=== PATIENT | female | born 1950 | race Caucasian/White ===

== ENCOUNTER → 2016-03-07 | Outpatient (CLI) | payer MEDICARE, OTHER ==
--- NOTE | 2016-03-08 07:51 | XR ---
EXAMINATION TYPE: XR abdomen 2V DATE OF EXAM: 03/07/2016 9:18 AM COMPARISON: NONE HISTORY: Right lower quadrant pain TECHNIQUE: Single supine KUB image of the abdomen is obtained. FINDINGS: The osseous structures are intact. The bowel gas pattern is nonspecific. Lung bases are clear. Post surgical change right upper quadrant. Nonspecific calcifications in the pelvis. IMPRESSION: 1. Nonspecific abdomen.
== END | disposition home or self-care (01) ==
LOC: RADXRYALE 09:06
PROVIDERS: ATTEND Physician Assistant Medical
DX: R10.9 Unspecified abdominal pain (principal)
CPT/HCPCS: 74020

== ENCOUNTER → 2016-03-13 | Outpatient (CLI) | payer MEDICARE, OTHER ==
--- NOTE | 2016-03-13 17:00 | CT ---
EXAMINATION TYPE: CT abdomen pelvis w con DATE OF EXAM: 03/13/2016 3:11 PM COMPARISON: 10/05/2014 INDICATION: Right lower quadrant pain and diarrhea. DLP: 535.30 mGycm, Automated exposure control for dose reduction was used. CONTRAST: 100 mL of Omnipaque 300. Study performed with Oral Contrast TECHNIQUE: Axial images were obtained from above the diaphragm to the pubic rami in the axial plane a t 5 mm thick sections. Reconstructed images are reviewed on the computer in the coronal plane. FINDINGS: Limited CT sections are obtained the lung bases. The lung bases are clear. CT ABDOMEN: Liver: Normal Spleen: Normal. Splenule is adjacent to the spleen. Pancreas: Normal Adrenal glands: The adrenal glands are normal. Gallbladder: Normal Kidneys: No masses are evident. No hydronephrosis is present. No cysts are present. Delayed images were obtained through the kidneys, which remain unremarkable. Aorta: Vascular calcification is within the aorta. Inferior vena cava: Normal. CT PELVIS: Multiple diverticuli within the sigmoid colon. There is wall thickening diffusely through the proxima l sigmoid colon into the descending colon from the mid transverse colon. Correlate for colitis. There are loops of bowel which are incompletely distended or lack oral contrast limiting their evaluation. Appendix: Normal as visualized. Urinary bladder: Decompressed with limited evaluation Genitourinary structures: Uterus and ovaries are not identified. There may be a 1.2 cm cyst in the ri ght adnexal region. Osseous structures: No suspicious lytic or sclerotic lesions. IMPRESSIONS: 1. Clinical correlation recommended for descending colon colitis. 2. Diverticulosis to the sigmoid colon without acute diverticulitis.
== END | disposition home or self-care (01) ==
LOC: RADCTMAIN 13:22
PROVIDERS: ATTEND Family Medicine
DX: K57.30 Diverticulosis of large intestine without perforation or abscess without bleeding (principal)
CPT/HCPCS: 74177; Q9967

== ENCOUNTER 2016-04-02 08:58 | Day surgery (SDC) | payer MEDICARE, OTHER ==
[2016-03-29 14:25] VITALS: BMI 30.2
[~2016-04-02 08:58] MED LIST: LACTATED RINGERS 1,000 ML IV SCH
[2016-04-02] MEDS ORDERED: LIDOCAINE 1% 20 ML VIAL (10MG/ML) FOR IV START SQ ONE (09:26)
[2016-04-02 09:37] VITALS: TEMP 98.8
[2016-04-02] MEDS ORDERED: PROPOFOL 10 MG/ML 20 ML VIAL IV ONE (10:17)
[2016-04-02] MEDS ORDERED: LIDOCAINE 1% INJ 10MG/ML (20 ML MDV) ONE (10:17)
[2016-04-02] MEDS ORDERED: GLYCOPYRROLATE 0.2 MG/ML 2 ML VIAL ONE (10:17)
--- NOTE | 2016-04-02 10:23 | P.GSHP ---
History of Present Illness H&P Date: 04/02/16 Chief Complaint: Colitis This a 65-year-old female who's had complaints of abdominal pain in the right left lower quadrant. Patient history of colitis. She presents today for colonoscopy. - Constitutional Constitutional: Reports as per HPI Past Medical History Past Medical History: CVA/TIA, Fibromyalgia, GERD/Reflux, Hyperlipidemia, Hypertension, Musculoskeletal Disorder, Pneumonia, Sleep Apnea/CPAP/BIPAP Additional Past Medical History / Comment(s): currently having lower abd pain with diarrhea with loss of control and no warning since Feb 2016, no longer b/p Rx,2008 TIA W/SLT WEAKNESS LT SIDE,no cpap,narcolepsy,MS History of Any Multi-Drug Resistant Organisms: None Reported Past Surgical History: Appendectomy, Cholecystectomy, Hysterectomy, Orthopedic Surgery Additional Past Surgical History / Comment(s): BREAST BIOPSY/CARPAL TUNNEL BILT. /RT WRIST SURG/BONE SPUR REMOVED FROM PELVIS/SURG FOR ACID REFLUX/ HEMORRHOIDECTOMY/THELMA CATARACTS Past Anesthesia/Blood Transfusion Reactions: No Reported Reaction Past Psychological History: No Psychological Hx Reported Smoking Status: Never smoker Past Alcohol Use History: Rare Past Drug Use History: None Reported - Past Family History Father Additional Family Medical History / Comment(s): at age 30 Sister(s) Family Medical History: Cancer Additional Family Medical History / Comment(s): BREAST Mother Family Medical History: COPD, Diabetes Mellitus, Renal Disease Medications and Allergies Home Medications Medication Instructions Recorded Confirmed Type Atorvastatin [Lipitor] 20 mg PO DAILY 06/13/14 03/29/16 History Celecoxib [CeleBREX] 50 mg PO QID PRN 06/13/14 04/02/16 History Clopidogrel [Plavix] 75 mg PO DAILY 06/13/14 04/02/16 History Famotidine [Pepcid] 20 mg PO BID 06/13/14 03/29/16 History Lansoprazole 30 mg PO DAILY 06/13/14 03/29/16 History oxyCODONE ER [OxyCONTIN] 15 mg PO TID 06/13/14 04/02/16 History Pregabalin [Lyrica] 100 mg PO TID 05/29/15 03/29/16 History Cyanocobalamin [Vitamin B-12] 1,000 mcg PO DAILY 03/29/16 03/29/16 History Allergies Allergy/AdvReac Type Severity Reaction Status Date / Time No Known Allergies Allergy Verified 03/29/16 14:11 Surgical - Exam Vital Signs Temp Pulse Resp BP Pulse Ox 98.8 F 58 L 16 134/72 100 04/02/16 09:33 04/02/16 09:33 04/02/16 09:33 04/02/16 09:33 04/02/16 09:33 - General well developed, no distress - Eyes PERRL - ENT normal pinna - Neck no masses - Respiratory normal expansion - Cardiovascular Rhythm: regular - Abdomen Abdomen: soft, non tender Assessment and Plan Plan: Colitis. We'll perform colonoscopy.
[2016-04-02 10:41] VITALS: RESP 18
--- NOTE | 2016-04-02 10:43 | P.OP ---
Date of Procedure: 04/02/16 Preoperative Diagnosis: Colitis Postoperative Diagnosis: Right colon polyp Diverticulosis of left colon and sigmoid colon Procedure(s) Performed: Colonoscopy Anesthesia: MAC Surgeon: Severo Meneses Pathology: other (Right colon polyp) Condition: stable Disposition: PACU Description of Procedure: Patient's placed on the endoscopy table in the lateral position. She received IV sedation. Digital rectal exam was performed which revealed no abnormalities. The flexible colonoscope was then placed patient anus and passed throughout the entire colon. The ileocecal valve was visualized. The cecum appeared normal. In the ascending colon there is a small polyp seen this removed the forcep. Remainder the ascending colon and transverse colon appeared normal. In the descending and sigmoid colon there was diverticulosis seen. There was increased diverticulosis in the sigmoid colon. The sigmoid colon appeared questionable inflamed. The scope was then brought back the rectum and this appeared normal. Scope was withdrawn for patient.
[2016-04-02 10:56] VITALS: BP 125/81; PULSE 61
== END 2016-04-02 11:30 | disposition home or self-care (01) ==
LOC: ORWHC2ENDO 08:58
PROVIDERS: ATTEND Surgery
DX: D12.2 Benign neoplasm of ascending colon (principal); K57.30 Diverticulosis of large intestine without perforation or abscess without bleeding; K21.9 Gastro-esophageal reflux disease without esophagitis; M79.7 Fibromyalgia; E78.5 Hyperlipidemia, unspecified; I10 Essential (primary) hypertension; G47.33 Obstructive sleep apnea (adult) (pediatric); Z79.02 Long term (current) use of antithrombotics/antiplatelets; Z79.891 Long term (current) use of opiate analgesic; Z79.899 Other long term (current) drug therapy; Z86.73 Personal history of transient ischemic attack (TIA), and cerebral infarction without residual deficits
CPT/HCPCS: 88305; 45380; J2001; J2704; 99153

== ENCOUNTER → 2016-04-29 | Outpatient (CLI) | payer MEDICARE, OTHER ==
[2016-04-29 09:32] LABS: EKG EKG PERFORMED
[2016-04-29 10:08] LABS: Basophils % (A) 0 %; CH 31.5; CHCM 33.1; Eosinophils # (A) 0.1 k/uL (0-0.7); Eosinophils % (A) 1 %; HCT 37.4 % (34.0-46.0); HDW 2.78; HGB 12.4 gm/dL (11.4-16.0); Luc # (Auto) 0.19; Luc % (Auto) 2; Lymphocytes # (A) 1.7 k/uL (1.0-4.8); Lymphocytes % (A) 18 %; MCH 31.8 pg (25.0-35.0); MCHC 33.3 g/dL (31.0-37.0); MCV 95.5 fL (80.0-100.0); Mean Platelet Volume 7.8; Monocytes # (A) 0.5 k/uL (0-1.0); Monocytes % (A) 5 %; Neutrophils # (A) 7.3 k/uL (1.3-7.7); Neutrophils % (A) 75 %; RBC 3.91 m/uL (3.80-5.40); RDW 14.1 % (11.5-15.5); WBC 9.8 k/uL (3.8-10.6); WBC (Perox) 9.92
[2016-04-29 10:42] LABS: Anion Gap 11 mmol/L; Carbon Dioxide 28 mmol/L (22-30); Chloride 106 mmol/L (98-107); Potassium 4.4 mmol/L (3.5-5.1); Sodium 145 mmol/L (137-145)
== END | disposition home or self-care (01) ==
LOC: LABPAT 08:43
PROVIDERS: ATTEND Surgery
DX: Z01.810 Encounter for preprocedural cardiovascular examination (principal); I10 Essential (primary) hypertension
CPT/HCPCS: 80051; 85025; 93005

== ENCOUNTER → 2016-04-29 | Outpatient (CLI) | payer MEDICARE, OTHER ==
[2016-04-29 10:31] LABS: Hemoglobin A1C 5.3 % (4.2-6.1)
[2016-04-29 10:42] LABS: Calcium 9.3 mg/dL (8.4-10.2)
[2016-04-30 13:09] LABS: Vitamin E (Alpha Tocopherol) 956 ug/dL (500-1800)
[2016-05-01 13:15] LABS: Mis test requested (Blood) Vitamin B12
[2016-05-06 16:35] LABS: Vitamin K 93 pg/mL (80-1160)
== END | disposition home or self-care (01) ==
LOC: LABWHC1 08:47
PROVIDERS: ATTEND Psychiatry & Neurology Pain Medicine
DX: G62.9 Polyneuropathy, unspecified (principal); R20.8 Other disturbances of skin sensation
CPT/HCPCS: 36415; 82306; 82310; 82550; 82607; 83036; 83519; 84207; 84425; 84446; 84590; 84591; 84597

== ENCOUNTER 2016-04-30 07:34 | Inpatient (IN) | payer MEDICARE, OTHER ==
[~2016-04-30 07:34] MED LIST changes: +DEXAMETHASONE SOD PHOSPHATE 10 MG/ML 1 ML VIAL IV ONE; +HEPARIN SODIUM,PORCINE 5,000 UNIT/ML 1 ML VIAL SQ ONE; +HYDROmorphone 1 MG/ML 1 ML SYRINGE IVP PRN; -LACTATED RINGERS 1,000 ML IV SCH; +LIDOCAINE 1% 20 ML VIAL (10MG/ML) FOR IV START INTRADERMA PRN; +MIDAZOLAM 2 MG/2 ML VIAL IV PRN; +ONDANSETRON 4 MG/2 ML VIAL IVP ONE; +SCOPOLAMINE 1.5MG/72HR PATCH TRANSDERM ONE; +ceFAZolin 2 GM in SODIUM CHLORIDE 0.9% 100 ML IVPB ONE; +metroNIDAZOLE-NS PMX 500 MG in SALINE 1 100ML.BAG IVPB ONE
[2016-04-30] MEDS: LACTATED RINGERS 1,000 ML IV SCH (08:41)
[2016-04-30] MEDS ORDERED: LIDOCAINE 1% 20 ML VIAL (10MG/ML) FOR IV START INTRADERMA ONE (08:41)
--- NOTE | 2016-04-30 08:42 | P.GSHP ---
History of Present Illness H&P Date: 04/30/16 Chief Complaint: Diverticulitis This is a 66-year-old female who's had long-standing problems with diverticulitis. Patient rents today for low anterior resection. Patient aware the risk of surgery including would infection bleeding anastomotic dehiscence and colostomy. - Constitutional Constitutional: Reports as per HPI Past Medical History Past Medical History: CVA/TIA, Fibromyalgia, GERD/Reflux, Hyperlipidemia, Hypertension, Musculoskeletal Disorder, Pneumonia, Sleep Apnea/CPAP/BIPAP Additional Past Medical History / Comment(s): currently having lower abd pain with diarrhea with loss of control and no warning since Feb 2016, no longer b/p Rx,2008 TIA W/SLT WEAKNESS LT SIDE,no cpap,narcolepsy,MS History of Any Multi-Drug Resistant Organisms: None Reported Past Surgical History: Appendectomy, Cholecystectomy, Hysterectomy, Orthopedic Surgery Additional Past Surgical History / Comment(s): BREAST BIOPSY/CARPAL TUNNEL BILT. /RT WRIST SURG/BONE SPUR REMOVED FROM PELVIS/SURG FOR ACID REFLUX/ HEMORRHOIDECTOMY/THELMA CATARACTS Past Anesthesia/Blood Transfusion Reactions: No Reported Reaction Past Psychological History: No Psychological Hx Reported Smoking Status: Never smoker Past Alcohol Use History: Rare Past Drug Use History: None Reported - Past Family History Father Additional Family Medical History / Comment(s): at age 30 Sister(s) Family Medical History: Cancer Additional Family Medical History / Comment(s): BREAST Mother Family Medical History: COPD, Diabetes Mellitus, Renal Disease Medications and Allergies Home Medications Medication Instructions Recorded Confirmed Type Atorvastatin [Lipitor] 20 mg PO DAILY 06/13/14 04/30/16 History Celecoxib [CeleBREX] 200 mg PO DAILY PRN 06/13/14 04/30/16 History Clopidogrel [Plavix] 75 mg PO DAILY 06/13/14 04/30/16 History Famotidine [Pepcid] 20 mg PO BID 06/13/14 04/30/16 History Lansoprazole 30 mg PO DAILY 06/13/14 04/30/16 History oxyCODONE ER [OxyCONTIN] 15 mg PO TID 06/13/14 04/30/16 History Pregabalin [Lyrica] 100 mg PO TID 05/29/15 04/30/16 History Cyanocobalamin [Vitamin B-12] 1,000 mcg PO BID 03/29/16 04/30/16 History Perampanel [Fycompa] 8 mg PO HS 04/26/16 04/30/16 History rOPINIRole HCL [Requip] 0.5 mg PO HS 04/26/16 04/30/16 History Allergies Allergy/AdvReac Type Severity Reaction Status Date / Time No Known Allergies Allergy Verified 04/30/16 08:17 Surgical - Exam Vital Signs Temp Pulse Resp BP Pulse Ox 97.8 F 77 16 104/79 96 04/30/16 08:11 04/30/16 08:11 04/30/16 08:11 04/30/16 08:11 04/30/16 08:11 - General well developed, no distress - Eyes PERRL - ENT normal pinna - Neck no masses - Respiratory normal expansion - Cardiovascular Rhythm: regular - Abdomen Abdomen: soft, non tender Assessment and Plan Plan: Diverticulosis. We'll perform low anterior resection.
[2016-04-30] MEDS ORDERED: fentaNYL (PF) 50 MCG/ML 2 ML AMP IV ONE (08:55)
[2016-04-30] MEDS ORDERED: NALBUPHINE 10 MG/ML AMPUL IV PRN (09:08)
[2016-04-30] MEDS ORDERED: diphenhydrAMINE 50 MG/ML 1 ML VIAL IVP PRN (09:08)
[2016-04-30] MEDS ORDERED: PROPOFOL 10 MG/ML 20 ML VIAL IV ONE (09:24)
[2016-04-30] MEDS ORDERED: NEOSTIGMINE 1 MG/ML 10 ML VIAL ONE (09:24)
[2016-04-30] MEDS ORDERED: SUCCINYLCHOLINE CHLORIDE 100 MG/5 ML SYR IV ONE (09:24)
[2016-04-30] MEDS ORDERED: ePHEDrine 50 MG/ML 1 ML AMP ONE (09:24)
[2016-04-30] MEDS ORDERED: MIDAZOLAM 2 MG/2 ML VIAL ONE (09:24)
[2016-04-30] MEDS ORDERED: ROCURONIUM BROMIDE 10 MG/ML 10 ML VIAL IV ONE (09:24)
[2016-04-30] MEDS ORDERED: LIDOCAINE 1% INJ 10MG/ML (20 ML MDV) ONE (09:24)
[2016-04-30] MEDS ORDERED: GLYCOPYRROLATE 0.2 MG/ML 2 ML VIAL ONE (09:24)
[2016-04-30] MEDS ORDERED: LACTATED RINGERS 1,000 ML IV ONE ×2 (10:30)
[2016-04-30] MEDS ORDERED: ONDANSETRON 4 MG/2 ML VIAL IVP PRN (11:13)
--- NOTE | 2016-04-30 11:13 | P.OP ---
Date of Procedure: 04/30/16 Preoperative Diagnosis: Diverticulitis Postoperative Diagnosis: Diverticulitis Incarcerated umbilical hernia Procedure(s) Performed: Low anterior resection Repair of incarcerated umbilical hernia Partial greater omentectomy Anesthesia: CHANDLER Surgeon: Severo Meneses Estimated Blood Loss (ml): 15 Pathology: other (Sigmoid colon, greater omentum) Condition: stable Disposition: PACU Description of Procedure: The patient's placed on the operating table in the supine position. She received general anesthesia. She was then placed in dorsal lithotomy position. Her abdomen was prepped and draped in the usual sterile fashion. The abdomen was entered through a low midline incision. The Bookwalter retractors placed a wound. The sigmoid colon was exposed. There appeared to be evidence of diverticular changes in the sigmoid colon. The sigmoid colon was mobilized medially by dividing the peritoneal attachments. And then the white line of Toldt was divided on the left colon. At this point the sigmoid colon was further mobilized towards the rectum a window was made in the mesial rectum and then the contour stapler was closed and fired across the proximal rectum. Next using the Enseal X one large jaw the mesentery of the rectum and sigmoid colon was divided. The left colon was transected with the GI stapler. And then the pursestring device was applied to the proximal colon. He colon was opened and then the 25 mm EEA staple anvil was placed in the colon and then the pursestring was secured. Next the EEA stapler was placed patient anus by the child welfare assistant. And then the stapler was positioned against the stomach date line and then the stapler was opened and the spike was driven through the staple line. The anvil was connected and then the stapler was closed and fired and then withdrawn. 2 intact tissue doughnut rings were removed from the stapler. At this point a hydro-receiving team member up was placed across the proximal colon and then the sigmoidoscope was placed patient anus and then the rectum was insufflated with air. There was a small pinpoint leak of air at the 12 o'clock position the staple line. This was buttressed with 3-0 GI silk. The rectum was then reinsufflated and there was no air leak seen. The abdomen was then irrigated. The fascia was closed with looped #1 PDS suture. During the fascial closure there was a 3 cm incarcerated umbilical hernia which was repaired. The incarcerated greater omentum was transected with the electrocautery and the defect was closed with 0 PDS suture. Skin was closed ed. Patient was sent to recovery in stable condition.
[2016-04-30] MEDS: D5-0.45% NACL WITH KCL 20MEQ/L 1,000 ML IV SCH ×2 (12:41→21:22)
[2016-04-30] MEDS: METOCLOPRAMIDE 5 MG/ML 2 ML VIAL IVP SCH ×2 (12:41→18:26)
[2016-04-30 13:45] VITALS: BMI 31.6
[2016-04-30] MEDS ORDERED: oxyCODONE ER 15 MG TAB.ER.12H PO SCH (16:00)
[2016-04-30] MEDS: PREGABALIN 100 MG CAP PO SCH ×2 (17:57→22:23)
--- NOTE | 2016-04-30 18:08 | CONS ---
DATE OF CONSULTATION: REASON FOR CONSULTATION: Perioperative hypotension. Patient is a 66-year-old with history of diverticulitis in the past. Patient was admitted for low anterior resection. Patient successfully underwent surgery. Postoperatively patient did clinically well except for being excessively drowsy today. Patient is hypotensive, with blood pressure systolic going up to high 70s. Patient denied any lightheadedness at this point of time. Patient when I saw her was excessively sleepy with slurry speech secondary to the pain medications she was receiving. I extensively counseled her regarding usage of narcotic medications and recovery. Patient did not pass gas yet. Does have absent or sluggish bowel sounds. REVIEW OF SYSTEMS: GENERAL: As described in HPI. CONSTITUTIONAL: No fever, no malaise, no fatigue. HEENT: No recent visual problems or hearing problems. Denied any sore throat. CARDIOVASCULAR: No chest pain, orthopnea, PND, no palpitations, no syncope. PULMONARY: No shortness of breath, no cough, no hemoptysis. GASTROINTESTINAL: No diarrhea, no nausea, no vomiting, no abdominal pain. Normoactive bowel sounds. NEUROLOGICAL: No headaches, no weakness, no numbness. HEMATOLOGICAL: Denies any bleeding or petechiae. GENITOURINARY: Denies any burning micturition, frequency, or urgency. MUSCULOSKELETAL/RHEUMATOLOGICAL: Denies any joint pain, swelling, or any muscle pain. ENDOCRINE: Denies any polyuria or polydipsia. The rest of the 14 point review of systems is negative. Past medical history is significant for: 1. CVA, TIA. 2. Fibromyalgia. 3. Gastroesophageal reflux disease. 4. Hyperlipidemia. 5. Hypertension. 6. Narcolepsy. I suspect it is mostly due to overuse of narcotics rather than actual narcolepsy. 7. Appendectomy. 8. Cholecystectomy. 9. Hysterectomy. 10. Orthopedic surgery. 11. Carpal tunnel surgery. SOCIAL HISTORY: Denied any smoking, alcohol abuse or any drug abuse. FAMILY HISTORY: Father at age 30. Mother had COPD, diabetes mellitus and renal disease. Home medications include: 1. Atorvastatin. 2. Celecoxib. 3. Plavix. 4. Famotidine. 5. Lansoprazole. 6. Oxycodone. 7. Pregabalin. 8. Cyanocobalamin. 9. ( ) 10. Perampanel (used for seizures). 11. Ropinirole. ALLERGIES: NO KNOWN DRUG ALLERGIES. PHYSICAL EXAMINATION: VITAL SIGNS: Temperature 97.8, pulse of 77, respiratory rate of 16. Blood pressure is 104/79. Saturating at 96% on room air. GENERAL: Patient is excessively drowsy due to narcotics she received. No other focal neurological deficits are appreciated. Patient when aroused is oriented x3. HEENT: Pupils are round and equally reacting to light. EOMI. No scleral icterus. No conjunctival pallor. Normocephalic, atraumatic. No pharyngeal erythema. No thyromegaly. CARDIOVASCULAR: S1 and S2 present. No murmurs, rubs, or gallops. PULMONARY: Chest is clear to auscultation, no wheezing or crackles. ABDOMEN: Sluggish or absent bowel sounds. Abdomen is soft, nontender, nondistended. Surgical site area appears to be clean. MUSCULOSKELETAL: No joint swelling or deformity. EXTREMITIES: No cyanosis, clubbing, or pedal edema. NEUROLOGICAL: Gross neurological examination did not reveal any focal deficits. SKIN: No rashes. LABORATORY DATA: Potassium is 3.9. Patient is on D5 half normal, which can be continued. I will repeat electrolytes and CBC tomorrow. Since patient is receiving large amounts of D5 half normal, my concern is electrolyte imbalances, including hyponatremia and hypochloremia. ASSESSMENT AND PLAN: 1. Hypotension in the perioperative period. I believe in her situation it is secondary to narcotic medications. I counseled her extensively regarding uses of Dilaudid. 2. Postoperative day 1, low anterior resection for diverticulitis. Postoperative management for that as per primary surgery service. 3. Hyperlipidemia. 4. Gastroesophageal reflux disease. 5. Seizure disorder. 6. Restless leg syndrome. 7. Fibromyalgia. For above-mentioned chronic medical problems, we can go ahead and continue her home medications. Since patient is already on high dose of narcotic opiates for pain, will not reorder oxycodone that she was taking at home. Patient has a history of CVA, TIA in the past, so Plavix in my opinion can be restarted if approved by Surgery. Thank you for letting me participate in this patient's care.
[2016-04-30] MEDS: BUPIVACAINE (PF) 0.5% 50 ML, HYDROmorphone 5 MG in SODIUM CHLORIDE 0.9% 198 ML EPIDURAL PRN (18:15)
[2016-04-30] MEDS ORDERED: PERAMPANEL 8 MG PO SCH (21:00)
[2016-04-30] MEDS ORDERED: SODIUM CHLORIDE 0.9% 250 ML IV ONE (21:14)
[2016-04-30] MEDS: NALOXONE 0.4 MG/ML 1 ML VIAL IV PRN ×2 (21:21→23:25)
[2016-04-30] MEDS: HEPARIN SODIUM,PORCINE 5,000 UNIT/ML 1 ML VIAL SQ SCH (22:30)
[2016-05-01] MEDS: METOCLOPRAMIDE 5 MG/ML 2 ML VIAL IVP SCH ×5 (00:58→23:25)
[2016-05-01] MEDS: D5-0.45% NACL WITH KCL 20MEQ/L 1,000 ML IV SCH ×3 (05:16→20:41)
[2016-05-01] MEDS: LACTATED RINGERS 1,000 ML IV SCH (06:08)
--- NOTE | 2016-05-01 07:28 | P.PN ---
Progress Note - Text Date: 05/01/2016 Time: 708 The patient is status post, low anterior resection, postoperative day number 1 The patient has no complaints of nausea vomiting or headache. The patient incurred some lower extremity weakness yesterday. The epidural was turned down to 2 mL's per hour. At present the patient has no numbness or weakness of her extremities. The epidural will be maintained and adjusted as needed.
[2016-05-01] MEDS: HEPARIN SODIUM,PORCINE 5,000 UNIT/ML 1 ML VIAL SQ SCH ×2 (08:02→21:18)
[2016-05-01] MEDS: PANTOPRAZOLE 40 MG TABLET PO SCH (08:02)
[2016-05-01] MEDS: ATORVASTATIN 20 MG TAB PO SCH (08:02)
[2016-05-01] MEDS: PREGABALIN 100 MG CAP PO SCH ×3 (08:02→21:18)
[2016-05-01] MEDS: CLOPIDOGREL 75 MG TAB PO SCH ×2 (08:02→10:20)
[2016-05-01 08:06] LABS: Basophils % (A) 0 %; CH 31.2; CHCM 32.9; Eosinophils % (A) 0 %; HCT 31.3 % (34.0-46.0); HDW 2.75; HGB 10.2 gm/dL (11.4-16.0); Luc # (Auto) 0.07; Luc % (Auto) 1; Lymphocytes # (A) 0.7 k/uL (1.0-4.8); Lymphocytes % (A) 5 %; MCHC 32.5 g/dL (31.0-37.0); MCV 95.3 fL (80.0-100.0); Mean Platelet Volume 7.7; Monocytes # (A) 0.6 k/uL (0-1.0); Monocytes % (A) 4 %; Neutrophils # (A) 11.9 k/uL (1.3-7.7); Neutrophils % (A) 90 %; RBC 3.28 m/uL (3.80-5.40); RDW 13.8 % (11.5-15.5); WBC 13.2 k/uL (3.8-10.6); WBC (Perox) 14.57
[2016-05-01 08:30] LABS: Anion Gap 10 mmol/L; Blood Urea Nitrogen 7 mg/dL (7-17); Calcium 8.7 mg/dL (8.4-10.2); Carbon Dioxide 25 mmol/L (22-30); Chloride 105 mmol/L (98-107); Glucose 165 mg/dL (74-99); Non-African American GFR(MDRD) >60 (>60 ml/min/1.73 sqM); Potassium 4.6 mmol/L (3.5-5.1); Sodium 140 mmol/L (137-145)
--- NOTE | 2016-05-01 10:46 | PN ---
Patient is a 66-year-old admitted with diverticulitis and low anterior section. Patient is clinically doing well except did not pass gas, did not move her bowel yet and patient's blood pressures are on the low-normal side without any symptoms at this point of time. REVIEW OF SYSTEMS: CARDIOVASCULAR: No chest pain, no orthopnea, no PND, no palpitations. PULMONARY: Denied any shortness of breath. No cough or hemoptysis. NEUROLOGIC: No headaches, no weakness, no numbness. GASTROINTESTINAL: As described in HPI. Medications were reviewed. PHYSICAL EXAMINATION: VITAL SIGNS: Temperature 97.9, pulse of 59, respiratory rate of 16, blood pressure is 89/54, saturating at 94% on room air. GENERAL: The patient is alert and oriented x3, not in any acute distress. Well developed, well nourished. HEENT: Pupils are round and equally reacting to light. EOMI. No scleral icterus. No conjunctival pallor. Normocephalic, atraumatic. No pharyngeal erythema. No thyromegaly. CARDIOVASCULAR: S1 and S2 present. No murmurs, rubs, or gallops. PULMONARY: Chest is clear to auscultation, no wheezing or crackles. MUSCULOSKELETAL: No joint swelling or deformity. EXTREMITIES: No cyanosis, clubbing, or pedal edema. NEUROLOGICAL: Gross neurological examination did not reveal any focal deficits. SKIN: No rashes. ABDOMINAL EXAMINATION: Abdomen is soft, nontender. There is an abdominal binder in place and patient's surgical site areas are cleaned, bowel sounds are sluggish or absent. LABORATORY DATA: CBC significant for elevated WBC count of 30,300, hemoglobin of 10.2. ASSESSMENT AND PLAN: 1. Hypotension in the perioperative area which is not uncommon, ( ) probably related to narcotics. Patient is asymptomatic. No further intervention. Patient is on gentle hydration, which can be continued. 2. Postoperative day one low anterior resection of diverticulitis. Management as per Primary Service. 3. Hyperlipidemia. 4. Gastroesophageal reflux disease. 5. Seizure disorder. 6. Restless leg syndrome. 7. Fibromyalgia. For above-mentioned chronic medical problems, we can continue his home medications. Will continue to follow the patient on as-needed basis.
--- NOTE | 2016-05-01 13:56 | P.PN ---
Subjective Principal diagnosis: Diverticulitis Patient is a 66-year-old female with medical history significant for long- standing problems with diverticulitis status post low anterior resection; repair of incarcerated umbilical hernia; partial greater omentectomy. Patient is evaluated on the medical floor she is postop day #1. Patient is feeling well. Denies chills, fevers, nausea, vomiting, shortness of breath, or chest pain. Incisional pain controlled. Patient denies flatus or bowel movements. Urine output adequate. Tolerating clear liquid diet. Objective - Vital Signs Vital signs: Vital Signs Temp 97.5 F L 05/01/16 12:07 Pulse 74 05/01/16 12:07 Resp 18 05/01/16 12:07 BP 98/61 05/01/16 12:07 Pulse Ox 96 05/01/16 12:07 Intake & Output 04/30/16 05/01/16 05/01/16 18:59 06:59 18:59 Intake Total 1750 1553.866 Output Total 793 770 5839 Balance 1125 1053.866 -1600 Weight 73.5 kg Intake: IV 1750 950 D5-0.45% NaCl with KCl 700 20Meq/l 1,000 ml @ 125 mls/hr IV .Q8H ÁNGEL Rx#: [id number] Sodium Chloride 0.9% 250 250 ml @ 999 mls/hr IV .Q16M ONE Rx#:[id number] Intake, IV Titration 13.866 Amount Bupivacaine (Pf) 0.5% 50 13.866 ml HYDROmorphone 5 mg In Sodium Chloride 0.9% 198 ml @ Per Protocol EPIDURAL .Q0M PRN Rx#: [id number] Oral 590 Output: Urine 993 840 5070 Uretheral (Strickland) 500 Estimated Blood Loss 15 Other: Voiding Method Indwelling Catheter Indwelling Catheter Indwelling Catheter # Voids 2 # Bowel Movements 2 2 - Exam GENERAL: Pt awake and alert, well-appearing, well-nourished, and in no acute distress. LUNGS: Breath sounds clear to auscultation bilaterally. No wheezes, rales, or rhonchi. HEART: Heart S1, S2, no S3 or S4. Right rate and rhythm. No murmurs, rubs or gallops. ABDOMEN: Soft, mild incisional tenderness, hypoactive bowel sounds. No guarding , no rebound. No masses or organomegaly appreciated. Abdominal dressing intact with minimal old cigarettes drainage. NEUROLOGICAL: Pt oriented x 3. - Labs CBC & Chem 7: 05/01/16 07:27 05/01/16 07:27 Labs: Abnormal Lab Results - Last 24 Hours (Table) 05/01/16 05/01/16 Range/Units 07:27 07:27 WBC 13.2 H (3.8-10.6) k/uL RBC 3.28 L (3.80-5.40) m/uL Hgb 10.2 L (11.4-16.0) gm/dL Hct 31.3 L (34.0-46.0) % Neutrophils # 11.9 H (1.3-7.7) k/uL Lymphocytes # 0.7 L (1.0-4.8) k/uL Glucose 165 H (74-99) mg/dL Assessment and Plan Plan: Impression: 1. Diverticulitis status post low anterior resection on 04/30/2016 2. Incarcerated umbilical hernia status post repair of incarcerated umbilical hernia on 04/30/2016 3. Partial greater omentectomy on 04/30/2016. 4. Leukocytosis suspect secondary to atelectasis. 5. Anemia suspect secondary to acute blood loss postoperatively and hemodilution. Plan: Continue to monitor patient. Continue clear liquid diet. Continue IV hydration. Continue epidural and Strickland catheter. Continue incentive spirometry 10 times an hour while awake. Increase activity. Continue follow medical team. Repeat CBC and BMP in a.m. The above impression and plan have been discussed and directed by Dr. Meneses. Tish SANDHU acting as scribe for Dr. Meneses.
[2016-05-02] MEDS: LACTATED RINGERS 1,000 ML IV SCH (04:07)
[2016-05-02] MEDS: METOCLOPRAMIDE 5 MG/ML 2 ML VIAL IVP SCH ×3 (05:48→17:24)
[2016-05-02] MEDS: D5-0.45% NACL WITH KCL 20MEQ/L 1,000 ML IV SCH ×3 (05:48→20:59)
[2016-05-02] MEDS: PANTOPRAZOLE 40 MG TABLET PO SCH (07:28)
[2016-05-02] MEDS: PREGABALIN 100 MG CAP PO SCH ×3 (07:28→20:54)
[2016-05-02] MEDS: HEPARIN SODIUM,PORCINE 5,000 UNIT/ML 1 ML VIAL SQ SCH ×2 (07:28→20:54)
[2016-05-02] MEDS: ATORVASTATIN 20 MG TAB PO SCH (07:28)
[2016-05-02 09:11] LABS: Basophils % (A) 0 %; CH 31.1; CHCM 32.5; Eosinophils % (A) 0 %; HCT 32.7 % (34.0-46.0); HDW 2.81; HGB 10.5 gm/dL (11.4-16.0); Luc # (Auto) 0.14; Luc % (Auto) 1; Lymphocytes # (A) 1.5 k/uL (1.0-4.8); Lymphocytes % (A) 13 %; MCH 30.9 pg (25.0-35.0); MCV 96.3 fL (80.0-100.0); Mean Platelet Volume 8.5; Monocytes # (A) 0.6 k/uL (0-1.0); Monocytes % (A) 6 %; Neutrophils # (A) 8.8 k/uL (1.3-7.7); Neutrophils % (A) 80 %; RBC 3.39 m/uL (3.80-5.40); RDW 14.2 % (11.5-15.5)
[2016-05-02 09:27] LABS: Anion Gap 6 mmol/L; Blood Urea Nitrogen 4 mg/dL (7-17); Calcium 8.8 mg/dL (8.4-10.2); Carbon Dioxide 29 mmol/L (22-30); Chloride 104 mmol/L (98-107); Glucose 131 mg/dL (74-99); Non-African American GFR(MDRD) >60 (>60 ml/min/1.73 sqM); Potassium 4.7 mmol/L (3.5-5.1); Sodium 139 mmol/L (137-145)
--- NOTE | 2016-05-02 11:37 | P.PN ---
Progress Note - Text Date: 05-02-16 Time: 717 The patient is status post low anterior resection, postoperative day number 2 The patient has no complaints of nausea vomiting or headache. The patient does not complain of any lower extremity numbness or weakness. The epidural is running at 3 mL per hour. The epidural will be maintained and adjusted as needed.
[2016-05-02] MEDS: BUPIVACAINE (PF) 0.5% 50 ML, HYDROmorphone 5 MG in SODIUM CHLORIDE 0.9% 198 ML EPIDURAL PRN (13:29)
--- NOTE | 2016-05-02 16:16 | P.PN ---
Subjective Principal diagnosis: Diverticulitis Patient is a 66-year-old female with medical history significant for long- standing problems with diverticulitis status post low anterior resection; repair of incarcerated umbilical hernia; partial greater omentectomy. Patient is evaluated on the medical floor she is postop day #2. Patient is feeling well. Denies chills, fevers, nausea, vomiting, shortness of breath, or chest pain. Incisional pain controlled. Patient reports flatus with 2 loose bowel movements. Urine output adequate. Tolerating clear liquid diet. Afebrile. WBC decreased to 11. Hemoglobin stable at 10.5. Objective - Vital Signs Vital signs: Vital Signs Temp 98.1 F 05/02/16 15:32 Pulse 72 05/02/16 15:32 Resp 18 05/02/16 15:32 BP 125/68 05/02/16 15:32 Pulse Ox 93 L 05/02/16 15:32 Intake & Output 05/01/16 05/02/16 05/02/16 18:59 06:59 18:59 Intake Total 1279.2 50.35 Output Total 1900 1900 1500 Balance -1900 -620.8 -1449.65 Intake: IV 1250 D5-0.45% NaCl with KCl 1250 20Meq/l 1,000 ml @ 125 mls/hr IV .Q8H [facility] Rx#: [id number] Intake, IV Titration 29.2 50.35 Amount Bupivacaine (Pf) 0.5% 50 29.2 50.35 ml HYDROmorphone 5 mg In Sodium Chloride 0.9% 198 ml @ Per Protocol EPIDURAL .Q0M PRN Rx#: [id number] Output: Urine 1900 1900 1500 Uretheral (Strickland) 1700 Other: Voiding Method Indwelling Catheter Indwelling Catheter Indwelling Catheter # Bowel Movements 1 - Exam GENERAL: Pt awake and alert, well-appearing, well-nourished, and in no acute distress. LUNGS: Breath sounds clear to auscultation bilaterally. No wheezes, rales, or rhonchi. HEART: Heart S1, S2, no S3 or S4. Right rate and rhythm. No murmurs, rubs or gallops. ABDOMEN: Soft, mild incisional tenderness, hypoactive bowel sounds. No guarding , no rebound. No masses or organomegaly appreciated. Abdominal dressing intact with minimal old sanguinous drainage. NEUROLOGICAL: Pt oriented x 3. - Labs CBC & Chem 7: 05/02/16 08:25 05/02/16 08:25 Labs: Abnormal Lab Results - Last 24 Hours (Table) 05/02/16 05/02/16 Range/Units 08:25 08:25 WBC 11.0 H (3.8-10.6) k/uL RBC 3.39 L (3.80-5.40) m/uL Hgb 10.5 L (11.4-16.0) gm/dL Hct 32.7 L (34.0-46.0) % Neutrophils # 8.8 H (1.3-7.7) k/uL BUN 4 L (7-17) mg/dL Glucose 131 H (74-99) mg/dL Assessment and Plan Plan: Impression: 1. Diverticulitis status post low anterior resection on 04/30/2016 2. Incarcerated umbilical hernia status post repair of incarcerated umbilical hernia on 04/30/2016 3. Partial greater omentectomy on 04/30/2016. 4. Leukocytosis suspect secondary to atelectasis, improved. 5. Anemia suspect secondary to acute blood loss postoperatively and hemodilution. Plan: Continue to monitor patient. Advance diet to full liquid. Continue IV hydration. Continue epidural and Strickland catheter. Continue incentive spirometry 10 times an hour while awake. Increase activity. Continue follow medical team. Repeat CBC and BMP in a.m. The above impression and plan have been discussed and directed by Dr. Meneses. Tish SANDHU acting as scribe for Dr. Meneses.
[2016-05-03] MEDS: METOCLOPRAMIDE 5 MG/ML 2 ML VIAL IVP SCH ×5 (01:05→23:37)
[2016-05-03] MEDS: D5-0.45% NACL WITH KCL 20MEQ/L 1,000 ML IV SCH ×4 (06:00→22:17)
[2016-05-03] MEDS: LACTATED RINGERS 1,000 ML IV SCH (06:00)
[2016-05-03 07:32] LABS: Basophils % (A) 0 %; CH 31.2; CHCM 32.9; Eosinophils # (A) 0.1 k/uL (0-0.7); Eosinophils % (A) 1 %; HCT 30.2 % (34.0-46.0); HDW 2.88; HGB 9.9 gm/dL (11.4-16.0); Luc # (Auto) 0.14; Luc % (Auto) 2; Lymphocytes # (A) 2.1 k/uL (1.0-4.8); Lymphocytes % (A) 24 %; MCH 31.4 pg (25.0-35.0); MCHC 32.8 g/dL (31.0-37.0); MCV 95.5 fL (80.0-100.0); Mean Platelet Volume 8.1; Monocytes # (A) 0.6 k/uL (0-1.0); Monocytes % (A) 8 %; Neutrophils # (A) 5.5 k/uL (1.3-7.7); Neutrophils % (A) 65 %; RBC 3.16 m/uL (3.80-5.40); RDW 14.1 % (11.5-15.5); WBC 8.5 k/uL (3.8-10.6); WBC (Perox) 8.85
[2016-05-03] MEDS: PANTOPRAZOLE 40 MG TABLET PO SCH (07:58)
[2016-05-03] MEDS: HEPARIN SODIUM,PORCINE 5,000 UNIT/ML 1 ML VIAL SQ SCH ×2 (07:59→22:17)
[2016-05-03] MEDS: ATORVASTATIN 20 MG TAB PO SCH (07:59)
[2016-05-03] MEDS: PREGABALIN 100 MG CAP PO SCH ×3 (07:59→22:18)
[2016-05-03 08:01] LABS: Anion Gap 6 mmol/L; Blood Urea Nitrogen 3 mg/dL (7-17); Calcium 8.8 mg/dL (8.4-10.2); Carbon Dioxide 29 mmol/L (22-30); Chloride 105 mmol/L (98-107); Glucose 92 mg/dL (74-99); Non-African American GFR(MDRD) >60 (>60 ml/min/1.73 sqM); Potassium 4.6 mmol/L (3.5-5.1); Sodium 140 mmol/L (137-145)
--- NOTE | 2016-05-03 08:22 | P.PN ---
Progress Note - Text 05/03 726am 66-year-old female status post low anterior resection. Epidural solution running at 3 mL an hour with VAS of 3. No motor or sensory deficits. Plan DC epidural nurse notified
[2016-05-03] MEDS ORDERED: HYDROcodone/APAP 5-325MG 1 EACH TAB PO PRN ×2 (08:37)
[2016-05-03] MEDS: HYDROmorphone 1 MG/ML 1 ML SYRINGE IVP PRN ×2 (11:25→22:26)
[2016-05-03] MEDS: oxyCODONE ER 15 MG TAB.ER.12H PO SCH (14:03)
--- NOTE | 2016-05-03 14:21 | P.PN ---
Subjective Principal diagnosis: Diverticulitis Patient is a 66-year-old female with medical history significant for long- standing problems with diverticulitis status post low anterior resection; repair of incarcerated umbilical hernia; partial greater omentectomy. Patient is evaluated on the medical floor she is postop day #3. Patient is feeling well. Denies chills, fevers, nausea, vomiting, shortness of breath, or chest pain. Incisional pain controlled. Patient reports flatus with loose bowel movements. Urine output adequate. Tolerating full liquid diet. Afebrile. WBC decreased to 8.5. Hemoglobin stable at 9.9. Objective - Vital Signs Vital signs: Vital Signs Temp 97.6 F 05/03/16 08:00 Pulse 58 L 05/03/16 08:00 Resp 16 05/03/16 08:00 BP 146/64 05/03/16 08:00 Pulse Ox 97 05/03/16 08:00 Intake & Output 05/02/16 05/03/16 05/03/16 18:59 06:59 18:59 Intake Total 50.35 1345 Output Total 1900 4100 1100 Balance -1849.65 -2755 -1100 Intake: IV 500 D5-0.45% NaCl with KCl 500 20Meq/l 1,000 ml @ 125 mls/hr IV .Q8H [facility] Rx#: [id number] Intake, IV Titration 50.35 625 Amount Bupivacaine (Pf) 0.5% 50 50.35 ml HYDROmorphone 5 mg In Sodium Chloride 0.9% 198 ml @ Per Protocol EPIDURAL .Q0M PRN Rx#: [id number] D5-0.45% NaCl with KCl 625 20Meq/l 1,000 ml @ 125 mls/hr IV .Q8H [facility] Rx#: [id number] Oral 220 Output: Urine 1900 4100 1100 Uretheral (Strickland) 1700 Other: Voiding Method Indwelling Catheter Indwelling Catheter # Bowel Movements 1 - Exam GENERAL: Pt awake and alert, well-appearing, well-nourished, and in no acute distress. LUNGS: Breath sounds clear to auscultation bilaterally. No wheezes, rales, or rhonchi. HEART: Heart S1, S2, no S3 or S4. Right rate and rhythm. No murmurs, rubs or gallops. ABDOMEN: Soft, mild incisional tenderness, active bowel sounds. No guarding, no rebound. No masses or organomegaly appreciated. Abdominal dressing intact with minimal old sanguinous drainage. NEUROLOGICAL: Pt oriented x 3. - Labs CBC & Chem 7: 05/03/16 07:01 05/03/16 07:01 Labs: Abnormal Lab Results - Last 24 Hours (Table) 05/03/16 05/03/16 Range/Units 07:01 07:01 RBC 3.16 L (3.80-5.40) m/uL Hgb 9.9 L (11.4-16.0) gm/dL Hct 30.2 L (34.0-46.0) % BUN 3 L (7-17) mg/dL Assessment and Plan Plan: Impression: 1. Diverticulitis status post low anterior resection on 04/30/2016 2. Incarcerated umbilical hernia status post repair of incarcerated umbilical hernia on 04/30/2016 3. Partial greater omentectomy on 04/30/2016. 4. Anemia suspect secondary to acute blood loss postoperatively and hemodilution, stable. Plan: Continue to monitor patient. Advance diet to soft. Decrease IV fluids to 50 cc /hr. Discontinue epidural and Strickland catheter. Start oral pain medications. Continue incentive spirometry 10 times an hour while awake. Increase activity. Continue follow medical team. Repeat CBC and BMP in a.m. The above impression and plan have been discussed and directed by Dr. Meneses. Tish SANDHU acting as scribe for Dr. Meneses.
[2016-05-04] MEDS: oxyCODONE ER 15 MG TAB.ER.12H PO SCH ×3 (01:10→17:38)
[2016-05-04] MEDS: METOCLOPRAMIDE 5 MG/ML 2 ML VIAL IVP SCH ×3 (06:13→17:39)
[2016-05-04 07:38] LABS: Basophils % (A) 0 %; CH 31.6; CHCM 33.4; Eosinophils # (A) 0.1 k/uL (0-0.7); Eosinophils % (A) 1 %; HCT 34.4 % (34.0-46.0); HDW 2.91; HGB 11.4 gm/dL (11.4-16.0); Luc # (Auto) 0.14; Luc % (Auto) 2; Lymphocytes # (A) 1.9 k/uL (1.0-4.8); Lymphocytes % (A) 20 %; MCH 31.5 pg (25.0-35.0); MCV 95.4 fL (80.0-100.0); Monocytes # (A) 0.6 k/uL (0-1.0); Monocytes % (A) 6 %; Neutrophils # (A) 6.7 k/uL (1.3-7.7); Neutrophils % (A) 71 %; RBC 3.61 m/uL (3.80-5.40); RDW 14.1 % (11.5-15.5); WBC 9.5 k/uL (3.8-10.6); WBC (Perox) 10.47
[2016-05-04] MEDS: HEPARIN SODIUM,PORCINE 5,000 UNIT/ML 1 ML VIAL SQ SCH ×2 (07:38→20:55)
[2016-05-04] MEDS: PREGABALIN 100 MG CAP PO SCH ×3 (07:38→20:55)
[2016-05-04] MEDS: PANTOPRAZOLE 40 MG TABLET PO SCH (07:38)
[2016-05-04] MEDS: ATORVASTATIN 20 MG TAB PO SCH (07:38)
[2016-05-04] MEDS: HYDROmorphone 1 MG/ML 1 ML SYRINGE IVP PRN (07:45)
[2016-05-04 07:56] LABS: Anion Gap 7 mmol/L; Blood Urea Nitrogen 3 mg/dL (7-17); Calcium 9.2 mg/dL (8.4-10.2); Carbon Dioxide 29 mmol/L (22-30); Chloride 104 mmol/L (98-107); Glucose 99 mg/dL (74-99); Non-African American GFR(MDRD) >60 (>60 ml/min/1.73 sqM); Potassium 4.6 mmol/L (3.5-5.1); Sodium 140 mmol/L (137-145)
--- NOTE | 2016-05-04 10:58 | P.PN ---
Progress Note - Text The patient feels well today. She has some complaints of incisional pain. She' s not had any significant flatus or dominant yesterday. On exam her vital signs appear stable. Her abdomen is soft with some incisional tenderness. There is no rebound or guarding. Patient hopefully discharge home tomorrow. She'll remain on her full liquid diet.
[2016-05-04] MEDS ORDERED: traMADol 50 MG TAB PO PRN (11:20)
--- NOTE | 2016-05-04 12:41 | PN ---
Patient is clinically doing well, but patient did not move her bowel or pass gas. I counseled her to hold off on narcotic medications. Instead patient will be started on Tramadol. I will encourage her to ambulate. REVIEW OF SYSTEMS: CARDIOVASCULAR: No chest pain, no orthopnea, no PND, no palpitations. PULMONARY: Denied any shortness of breath. No cough or hemoptysis. GASTROINTESTINAL: No diarrhea, nausea or vomiting. No abdominal pain. Normoactive bowel sounds. NEUROLOGIC: No headaches, no weakness, no numbness. Medications were reviewed. PHYSICAL EXAMINATION: VITAL SIGNS: Temperature 98.4, pulse of 86, respiratory rate of 18, blood pressure 128/73, saturating at 97% on room air. GENERAL: The patient is alert and oriented x3, not in any acute distress. Well developed, well nourished. HEENT: Pupils are round and equally reacting to light. EOMI. No scleral icterus. No conjunctival pallor. Normocephalic, atraumatic. No pharyngeal erythema. No thyromegaly. CARDIOVASCULAR: S1 and S2 present. No murmurs, rubs, or gallops. PULMONARY: Chest is clear to auscultation, no wheezing or crackles. ABDOMEN: Surgical site area appears to be clean. Patient has bowel sounds, but they are sluggish. MUSCULOSKELETAL: No joint swelling or deformity. EXTREMITIES: No cyanosis, clubbing, or pedal edema. NEUROLOGICAL: Gross neurological examination did not reveal any focal deficits. SKIN: No rashes. LABORATORY DATA: None available from today. The lab data from today are essentially within normal limits. The patient is on D5 half normal saline, in spite of which patient's electrolytes are essentially within normal limits. So she can continue on the same fluid. ASSESSMENT AND PLAN: 1. Hypotension in perioperative period, which resolved at this point of time. 2. Postoperative low anterior resection. Patient did not move her bowel yet and avoid taking opiates as mentioned above and ambulate the patient. 3. Hyperlipidemia. 4. Gastroesophageal reflux disease. 5. Seizure disorder. 6. Restless leg syndrome. 7. Fibromyalgia. PLAN: As mentioned above in the interval history. For the rest of the chronic medical problems she can continue her home medications. Will continue to follow the patient only on an as-needed basis. Thank you for letting me participate this patient's care.
[2016-05-04 22:30] VITALS: RESP 16
[2016-05-05] MEDS: oxyCODONE ER 15 MG TAB.ER.12H PO SCH ×2 (00:42→07:50)
[2016-05-05] MEDS: METOCLOPRAMIDE 5 MG/ML 2 ML VIAL IVP SCH ×2 (00:46→05:26)
[2016-05-05] MEDS: D5-0.45% NACL WITH KCL 20MEQ/L 1,000 ML IV SCH (05:27)
[2016-05-05 05:34] VITALS: BP 126/74; TEMP 100.6
[2016-05-05] MEDS ORDERED: ACETAMINOPHEN TAB 325 MG TAB PO PRN (05:43)
[2016-05-05] MEDS: PANTOPRAZOLE 40 MG TABLET PO SCH (07:50)
[2016-05-05] MEDS: ATORVASTATIN 20 MG TAB PO SCH (07:51)
[2016-05-05] MEDS: HEPARIN SODIUM,PORCINE 5,000 UNIT/ML 1 ML VIAL SQ SCH (07:51)
[2016-05-05] MEDS: PREGABALIN 100 MG CAP PO SCH (07:51)
[2016-05-05 09:26] VITALS: PULSE 58
--- NOTE | 2016-05-05 10:05 | P.DS ---
Providers Date of admission: 04/30/16 07:34 Expected date of discharge: 05/05/16 Attending physician: Severo Meneses Consults: 04/30/16 11:13 Consult Physician Routine Consulting Provider: Mikal Wasserman Consult Reason/Comments: Medical management Do you want consulting provider notified?: Yes Primary care physician: Omid Hunter [facility] Course: This a 66-year-old female who was admitted to the hospital and underwent low anterior resection for diverticulitis. Patient did well postoperatively. Please see hospital chart for details. Procedures: Low anterior resection Patient Condition at Discharge: Good Plan - Discharge Summary New Discharge Prescriptions: HYDROcodone/APAP 7.5-325MG [[place] 7.5] 1 each PO Q4H PRN #60 tab PRN Reason: Pain Discharge Medication List Atorvastatin [Lipitor] 20 mg PO DAILY 06/13/14 [History] Clopidogrel [Plavix] 75 mg PO DAILY 06/13/14 [History] Famotidine [Pepcid] 20 mg PO BID 06/13/14 [History] Lansoprazole 30 mg PO DAILY 06/13/14 [History] oxyCODONE ER [OxyCONTIN] 15 mg PO TID 06/13/14 [History] Pregabalin [Lyrica] 100 mg PO TID 05/29/15 [History] Cyanocobalamin [Vitamin B-12] 1,000 mcg PO BID 03/29/16 [History] rOPINIRole HCL [Requip] 0.5 mg PO HS 04/26/16 [History] Celecoxib [CeleBREX] 200 mg PO DAILY PRN 04/30/16 [History] Perampanel [Fycompa] 8 mg PO HS 04/30/16 [History] HYDROcodone/APAP 7.5-325MG [[place] 7.5] 1 each PO Q4H PRN #60 tab 05/05/16 [Rx] Follow up Appointment(s)/Referral(s): Omid Hunter DO [Primary Care Provider] - 1 Week Severo Meneses MD [STAFF PHYSICIAN] - 1 Week Patient Instructions/Handouts: Colectomy (DC) Activity/Diet/Wound Care/Special Instructions: No heavy lifting, pushing, or pulling items greater than 10 pounds. Soft diet Shower daily, no soaking in bath tubs, pools, or hot tubs. No driving while taking pain medication. Notify surgeon with any signs or symptoms of infection, increased pain, or not tolerating diet. Discharge Disposition: HOME SELF-CARE
== END 2016-05-05 12:25 | disposition home or self-care (01) | DRG 330 ==
LOC: 2ORWHC 07:34 → 5MS5E 11:33
PROVIDERS: ADMIT Surgery; ATTEND Surgery
PROC: 0WQF0ZZ Repair Abdominal Wall, Open Approach (ICD-10-PCS; principal; 2016-04-30 09:25)
PROC: 0DTN0ZZ Resection of Sigmoid Colon, Open Approach (ICD-10-PCS; principal; 2016-04-30 09:25)
PROC: 0DBS0ZZ (ICD-10-PCS; principal; 2016-04-30 09:25)
DX: K57.92 Diverticulitis of intestine, part unspecified, without perforation or abscess without bleeding (principal); D62 Acute posthemorrhagic anemia; I10 Essential (primary) hypertension; E78.5 Hyperlipidemia, unspecified; G25.81 Restless legs syndrome; G40.909 Epilepsy, unspecified, not intractable, without status epilepticus; G47.30 Sleep apnea, unspecified; K21.9 Gastro-esophageal reflux disease without esophagitis; M79.7 Fibromyalgia; Z86.73 Personal history of transient ischemic attack (TIA), and cerebral infarction without residual deficits; Z79.02 Long term (current) use of antithrombotics/antiplatelets; Z79.899 Other long term (current) drug therapy
CPT/HCPCS: 36415; 80048; 80051; 82306; 82310; 82550; 82607; 83036; 83519; 84132; 84207; 84425; 84446; 84590; 84591; 84597; 85025; 86850; 86900; 86901; 88305; 88307; 88342; 93005

== ENCOUNTER 2016-06-12 10:39 | Day surgery (SDC) | payer MEDICARE, OTHER ==
[2016-06-10 09:24] VITALS: BMI 29.9
[~2016-06-12 10:39] MED LIST changes: -DEXAMETHASONE SOD PHOSPHATE 10 MG/ML 1 ML VIAL IV ONE; -HEPARIN SODIUM,PORCINE 5,000 UNIT/ML 1 ML VIAL SQ ONE; -HYDROmorphone 1 MG/ML 1 ML SYRINGE IVP PRN; +LACTATED RINGERS 1,000 ML IV SCH; -MIDAZOLAM 2 MG/2 ML VIAL IV PRN; -ONDANSETRON 4 MG/2 ML VIAL IVP ONE; -SCOPOLAMINE 1.5MG/72HR PATCH TRANSDERM ONE; -ceFAZolin 2 GM in SODIUM CHLORIDE 0.9% 100 ML IVPB ONE; -metroNIDAZOLE-NS PMX 500 MG in SALINE 1 100ML.BAG IVPB ONE
[2016-06-12 11:25] VITALS: RESP 18; TEMP 98.1
[2016-06-12] MEDS ORDERED: GLYCOPYRROLATE 0.2 MG/ML 2 ML VIAL ONE (12:46)
[2016-06-12] MEDS ORDERED: PROPOFOL 10 MG/ML 20 ML VIAL IV ONE (12:46)
--- NOTE | 2016-06-12 13:17 | P.GSHP ---
History of Present Illness H&P Date: 06/12/16 Chief Complaint: GERD This is a 66-year-old female who presents today for EGD. She's had issues with GERD. Past Medical History Past Medical History: CVA/TIA, Fibromyalgia, GERD/Reflux, Hyperlipidemia, Hypertension, Musculoskeletal Disorder, Pneumonia, Sleep Apnea/CPAP/BIPAP Additional Past Medical History / Comment(s): NO CPAP, HX OF MS, STATES HAS HAD RECENT VERTIGO AND HAS HAD FALLS, RESTLESS LEG, SLIGHT LEFT SIDED WEAKNESS FROM TIA History of Any Multi-Drug Resistant Organisms: None Reported Past Surgical History: Appendectomy, Bowel Resection, Cholecystectomy, Hysterectomy, Orthopedic Surgery Additional Past Surgical History / Comment(s): BREAST BIOPSY/CARPAL TUNNEL BILT. /RT WRIST SURG/BONE SPUR REMOVED FROM PELVIS/SURG FOR ACID REFLUX/ HEMORRHOIDECTOMY/THELMA CATARACTS Past Anesthesia/Blood Transfusion Reactions: No Reported Reaction Past Psychological History: No Psychological Hx Reported Smoking Status: Never smoker Past Alcohol Use History: Rare Past Drug Use History: None Reported - Past Family History Father Additional Family Medical History / Comment(s): at age 30 Sister(s) Family Medical History: Cancer Additional Family Medical History / Comment(s): BREAST Mother Family Medical History: COPD, Diabetes Mellitus, Renal Disease Medications and Allergies Home Medications Medication Instructions Recorded Confirmed Type Atorvastatin [Lipitor] 20 mg PO DAILY 06/13/14 06/12/16 History Clopidogrel [Plavix] 75 mg PO DAILY 06/13/14 06/12/16 History Famotidine [Pepcid] 20 mg PO BID 06/13/14 06/12/16 History Lansoprazole 30 mg PO DAILY 06/13/14 06/12/16 History oxyCODONE ER [OxyCONTIN] 15 mg PO TID PRN 06/13/14 06/12/16 History Pregabalin [Lyrica] 100 mg PO TID 05/29/15 06/12/16 History Cyanocobalamin [Vitamin B-12] 1,000 mcg PO BID 03/29/16 06/12/16 History rOPINIRole HCL [Requip] 0.5 mg PO HS 04/26/16 06/12/16 History Celecoxib [CeleBREX] 200 mg PO DAILY PRN 04/30/16 06/12/16 History Perampanel [Fycompa] 8 mg PO HS 04/30/16 06/12/16 History Allergies Allergy/AdvReac Type Severity Reaction Status Date / Time No Known Allergies Allergy Verified 06/12/16 11:25 Surgical - Exam Vital Signs Temp Pulse Resp BP Pulse Ox 98.1 F 79 18 129/79 100 06/12/16 11:23 06/12/16 11:23 06/12/16 11:23 06/12/16 11:23 06/12/16 11:23 - General well developed, no distress - Eyes PERRL - ENT normal pinna - Neck no masses - Respiratory normal expansion - Cardiovascular Rhythm: regular - Abdomen Abdomen: soft, non tender Assessment and Plan Plan: GERD. We'll perform EGD.
--- NOTE | 2016-06-12 13:20 | P.OP ---
Date of Procedure: 06/12/16 Preoperative Diagnosis: GERD Postoperative Diagnosis: Mild antral gastritis No evidence of hiatal hernia Mild esophagitis No evidence of GE junction stricture Procedure(s) Performed: EGD Anesthesia: MAC Surgeon: Severo Meneses Pathology: other (Antrum, esophagus) Condition: stable Disposition: PACU Description of Procedure: The patient's placed on the endoscopy table in the lateral position. She received IV sedation. The gastroscope some placed oropharynx passed in the esophagus and into the stomach. Scope was then placed through the pylorus. The first and second portion of the duodenum appeared normal. The scope was then brought back the antrum this. Mildly inflamed. A biopsies performed. The scope was then brought brought back into the stomach and then the scope was retroflexed. There was no evidence of any other gastric pathology. There is no hiatal hernia. The GE junction was at 40 cm. The GE junction appeared slightly tight in appearance. A 20 mm balloon was placed across the GE junction in this area was dilated. The distal esophagus appeared mildly inflamed a biopsies performed. The proximal esophagus appeared normal. The scope was withdrawn for patient.
[2016-06-12 14:08] VITALS: BP 121/80; PULSE 67
== END 2016-06-12 14:16 | disposition home or self-care (01) ==
LOC: ORWHC2ENDO 10:39
PROVIDERS: ATTEND Surgery
DX: K21.0 Gastro-esophageal reflux disease with esophagitis (principal); K29.50 Unspecified chronic gastritis without bleeding; I10 Essential (primary) hypertension; E78.5 Hyperlipidemia, unspecified; G47.33 Obstructive sleep apnea (adult) (pediatric); M79.7 Fibromyalgia; Z86.73 Personal history of transient ischemic attack (TIA), and cerebral infarction without residual deficits; Z79.899 Other long term (current) drug therapy; Z79.02 Long term (current) use of antithrombotics/antiplatelets
CPT/HCPCS: 88305; 88342; 43239; 43249; J2704; C1726

== ENCOUNTER 2016-10-18 15:55 | Observation (INO) | payer MEDICARE, OTHER ==
--- NOTE | 2016-10-18 16:54 | ED ---
Neuro HPI - General Chief Complaint: Neuro Symptoms/Deficit Stated Complaint: left side facial numbness/Dr Miner Time Seen by Provider: 10/18/16 16:37 Source: patient, RN notes reviewed Mode of arrival: ambulatory Limitations: no limitations - History of Present Illness Is the patient presenting with stroke symptoms?: No Initial Comments: This is a 66-year-old female history of TIA who states she was at her neurologist's office having a procedure where they sprayed nasal spray in both nostrils for a headache she's had for 4 days who states he started developing some left-sided facial tingling and numbness. 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 She also states her left ear is bothering her recently she has no prior history of sinus disease no headache she did have fever chills and sweats for last 2 weeks intermittently no cough or phlegm production she does have frequent urination but no dysuria or hematuria. She still has some numbness at this time. She was noted at the time of the nasal spray at 3 PM today he'll blood pressure 185/ 105. She states the headache is global on both sides of her head and to the base of her neck. No neck pain no back pain. - Related Data Home Medications: Home Medications Medication Instructions Recorded Confirmed Atorvastatin [Lipitor] 20 mg PO QAM 06/13/14 10/18/16 Famotidine [Pepcid] 20 mg PO BID 06/13/14 10/18/16 Lansoprazole 30 mg PO QAM 06/13/14 10/18/16 Pregabalin [Lyrica] 100 mg PO TID 05/29/15 10/18/16 rOPINIRole HCL [Requip] 0.5 mg PO HS 04/26/16 10/18/16 Celecoxib [CeleBREX] 200 mg PO HS 04/30/16 10/18/16 Perampanel [Fycompa] 8 mg PO HS 04/30/16 10/18/16 Cyanocobalamin (Vitamin B-12) 1,000 mcg PO BID 10/18/16 10/18/16 [Vitamin B-12] Primidone [Mysoline] 25 mg PO W/SUPPER 10/18/16 10/18/16 oxyCODONE HCL [Roxicodone] 15 mg PO TID PRN 10/18/16 10/18/16 Allergies/Adverse Reactions: Allergies Allergy/AdvReac Type Severity Reaction Status Date / Time No Known Allergies Allergy Verified 10/18/16 16:30 Review of Systems ROS Statement: Those systems with pertinent positive or pertinent negative responses have been documented in the HPI. ROS Other: All systems not noted in ROS Statement are negative. General Exam - General Exam Comments Initial Comments: This is a well little pulmonary awake alert oriented 3 female Limitations: no limitations General appearance: alert, in no apparent distress Head exam: Present: atraumatic, normocephalic, normal inspection Eye exam: Present: normal appearance, PERRL, EOMI. Absent: scleral icterus, conjunctival injection, periorbital swelling ENT exam: Present: normal oropharynx, mucous membranes moist, other (The left hepatic membranes dull white compared to the more normal. Right side. There is some discomfort with percussion over the frontal and maxillary sinuses.) Neck exam: Present: normal inspection, full ROM. Absent: tenderness, meningismus, lymphadenopathy Respiratory exam: Present: normal lung sounds bilaterally. Absent: respiratory distress, wheezes, rales, rhonchi, stridor Cardiovascular Exam: Present: regular rate, normal rhythm, normal heart sounds. Absent: systolic murmur, diastolic murmur, rubs, gallop, clicks GI/Abdominal exam: Present: soft, normal bowel sounds. Absent: distended, tenderness, guarding, rebound, rigid Extremities exam: Present: normal inspection, full ROM, normal capillary refill. Absent: tenderness, pedal edema, joint swelling, calf tenderness Back exam: Present: normal inspection Neurological exam: Present: alert, oriented X3, CN II-XII intact Psychiatric exam: Present: normal affect, normal mood Skin exam: Present: warm, dry, intact, normal color. Absent: rash Stroke MDM - Lab Data Result diagrams: 10/18/16 16:55 10/18/16 16:55 Lab Results 10/18/16 10/18/16 10/18/16 Range/Units 16:55 16:55 16:55 WBC 8.6 (3.8-10.6) k/uL RBC 4.48 (3.80-5.40) m/uL Hgb 14.2 (11.4-16.0) gm/dL Hct 41.1 (34.0-46.0) % MCV 91.6 (80.0-100.0) fL MCH 31.6 (25.0-35.0) pg MCHC 34.6 (31.0-37.0) g/dL RDW 13.2 (11.5-15.5) % Plt Count 336 (150-450) k/uL Neutrophils % 77 % Lymphocytes % 17 % Monocytes % 4 % Eosinophils % 1 % Basophils % 1 % Neutrophils # 6.6 (1.3-7.7) k/uL Lymphocytes # 1.5 (1.0-4.8) k/uL Monocytes # 0.3 (0-1.0) k/uL Eosinophils # 0.1 (0-0.7) k/uL Basophils # 0.1 (0-0.2) k/uL PT (9.0-12.0) sec INR (<1.2) APTT (22.0-30.0) sec Sodium 139 (137-145) mmol/L Potassium 3.9 (3.5-5.1) mmol/L Chloride 104 (98-107) mmol/L Carbon Dioxide 24 (22-30) mmol/L Anion Gap 11 mmol/L BUN 11 (7-17) mg/dL Creatinine 0.80 (0.52-1.04) mg/dL Est GFR (MDRD) Af Amer >60 (>60 ml/min/1.73 sqM) Est GFR (MDRD) Non-Af >60 (>60 ml/min/1.73 sqM) Glucose 104 H (74-99) mg/dL Calcium 9.6 (8.4-10.2) mg/dL Magnesium 1.9 (1.6-2.3) mg/dL Total Bilirubin 0.7 (0.2-1.3) mg/dL AST 23 (14-36) U/L ALT 32 (9-52) U/L Alkaline Phosphatase 120 (38-126) U/L Total Creatine Kinase 55 (30-135) U/L CK-MB (CK-2) 0.4 (0.0-2.4) ng/mL CK-MB (CK-2) Rel Index 0.7 Troponin I <0.012 (0.000-0.034) ng/mL Total Protein 7.1 (6.3-8.2) g/dL Albumin 4.6 (3.5-5.0) g/dL Urine Color Urine Appearance (Clear) Urine pH (5.0-8.0) Ur Specific [place] (1.001-1.035) Urine Protein (Negative) Urine Glucose (UA) (Negative) Urine Ketones (Negative) Urine Blood (Negative) Urine Nitrite (Negative) Urine Bilirubin (Negative) Urine Urobilinogen (<2.0) mg/dL Ur Leukocyte Esterase (Negative) 10/18/16 10/18/16 Range/Units 16:55 16:55 WBC (3.8-10.6) k/uL RBC (3.80-5.40) m/uL Hgb (11.4-16.0) gm/dL Hct (34.0-46.0) % MCV (80.0-100.0) fL MCH (25.0-35.0) pg MCHC (31.0-37.0) g/dL RDW (11.5-15.5) % Plt Count (150-450) k/uL Neutrophils % % Lymphocytes % % Monocytes % % Eosinophils % % Basophils % % Neutrophils # (1.3-7.7) k/uL Lymphocytes # (1.0-4.8) k/uL Monocytes # (0-1.0) k/uL Eosinophils # (0-0.7) k/uL Basophils # (0-0.2) k/uL PT 10.0 (9.0-12.0) sec INR 1.0 (<1.2) APTT 24.0 (22.0-30.0) sec Sodium (137-145) mmol/L Potassium (3.5-5.1) mmol/L Chloride (98-107) mmol/L Carbon Dioxide (22-30) mmol/L Anion Gap mmol/L BUN (7-17) mg/dL Creatinine (0.52-1.04) mg/dL Est GFR (MDRD) Af Amer (>60 ml/min/1.73 sqM) Est GFR (MDRD) Non-Af (>60 ml/min/1.73 sqM) Glucose (74-99) mg/dL Calcium (8.4-10.2) mg/dL Magnesium (1.6-2.3) mg/dL Total Bilirubin (0.2-1.3) mg/dL AST (14-36) U/L ALT (9-52) U/L Alkaline Phosphatase (38-126) U/L Total Creatine Kinase (30-135) U/L CK-MB (CK-2) (0.0-2.4) ng/mL CK-MB (CK-2) Rel Index Troponin I (0.000-0.034) ng/mL Total Protein (6.3-8.2) g/dL Albumin (3.5-5.0) g/dL Urine Color Colorless Urine Appearance Clear (Clear) Urine pH 5.0 (5.0-8.0) Ur Specific [place] 1.002 (1.001-1.035) Urine Protein Negative (Negative) Urine Glucose (UA) Negative (Negative) Urine Ketones Negative (Negative) Urine Blood Negative (Negative) Urine Nitrite Negative (Negative) Urine Bilirubin Negative (Negative) Urine Urobilinogen <2.0 (<2.0) mg/dL Ur Leukocyte Esterase Negative (Negative) - NIH Stroke Scale 1a. Level of Consciousness: (0) alert 1b. LOC Questions: (0) answers correctly 1c. LOC Commands: (0) performs tasks correctly 2. Best Gaze: (0) normal 3. Visual: (0) no visual loss 4. Facial Palsy: (0) normal symmetrical movement 5a. Motor Arm Left: (0) no drift 5b. Motor Arm Right: (0) no drift 6a. Motor Leg Left: (0) no drift 6b. Motor Leg Right: (0) no drift 7. Limb Ataxia: (0) absent 8. Sensory: (0) normal 9. Best Language: (0) no aphasia 10. Dysarthria: (0) normal 11. Extinction/Inattention: (0) no abnormality - Medical Decision Making Review the imaging shows no acute findings. I did discuss the findings with the patient and with Dr. Miner. Patient will be admitted for inpatient evaluation. Dr. Smith on-call this week and will be consulted. I did discuss the case with Christiane who is covering Dr. Dwyer. - EKG Data -: EKG Interpreted by Me EKG shows normal: sinus rhythm (Sinus rhythm a 69. Interval 140 QRS duration 70 QT since QTC of 46/[address]-T wave configuration.) Past Medical History Past Medical History: CVA/TIA, Fibromyalgia, GERD/Reflux, Hyperlipidemia, Hypertension, Musculoskeletal Disorder, Pneumonia, Sleep Apnea/CPAP/BIPAP Additional Past Medical History / Comment(s): NO CPAP, HX OF MS, STATES HAS HAD RECENT VERTIGO AND HAS HAD FALLS, RESTLESS LEG, SLIGHT LEFT SIDED WEAKNESS FROM TIA History of Any Multi-Drug Resistant Organisms: None Reported Past Surgical History: Appendectomy, Bowel Resection, Cholecystectomy, Hysterectomy, Orthopedic Surgery Additional Past Surgical History / Comment(s): BREAST BIOPSY/CARPAL TUNNEL BILT. /RT WRIST SURG/BONE SPUR REMOVED FROM PELVIS/SURG FOR ACID REFLUX/ HEMORRHOIDECTOMY/THELMA CATARACTS Past Anesthesia/Blood Transfusion Reactions: No Reported Reaction Past Psychological History: No Psychological Hx Reported Smoking Status: Never smoker Past Alcohol Use History: Rare Past Drug Use History: None Reported - Past Family History Father Additional Family Medical History / Comment(s): at age 30 Sister(s) Family Medical History: Cancer Additional Family Medical History / Comment(s): BREAST Mother Family Medical History: COPD, Diabetes Mellitus, Renal Disease Course Vital Signs 10/18/16 10/18/16 10/18/16 16:26 17:23 18:26 Temperature 98.0 F Pulse Rate 79 70 78 Respiratory 20 18 18 Rate Blood Pressure 183/93 134/88 127/78 O2 Sat by Pulse 98 96 95 Oximetry - Reevaluation(s) Reevaluation #1: 10/18/16 19:27 The patient currently is not on aspirin she was on Plavix but does not have any she's not been taken for a while after discussion with Dr. Mueller patient be started on low-dose aspirin. Disposition Clinical Impression: Transient cerebral ischemia Disposition: ADMITTED IP TO THIS HOSP Condition: Stable Referrals: Omid Hunter DO [Primary Care Provider] - 1-2 days Decision Time: 18:50
[2016-10-18] MEDS ORDERED: KETOROLAC 30 MG/ML 1 ML VIAL IVP STA (16:58)
[2016-10-18 17:10] LABS: Appearance,Urine Clear (Clear); Bilirubin,Urine Negative (Negative); Glucose,Urine (UA) Negative (Negative); Ketones,Urine Negative (Negative); Leukocyte Esterase,Urine Negative (Negative); Nitrite,Urine Negative (Negative); Protein,Urine Negative (Negative); Specific Gravity,Urine 1.002 (1.001-1.035); UA Billing (MACRO vs. MICRO) CHEM; Urobilinogen,Urine <2.0 mg/dL (<2.0)
[2016-10-18 17:11] LABS: Basophils # (A) 0.1 k/uL (0-0.2); Basophils % (A) 1 %; CH 31.6; CHCM 34.7; Eosinophils # (A) 0.1 k/uL (0-0.7); Eosinophils % (A) 1 %; HCT 41.1 % (34.0-46.0); HGB 14.2 gm/dL (11.4-16.0); Luc # (Auto) 0.11; Luc % (Auto) 1; Lymphocytes # (A) 1.5 k/uL (1.0-4.8); Lymphocytes % (A) 17 %; MCH 31.6 pg (25.0-35.0); MCHC 34.6 g/dL (31.0-37.0); MCV 91.6 fL (80.0-100.0); Monocytes # (A) 0.3 k/uL (0-1.0); Monocytes % (A) 4 %; Neutrophils # (A) 6.6 k/uL (1.3-7.7); Neutrophils % (A) 77 %; RBC 4.48 m/uL (3.80-5.40); RDW 13.2 % (11.5-15.5); WBC 8.6 k/uL (3.8-10.6); WBC (Perox) 8.76
--- NOTE | 2016-10-18 17:27 | CT ---
EXAMINATION TYPE: CT brain wo con DATE OF EXAM: 10/18/2016 COMPARISON: 07/05/2014 HISTORY: Patient complains of left side facial numbness and pressure headache. CT DLP: 1103 mGycm Automated exposure control for dose reduction was used. FINDINGS: Ventricles have normal size. There is no mass effect nor midline shift. There is no sign of intracran ial hemorrhage. The calvarium is intact. IMPRESSION: NEGATIVE CT SCAN OF THE BRAIN. NO CHANGE.
[2016-10-18 17:30] LABS: ALT 32 U/L (9-52); AST 23 U/L (14-36); Alkaline Phosphatase 120 U/L (38-126); Anion Gap 11 mmol/L; Blood Urea Nitrogen 11 mg/dL (7-17); Calcium 9.6 mg/dL (8.4-10.2); Carbon Dioxide 24 mmol/L (22-30); Chloride 104 mmol/L (98-107); Glucose 104 mg/dL (74-99); Magnesium 1.9 mg/dL (1.6-2.3); Non-African American GFR(MDRD) >60 (>60 ml/min/1.73 sqM); Potassium 3.9 mmol/L (3.5-5.1); Sodium 139 mmol/L (137-145); Total Bilirubin 0.7 mg/dL (0.2-1.3); Total Protein 7.1 g/dL (6.3-8.2)
[2016-10-18 17:33] LABS: Creatine Kinase 55 U/L (30-135)
[2016-10-18 17:45] LABS: Creatine Kinase MB 0.4 ng/mL (0.0-2.4); Troponin I <0.012 ng/mL (0.000-0.034)
--- NOTE | 2016-10-18 17:54 | XR ---
EXAMINATION TYPE: XR chest 2V DATE OF EXAM: 10/18/2016 COMPARISON: 10/25/2015 HISTORY: Facial numbness TECHNIQUE: Frontal and lateral views of the chest are obtained. FINDINGS: Heart and mediastinum are normal. Lungs are clear. There is mild spurring in the thoracic spine. Diaphragm is normal. There are clips from cholecystectomy. IMPRESSION: No active cardiopulmonary disease. No change.
[2016-10-18] MEDS ORDERED: ASPIRIN 81 MG CHEW PO STA (19:31)
[2016-10-18] MEDS ORDERED: PERAMPANEL 8 MG PO SCH (21:00)
[2016-10-18] MEDS: CYANOCOBALAMIN 500 MCG TAB PO SCH (22:05)
[2016-10-18] MEDS: SODIUM CHLORIDE 0.9% 1,000 ML IV SCH (22:05)
[2016-10-18] MEDS: FAMOTIDINE 20 MG TAB PO SCH (22:05)
[2016-10-18] MEDS: PREGABALIN 100 MG CAP PO SCH (22:07)
[2016-10-19] MEDS: PANTOPRAZOLE 40 MG TABLET PO SCH (06:42)
[2016-10-19 06:58] LABS: Cholesterol 200 mg/dL (<200); HDL Cholesterol 66 mg/dL (40-60)
--- NOTE | 2016-10-19 08:52 | US ---
EXAMINATION TYPE: US carotid duplex BILAT DATE OF EXAM: 10/19/2016 COMPARISON: CT Brain 2017 CLINICAL HISTORY: Stenosis. Patient stated has dizziness and left facial numbness. EXAM MEASUREMENTS: RIGHT: Peak Systolic Velocity (PSV) cm/sec ----- Right CCA: 75.4 ----- Right ICA: 91.4 ----- Right ECA: 88.8 ICA/CCA ratio: 1.2 RIGHT: End Diastole cm/sec ----- Right CCA: 26.0 ----- Right ICA: 35.7 ----- Right ECA: 11.1 LEFT: Peak Systolic Velocity (PSV) cm/sec ----- Left CCA: 78.9 ----- Left ICA: 78.9 ----- Left ECA: 64.4 ICA/CCA ratio: 1.0 LEFT: End Diastole cm/sec ----- Left CCA: 27.2 ----- Left ICA: 41.1 ----- Left ECA: 17.1 . VERTEBRALS (direction of flow): Right Vertebral: Antegrade Left Vertebral: Antegrade Very mild intimal thickening is noted at bilateral carotid bifurcation and PSV is wnl bilaterally. In cidental finding of thyroid nodules is noted bilaterally: right thyroid nodule = 1.3 x 1.1 x 0.8cm a nd larger left thyroid nodule = 1.7 x 1.2 x 1.1cm IMPRESSION: There is antegrade flow in the vertebral arteries. The images and measurements suggest 0 -50% stenosis in both internal carotid arteries and closer to 25%. Incidental bilateral thyroid nodules consistent with benign disease. Criteria for Assigning % of Stenosis / Diameter reduction (Estimation based on the indirect measurements of the internal carotid artery velocities (ICA PSV). 1. Normal (no stenosis)=ICA PSV < 125 cm/s: ratio < 2.0: ICA EDV<40 cm/s. 2. Less than 50% stenosis=ICA PSV < 125 cm/s: ratio < 2.0: ICA EDV<40 cm/s. 3. 50 to 69% stenosis=ICA PSV of 125 to 230 cm/s: ration 2.0 ? 4.0: ICA EDV 40-100 cm/s. 4. Greater than 70% stenosis to near occlusion= ICA PSV > 230 cm/s: ratio > 4.0: ICA EDV > 100 cm/s. 5. Near occlusion= ICA PSV velocities may be low or undetectable: variable ratio and ICA EDV. 6. Total occlusion=unable to detect flow.
[2016-10-19] MEDS: ATORVASTATIN 20 MG TAB PO SCH (09:24)
[2016-10-19] MEDS: ASPIRIN 81 MG CHEW PO SCH (09:24)
[2016-10-19] MEDS: FAMOTIDINE 20 MG TAB PO SCH ×2 (09:24→22:15)
[2016-10-19] MEDS: CYANOCOBALAMIN 500 MCG TAB PO SCH ×2 (09:25→22:16)
[2016-10-19] MEDS: PREGABALIN 100 MG CAP PO SCH ×3 (09:27→22:15)
--- NOTE | 2016-10-19 09:31 | P.HPIM ---
History of Present Illness H&P Date: 10/19/16 Chief Complaint: Left-sided facial numbness and blurry vision This is a 66-year-old female with history of TIAs, multiple sclerosis comes in to the hospital with the sudden onset left-sided facial numbness. Patient states that she has also noted blurry vision onset was around 4 PM on the day of admission Patient underwent a computed tomography scan of the head without any acute abnormalities Due to patient's MS exacerbations patient was brought in to the hospital as recommended by Dr. Miner At this time patient continues to state that she has numbness across left side of her face from the midline down into her neck no weakness is reported Patient does state to have a diffuse headache and bilateral blurry vision Patient has had multiple ms exacerbations, according to her. EKG did not reveal any atrial fibrillation A carotid study was done which did not reveal any critical stenosis of her internal carotid arteries No overnight events on telemetry. Review of Systems All systems: negative (Noted in HPI) Past Medical History Past Medical History: CVA/TIA, Fibromyalgia, GERD/Reflux, Hyperlipidemia, Hypertension, Musculoskeletal Disorder, Pneumonia, Sleep Apnea/CPAP/BIPAP Additional Past Medical History / Comment(s): NO CPAP, HX OF MS, STATES HAS HAD RECENT VERTIGO AND HAS HAD FALLS, RESTLESS LEG, SLIGHT LEFT SIDED WEAKNESS FROM TIA History of Any Multi-Drug Resistant Organisms: None Reported Past Surgical History: Appendectomy, Bowel Resection, Cholecystectomy, Hysterectomy, Orthopedic Surgery Additional Past Surgical History / Comment(s): RIGHT BREAST BIOPSY/CARPAL TUNNEL BILT./RT WRIST SURG/BONE SPUR REMOVED FROM PELVIS/SURG FOR ACID REFLUX/ HEMORRHOIDECTOMY/THELMA CATARACTS Past Anesthesia/Blood Transfusion Reactions: No Reported Reaction Past Psychological History: No Psychological Hx Reported Smoking Status: Never smoker Past Alcohol Use History: Rare Past Drug Use History: None Reported - Past Family History Father Additional Family Medical History / Comment(s): at age 30- drowning Sister(s) Family Medical History: Cancer Additional Family Medical History / Comment(s): BREAST Mother Family Medical History: COPD, Diabetes Mellitus, Renal Disease Medications and Allergies Home Medications Medication Instructions Recorded Confirmed Type Atorvastatin [Lipitor] 20 mg PO QAM 06/13/14 10/18/16 History Famotidine [Pepcid] 20 mg PO BID 06/13/14 10/18/16 History Lansoprazole 30 mg PO QAM 06/13/14 10/18/16 History Pregabalin [Lyrica] 100 mg PO TID 05/29/15 10/18/16 History rOPINIRole HCL [Requip] 0.5 mg PO HS 04/26/16 10/18/16 History Celecoxib [CeleBREX] 200 mg PO HS 04/30/16 10/18/16 History Perampanel [Fycompa] 8 mg PO HS 04/30/16 10/18/16 History Cyanocobalamin (Vitamin B-12) 1,000 mcg PO BID 10/18/16 10/18/16 History [Vitamin B-12] Primidone [Mysoline] 25 mg PO W/SUPPER 10/18/16 10/18/16 History oxyCODONE HCL [Roxicodone] 15 mg PO TID PRN 10/18/16 10/18/16 History Allergies Allergy/AdvReac Type Severity Reaction Status Date / Time No Known Allergies Allergy Verified 10/18/16 16:30 Physical Exam Vitals: Vital Signs Temp Pulse Pulse Resp BP BP Pulse Ox 10/19/16 04:00 96.2 F L 64 18 108/72 97 10/19/16 00:00 97.5 F L 63 18 110/74 93 L 10/18/16 21:25 97.1 F L 80 18 144/93 98 10/18/16 20:09 97.9 F 68 16 118/69 99 10/18/16 18:26 78 18 127/78 95 10/18/16 17:23 70 18 134/88 96 10/18/16 16:26 98.0 F 79 20 183/93 98 Intake and Output 10/18/16 10/19/16 10/19/16 22:59 06:59 14:59 Intake Total 600 Output Total 100 300 Balance -100 300 Intake: Oral 600 Output: Urine 100 300 Other: Voiding Method Toilet Toilet Weight 69.8 kg 69.8 kg Physical exam Gen. appearance oriented 3 in no distress Neck is supple no JVD Lungs good air entry clear to auscultation no rhonchi or wheezing Heart S1-S2 heard regular rate and rhythm no murmurs appreciated Abdomen is soft nontender no organomegaly bowel sounds are intact Neurologically cranial nerves II-12 grossly intact no focal motor or sensory deficits noted. Is not able to discriminate fine touch on the left side of the face which is different from the right side Extraocular movements are intact pupils equal round reactive light and accommodation Strength is 5 out of 5 in all 4 extremities. Skin no abnormalities appreciated Results CBC & Chem 7: 10/18/16 16:55 10/18/16 16:55 Labs: Abnormal Lab Results - Last 24 Hours (Table) 10/18/16 10/19/16 Range/Units 16:55 05:40 Glucose 104 H (74-99) mg/dL Cholesterol 200 H (<200) mg/dL LDL Cholesterol, Calc 121 H (0-99) mg/dL HDL Cholesterol 66 H (40-60) mg/dL Thrombosis Risk Factor Assmnt - Choose All That Apply Any of the Below Risk Factors Present?: No Other Risk Factors: Yes Each Risk Factor Represents 2 Points: Age 61-74 years Thrombosis Risk Factor Assessment Total Risk Factor Score: 2 Thrombosis Risk Factor Assessment Level: Low Risk Assessment and Plan Plan: #1 left-sided facial numbness suspect an acute exacerbation of multiple sclerosis #2 history of TIAs #3 essential hypertension #4 restless leg syndrome #5 dyslipidemia #6 chronic low back pain #7 acute headache #8 peripheral neuropathy Plan We'll start the patient on a new stress dose of steroids. We will obtain MRI this will be done on an emergent basis will have our on-call neurologist evaluate the patient as well GI prophylaxis for steroids Continue telemetry monitoring patient is already on an antiplatelet agent and statin Frequent neuro checks
--- NOTE | 2016-10-19 15:39 | MR ---
EXAMINATION TYPE: MR brain wo/w con DATE OF EXAM: 10/19/2016 COMPARISON: February 01, 2015 HISTORY: ms exac? TECHNIQUE: Multiplanar, multisequence images of the brain and brainstem is performed without and with IV contras t, utilizing 13 mL intravenous MultiHance . FINDINGS: There are scattered foci of increased signal at the fried-white matter junction of both cerebral hemis pheres. Total numbers less than 10. I see no pathologic enhancement. Optic chiasm appears normal. Nicolasa [place] turcica is normal. These measure mostly less than 5 mm. There is no mass effect nor midline shift. There is no evidence of intracranial hemorrhage. There is no evidence of cortical infarct. Brainstem appears intact. Cerebellum appears normal. IMPRESSION: Multiple small white matter lesions as above. I would consider both demyelinating disease and small vessel ischemia. There is no change compared to old exam. I see no new white matter lesion .
[2016-10-19] MEDS: PRIMIDONE 25 MG TAB PO SCH (17:08)
--- NOTE | 2016-10-19 23:00 | P.CNNES ---
History of Present Illness Consult date: 10/19/16 History of Present Illness: The patient is a 66-year-old woman who has a history of MS who has been complaining of headache for the last 4 days. On Friday she went to her doctor' s office and received some treatment for her headache but she experienced some fluctuating blood pressures and some left facial numbness. This also grew to involve her left arm as well. She was brought to the hospital with these symptoms. She described the headache as a pressure sensation. She has some some headaches still. She states that her MS was diagnosed in 2014 and she's been on Copaxone. She's been stable as far as her MS goes. She does complain of right hip pain and some walking disturbance on the right leg due to the pain. She continues to have some facial numbness along the left side. The patient is admitted to the hospital with possible TIA. He had an MRI which showed white matter lesions consistent with possible small vessel ischemia versus demyelinating disease. There was no change compared to 2015. She had a carotid ultrasound showed thyroid nodules but no significant stenosis of the carotids is a history of prior TIA but has not been taking aspirin. Review of Systems Constitutional: Denies chills, Denies fever Eyes: denies blurred vision, denies pain Ears, nose, mouth and throat: Denies headache, Denies sore throat Cardiovascular: Denies chest pain, Denies shortness of breath Respiratory: Denies cough Neurological: Denies numbness, Denies weakness Psychiatric: Denies anxiety, Denies depression Past Medical History Past Medical History: CVA/TIA, Fibromyalgia, GERD/Reflux, Hyperlipidemia, Hypertension, Musculoskeletal Disorder, Pneumonia, Sleep Apnea/CPAP/BIPAP Additional Past Medical History / Comment(s): NO CPAP, HX OF MS, STATES HAS HAD RECENT VERTIGO AND HAS HAD FALLS, RESTLESS LEG, SLIGHT LEFT SIDED WEAKNESS FROM TIA History of Any Multi-Drug Resistant Organisms: None Reported Past Surgical History: Appendectomy, Bowel Resection, Cholecystectomy, Hysterectomy, Orthopedic Surgery Additional Past Surgical History / Comment(s): RIGHT BREAST BIOPSY/CARPAL TUNNEL BILT./RT WRIST SURG/BONE SPUR REMOVED FROM PELVIS/SURG FOR ACID REFLUX/ HEMORRHOIDECTOMY/THELMA CATARACTS Past Anesthesia/Blood Transfusion Reactions: No Reported Reaction Past Psychological History: No Psychological Hx Reported Smoking Status: Never smoker Past Alcohol Use History: Rare Past Drug Use History: None Reported - Past Family History Father Additional Family Medical History / Comment(s): at age 30- drowning Sister(s) Family Medical History: Cancer Additional Family Medical History / Comment(s): BREAST Mother Family Medical History: COPD, Diabetes Mellitus, Renal Disease Medications and Allergies Home Medications Medication Instructions Recorded Confirmed Type Atorvastatin [Lipitor] 20 mg PO QAM 06/13/14 10/18/16 History Famotidine [Pepcid] 20 mg PO BID 06/13/14 10/18/16 History Lansoprazole 30 mg PO QAM 06/13/14 10/18/16 History Pregabalin [Lyrica] 100 mg PO TID 05/29/15 10/18/16 History rOPINIRole HCL [Requip] 0.5 mg PO HS 04/26/16 10/18/16 History Celecoxib [CeleBREX] 200 mg PO HS 04/30/16 10/18/16 History Perampanel [Fycompa] 8 mg PO HS 04/30/16 10/18/16 History Cyanocobalamin (Vitamin B-12) 1,000 mcg PO BID 10/18/16 10/18/16 History [Vitamin B-12] Primidone [Mysoline] 25 mg PO W/SUPPER 10/18/16 10/18/16 History oxyCODONE HCL [Roxicodone] 15 mg PO TID PRN 10/18/16 10/18/16 History Allergies Allergy/AdvReac Type Severity Reaction Status Date / Time No Known Allergies Allergy Verified 10/18/16 16:30 Physical Examination - Vital Signs Vital Signs: Vital Signs Temp Pulse Resp BP Pulse Ox 10/19/16 15:23 96.8 F L 68 16 108/68 95 10/19/16 12:13 95 10/19/16 11:55 97.2 F L 74 16 112/69 95 10/19/16 08:00 97.3 F L 93 16 111/75 93 L 10/19/16 04:00 96.2 F L 64 18 108/72 97 10/19/16 00:00 97.5 F L 63 18 110/74 93 L Intake and Output 10/19/16 10/19/16 10/19/16 06:59 14:59 22:59 Intake Total 600 Output Total 300 800 Balance 300 -800 Intake: Oral 600 Output: Urine 300 800 Other: Voiding Method Toilet # Voids 2 Weight 69.8 kg - Constitutional General appearance: average body habitus - EENT EENT: PERRL, hearing intact - Respiratory Respiratory: lungs clear, normal breath sounds - Cardiovascular Cardiovascular: regular rate, normal S1, normal S2 - Integumentary Integumentary: normal - Neurologic Cranial nerve examination: PERRL, EOMI, VFF, V1/V2/V3 grossly intact, face symmetric, tongue midline Speech examination: intact Detailed motor examination: other (She had good strength throughout except for right lower extremity which is 4/5 in) Detailed sensory examination: other (She had some decreased light touch left arm ) Reflex and gait examination: antalgic gate Reflexes: 3+: knee - Psychiatric Psychiatric: mood/affect appropriate Results - Laboratory Findings CBC and BMP: 10/18/16 16:55 10/18/16 16:55 Abnormal Lab Findings: Abnormal Labs 10/18/16 10/19/16 16:55 05:40 Glucose 104 H Cholesterol 200 H LDL Cholesterol, Calc 121 H HDL Cholesterol 66 H Assessment and Plan (1) Transient cerebral ischemia Status: Acute Code(s): G45.9 - TRANSIENT CEREBRAL ISCHEMIC ATTACK, UNSPECIFIED (2) History of multiple sclerosis Status: Chronic Code(s): Z86.69 - PERSONAL HISTORY OF DIS OF THE NERVOUS SYS AND SENSE ORGANS (3) Right hip pain Status: Chronic Code(s): M25.551 - PAIN IN RIGHT HIP Plan: The patient is a 66-year-old woman with history of previous TIA who presented to the hospital with left face and arm numbness. She had no other new neurologic deficit. She is admitted to the hospital with TIA. She has had a carotid ultrasound which did not show any significant stenosis. Recommend echocardiogram. Recommend start patient on aspirin therapy daily. Patient also has a history of MS but this does not appear to be an exacerbation of MS. Can discontinue steroids after 24 hours . The patient had an MRI of the brain which not show any acute findings., The there was white matter changes which are remained stable
--- NOTE | 2016-10-20 08:02 | XR ---
2 view right hip INDICATION: Pain Technique: Right hip is examined in 2 views FINDINGS: Femoral head articulate with the acetabulum. No acute fractures are evident. IMPRESSIONS: 1. Normal 2 view right hip
[2016-10-20] MEDS: FAMOTIDINE 20 MG TAB PO SCH ×2 (08:04→20:31)
[2016-10-20] MEDS: SODIUM CHLORIDE 0.9% 1,000 ML IV SCH ×2 (08:27→20:21)
[2016-10-20] MEDS: PANTOPRAZOLE 40 MG TABLET PO SCH (08:27)
[2016-10-20] MEDS: ASPIRIN 81 MG CHEW PO SCH (08:34)
[2016-10-20] MEDS: PREGABALIN 100 MG CAP PO SCH ×3 (08:34→20:30)
[2016-10-20] MEDS: ATORVASTATIN 20 MG TAB PO SCH (08:34)
[2016-10-20] MEDS: CYANOCOBALAMIN 500 MCG TAB PO SCH ×2 (08:34→20:31)
--- NOTE | 2016-10-20 16:09 | P.PN ---
Subjective This is a 66-year-old female with history of TIAs, multiple sclerosis comes in to the hospital with the sudden onset left-sided facial numbness. Patient states that she has also noted blurry vision onset was around 4 PM on the day of admission Patient underwent a computed tomography scan of the head without any acute abnormalities Due to patient's MS exacerbations patient was brought in to the hospital as recommended by Dr. Miner At this time patient continues to state that she has numbness across left side of her face from the midline down into her neck no weakness is reported Patient does state to have a diffuse headache and bilateral blurry vision Patient has had multiple ms exacerbations, according to her. EKG did not reveal any atrial fibrillation A carotid study was done which did not reveal any critical stenosis of her internal carotid arteries No overnight events on telemetry. 10/20/2016 Patient continues to complain of intermittent episodes of dizziness. And continues to have episodes of blurry vision By occipital headaches or reported States that her previous episode was treated as an exacerbation Physical exam Gen. appearance oriented 3 in no distress Neck is supple no JVD Lungs good air entry clear to auscultation no rhonchi or wheezing Heart S1-S2 heard regular rate and rhythm no murmurs appreciated Abdomen is soft nontender no organomegaly bowel sounds are intact Neurologically cranial nerves II-12 grossly intact no focal motor or sensory deficits noted. Is not able to discriminate fine touch on the left side of the face which is different from the right side Extraocular movements are intact pupils equal round reactive light and accommodation Strength is 5 out of 5 in all 4 extremities. Skin no abnormalities appreciated Objective - Vital Signs Vital signs: Vital Signs Temp 98.1 F 10/20/16 15:14 Pulse 90 10/20/16 15:14 Resp 18 10/20/16 15:14 BP 121/64 10/20/16 15:14 Pulse Ox 93 L 10/20/16 15:14 Intake & Output 10/19/16 10/20/16 10/20/16 18:59 06:59 18:59 Intake Total 800 Output Total 800 Balance -800 800 Weight 81.7 kg Intake: Intake, IV Titration 100 Amount methylPREDNISolone SOD 100 SUCC 500 mg In Sodium Chloride 0.9% 100 ml @ 100 mls/hr IVPB Q12HR ÁNGEL Rx#:[id number] Oral 700 Output: Urine 800 Other: Voiding Method Toilet # Voids 2 2 - Labs CBC & Chem 7: 10/18/16 16:55 10/18/16 16:55 Assessment and Plan Plan: #1 left-sided facial numbness suspect an acute exacerbation of multiple sclerosis #2 history of TIAs #3 essential hypertension #4 restless leg syndrome #5 dyslipidemia #6 chronic low back pain #7 acute headache #8 peripheral neuropathy Plan My of the brain and also some demyelinating lesions No new lesions are noted Patient states that she is dizzy and continues to change in vision will complete a 3 day burst of neuro stress dose steroids at this time GI prophylaxis for steroids Continue telemetry monitoring patient is already on an antiplatelet agent and statin Frequent neuro checks
[2016-10-20] MEDS: PRIMIDONE 25 MG TAB PO SCH (16:33)
[2016-10-21] MEDS: PANTOPRAZOLE 40 MG TABLET PO SCH (06:33)
[2016-10-21] MEDS: PREGABALIN 100 MG CAP PO SCH ×2 (08:11→16:15)
[2016-10-21] MEDS: CYANOCOBALAMIN 500 MCG TAB PO SCH (08:11)
[2016-10-21] MEDS: FAMOTIDINE 20 MG TAB PO SCH (08:11)
[2016-10-21] MEDS: ASPIRIN 81 MG CHEW PO SCH (08:11)
[2016-10-21] MEDS: ATORVASTATIN 20 MG TAB PO SCH (08:11)
[2016-10-21] MEDS ORDERED: ACETAMINOPHEN TAB 325 MG TAB PO PRN (08:20)
[2016-10-21 10:10] VITALS: RESP 18
[2016-10-21] MEDS ORDERED: HYDROmorphone 2 MG/ML 1 ML SYRINGE IVP STA (11:26)
[2016-10-21 14:13] VITALS: BP 141/80; PULSE 68; TEMP 98
--- NOTE | 2016-10-21 15:14 | P.DS ---
Providers Date of admission: 10/18/16 19:28 Attending physician: Waqas Dwyer MD Consults: 10/18/16 19:29 Consult Physician Routine Consulting Provider: Odalys Castro Consult Reason/Comments: TIA, left facial numbness Do you want consulting provider notified?: Yes Primary care physician: [facility] Course: This is a 66-year-old female with history of TIAs, multiple sclerosis comes in to the hospital with the sudden onset left-sided facial numbness. Patient states that she has also noted blurry vision onset was around 4 PM on the day of admission Patient underwent a computed tomography scan of the head without any acute abnormalities Due to patient's MS exacerbations patient was brought in to the hospital as recommended by Dr. Miner At this time patient continues to state that she has numbness across left side of her face from the midline down into her neck no weakness is reported Patient does state to have a diffuse headache and bilateral blurry vision Patient has had multiple ms exacerbations, according to her. EKG did not reveal any atrial fibrillation A carotid study was done which did not reveal any critical stenosis of her internal carotid arteries No overnight events on telemetry. 10/20/2016 Patient continues to complain of intermittent episodes of dizziness. And continues to have episodes of blurry vision By occipital headaches or reported States that her previous episode was treated as an exacerbation Physical exam Gen. appearance oriented 3 in no distress Neck is supple no JVD Lungs good air entry clear to auscultation no rhonchi or wheezing Heart S1-S2 heard regular rate and rhythm no murmurs appreciated Abdomen is soft nontender no organomegaly bowel sounds are intact Neurologically cranial nerves II-12 grossly intact no focal motor or sensory deficits noted. Is not able to discriminate fine touch on the left side of the face which is different from the right side Extraocular movements are intact pupils equal round reactive light and accommodation Strength is 5 out of 5 in all 4 extremities. Skin no abnormalities appreciated Assessment and Plan Plan: #1 left-sided facial numbness suspect an acute exacerbation of multiple sclerosis #2 history of TIAs #3 essential hypertension #4 restless leg syndrome #5 dyslipidemia #6 chronic low back pain #7 acute headache #8 peripheral neuropathy 3 days of stress dose steroids with 1 g of Solu-Medrol per day was given Patient will be discharged to follow-up with her neurologist in the next day or 2. Patient was having persistent headaches will be given 2 mg of IV Dilaudid most measures to treat her headaches were unsuccessful we'll defer to her neurologist for further treatment. Patient Condition at Discharge: Stable Plan - Discharge Summary New Discharge Prescriptions: Continue Famotidine [Pepcid] 20 mg PO BID Lansoprazole 30 mg PO QAM Atorvastatin [Lipitor] 20 mg PO QAM Pregabalin [Lyrica] 100 mg PO TID rOPINIRole HCL [Requip] 0.5 mg PO HS Celecoxib [CeleBREX] 200 mg PO HS Perampanel [Fycompa] 8 mg PO HS Primidone [Mysoline] 25 mg PO W/SUPPER oxyCODONE HCL [Roxicodone] 15 mg PO TID PRN PRN Reason: Pain Cyanocobalamin (Vitamin B-12) [Vitamin B-12] 1,000 mcg PO BID Discharge Medication List Atorvastatin [Lipitor] 20 mg PO QAM 06/13/14 [History] Famotidine [Pepcid] 20 mg PO BID 06/13/14 [History] Lansoprazole 30 mg PO QAM 06/13/14 [History] Pregabalin [Lyrica] 100 mg PO TID 05/29/15 [History] rOPINIRole HCL [Requip] 0.5 mg PO HS 04/26/16 [History] Celecoxib [CeleBREX] 200 mg PO HS 04/30/16 [History] Perampanel [Fycompa] 8 mg PO HS 04/30/16 [History] Cyanocobalamin (Vitamin B-12) [Vitamin B-12] 1,000 mcg PO BID 10/18/16 [History] Primidone [Mysoline] 25 mg PO W/SUPPER 10/18/16 [History] oxyCODONE HCL [Roxicodone] 15 mg PO TID PRN 10/18/16 [History] Follow up Appointment(s)/Referral(s): Radames Miner MD [STAFF PHYSICIAN] - 1 Week Omid Hunter DO [Primary Care Provider] - 1-2 days Patient Instructions/Handouts: Transient Ischemic Attack (DC), Multiple Sclerosis (DC) Discharge Disposition: HOME SELF-CARE
[2016-10-21] MEDS: PRIMIDONE 25 MG TAB PO SCH (16:16)
== END 2016-10-21 19:45 | disposition home or self-care (01) ==
LOC: EC 15:55 → 6SEL 19:28
PROVIDERS: ADMIT Internal Medicine; ATTEND Internal Medicine
DX: G45.9 Transient cerebral ischemic attack, unspecified (principal); M79.7 Fibromyalgia; E78.5 Hyperlipidemia, unspecified; G25.81 Restless legs syndrome; G35 Multiple sclerosis; G47.30 Sleep apnea, unspecified; K21.9 Gastro-esophageal reflux disease without esophagitis; I10 Essential (primary) hypertension; I69.954 Hemiplegia and hemiparesis following unspecified cerebrovascular disease affecting left non-dominant side; H53.8 Other visual disturbances; R20.0 Anesthesia of skin; G62.9 Polyneuropathy, unspecified; G89.29 Other chronic pain; M54.5 Low back pain; M25.551 Pain in right hip; E04.2 Nontoxic multinodular goiter; Z79.899 Other long term (current) drug therapy; Z99.89 Dependence on other enabling machines and devices
CPT/HCPCS: 96361 ×2; 96365; 96366 ×3; 96375 ×2; 99285; 36415; 94760 ×2; 93005; 97161; 97165; 80061; 80053; 82550; 82553; 83735; 84484; 85025; 85610; 85730; 81003; 71020; 73502; 93880; 70450; 70553; G0378 ×4; J1170; J2930 ×3; J1885; A9577

== ENCOUNTER → 2016-12-05 | Outpatient (CLI) | payer MEDICARE, OTHER ==
[2016-12-06 01:32] LABS: Hepatitis B Surface Antibody Non-Reactive (Non-Reactive)
== END | disposition home or self-care (01) ==
LOC: LABWHC1 16:01
PROVIDERS: ATTEND Psychiatry & Neurology Neurology
DX: Z01.812 Encounter for preprocedural laboratory examination (principal); G35 Multiple sclerosis
CPT/HCPCS: 36415; 82306; 82607; 84207; 86704; 86705; 86706; 87340

== ENCOUNTER → 2016-12-13 | Outpatient (CLI) | payer MEDICARE, OTHER | END | disposition home or self-care (01) | LOC: LABWHC1 10:56 | PROVIDERS: ATTEND Psychiatry & Neurology Neurology | DX: G35 Multiple sclerosis (principal) | CPT/HCPCS: 36415; 84207 ==

== ENCOUNTER → 2017-05-16 | Outpatient (CLI) | payer MEDICARE, OTHER ==
[2017-05-16 12:55] LABS: Basophils # (A) 0.1 k/uL (0-0.2); Basophils % (A) 1 %; Eosinophils # (A) 0.1 k/uL (0-0.7); Eosinophils % (A) 1 %; HCT 38.2 % (34.0-46.0); Lymphocytes # (A) 2.4 k/uL (1.0-4.8); Lymphocytes % (A) 25 %; MCH 31.4 pg (25.0-35.0); MCHC 34.1 g/dL (31.0-37.0); MCV 92.1 fL (80.0-100.0); Mean Platelet Volume 7.3; Monocytes # (A) 0.6 k/uL (0-1.0); Monocytes % (A) 6 %; Neutrophils # (A) 6.2 k/uL (1.3-7.7); Neutrophils % (A) 65 %; Platelet Count 314 k/uL (150-450); RBC 4.15 m/uL (3.80-5.40); RDW 13.3 % (11.5-15.5); WBC 9.5 k/uL (3.8-10.6)
== END | disposition home or self-care (01) ==
LOC: LABPAT 12:16
PROVIDERS: ATTEND Surgery
DX: Z01.818 Encounter for other preprocedural examination (principal); K43.2 Incisional hernia without obstruction or gangrene; D64.9 Anemia, unspecified; R94.31 Abnormal electrocardiogram [ECG] [EKG]; F17.200 Nicotine dependence, unspecified, uncomplicated; Z01.812 Encounter for preprocedural laboratory examination
CPT/HCPCS: 36415; 85025; 93005

== ENCOUNTER 2017-05-21 08:59 | Day surgery (SDC) | payer MEDICARE, OTHER ==
[2017-05-19 14:15] VITALS: BMI 29.5
[~2017-05-21 08:59] MED LIST changes: +HEPARIN SODIUM,PORCINE 5,000 UNIT/ML 1 ML VIAL SQ ONE; +HYDROmorphone 0.5 MG/0.5 ML SYRINGE IVP PRN; -LIDOCAINE 1% 20 ML VIAL (10MG/ML) FOR IV START INTRADERMA PRN; +ONDANSETRON 4 MG/2 ML VIAL IVP PRN; +ceFAZolin IN SWFI 2 GM/20 ML SYRINGE IVP ONE
[2017-05-21] MEDS ORDERED: LIDOCAINE 1% 20 ML VIAL (10MG/ML) FOR IV START INTRADERMA ONE (11:21)
--- NOTE | 2017-05-21 11:36 | P.GSHP ---
History of Present Illness H&P Date: 05/21/17 Chief Complaint: Incisional hernia This is a 67-year-old female who's developed an incisional hernia related to a previous low anterior section. Patient presents today for laparoscopic robotic assistance repair. Past Medical History Past Medical History: CVA/TIA, Fibromyalgia, GERD/Reflux, Hyperlipidemia, Hypertension, Musculoskeletal Disorder, Osteoarthritis (OA), Sleep Apnea/CPAP/ BIPAP Additional Past Medical History / Comment(s): NO CPAP, HX OF MS, RESTLESS LEG, TIA X2 History of Any Multi-Drug Resistant Organisms: None Reported Past Surgical History: Appendectomy, Bowel Resection, Cholecystectomy, Hysterectomy, Orthopedic Surgery Additional Past Surgical History / Comment(s): RIGHT BREAST BIOPSY/CARPAL TUNNEL BILT./RT WRIST SURG/BONE SPUR REMOVED FROM PELVIS/SURG FOR ACID REFLUX/ HEMORRHOIDECTOMY/THELMA CATARACTS WITH IMPLANTS Past Anesthesia/Blood Transfusion Reactions: No Reported Reaction Past Psychological History: No Psychological Hx Reported Smoking Status: Never smoker Past Alcohol Use History: Rare Past Drug Use History: None Reported - Past Family History Father Additional Family Medical History / Comment(s): at age 30- drowning Son(s) Family Medical History: Cancer Additional Family Medical History / Comment(s): MELENOMA Sister(s) Family Medical History: Cancer Additional Family Medical History / Comment(s): BREAST Mother Family Medical History: Diabetes Mellitus, Deep Vein Thrombosis (DVT) Medications and Allergies Home Medications Medication Instructions Recorded Confirmed Type Atorvastatin [Lipitor] 40 mg PO QAM 06/13/14 05/19/17 History Famotidine [Pepcid] 20 mg PO BID 06/13/14 05/19/17 History Lansoprazole 30 mg PO QAM 06/13/14 05/19/17 History Pregabalin [Lyrica] 100 mg PO TID 05/29/15 05/19/17 History rOPINIRole HCL [Requip] 0.5 mg PO HS 04/26/16 05/19/17 History Celecoxib [CeleBREX] 200 mg PO HS 04/30/16 05/19/17 History Perampanel [Fycompa] 8 mg PO HS 04/30/16 05/19/17 History Cyanocobalamin (Vitamin B-12) 1,000 mcg PO BID 10/18/16 05/19/17 History [Vitamin B-12] Primidone [Mysoline] 25 mg PO W/SUPPER 10/18/16 05/19/17 History oxyCODONE HCL [Roxicodone] 15 mg PO TID PRN 10/18/16 05/19/17 History Baclofen 10 mg PO BID 05/19/17 05/19/17 History Allergies Allergy/AdvReac Type Severity Reaction Status Date / Time No Known Allergies Allergy Verified 05/19/17 13:03 Surgical - Exam Vital Signs Temp Pulse Resp BP Pulse Ox 99.1 F 67 18 150/77 99 05/21/17 11:05 05/21/17 11:05 05/21/17 11:05 05/21/17 11:05 05/21/17 11:05 - General well developed, no distress - Eyes PERRL - ENT normal pinna - Neck no masses - Respiratory normal expansion - Cardiovascular Rhythm: regular - Abdomen Abdomen: soft Hernia: incisional (5 cm incisional hernia located just below umbilicus) Assessment and Plan Assessment: Incisional hernia. We will perform laparoscopic robotic assistance repair.
[2017-05-21] MEDS ORDERED: MIDAZOLAM 2 MG/2 ML VIAL ONE (11:58)
[2017-05-21] MEDS ORDERED: ROCURONIUM BROMIDE 10 MG/ML 10 ML VIAL IV ONE (11:58)
[2017-05-21] MEDS ORDERED: fentaNYL (PF) 50 MCG/ML 2 ML AMP ONE (11:58)
[2017-05-21] MEDS ORDERED: HYDROmorphone (PF) 1 MG/ML ONE (11:58)
[2017-05-21] MEDS ORDERED: PROPOFOL 10 MG/ML 20 ML VIAL IV ONE (11:58)
[2017-05-21] MEDS ORDERED: BUPIVACAINE (PF) 0.25% 30 ML VIAL SQ ONE (12:35)
[2017-05-21] MEDS: fentaNYL (PF) 50 MCG/ML 2 ML AMP IVP ONE ×2 (13:26→13:50)
[2017-05-21 13:31] VITALS: TEMP 98.6
[2017-05-21] MEDS ORDERED: MORPHINE SULFATE 4 MG/ML SYRINGE IVP ONE (13:56)
[2017-05-21] MEDS ORDERED: fentaNYL (PF) 50 MCG/ML 2 ML AMP IVP ONE (14:07)
[2017-05-21] MEDS ORDERED: diphenhydrAMINE 50 MG/ML 1 ML VIAL IVP ONE (14:18)
[2017-05-21] MEDS ORDERED: KETOROLAC 30 MG/ML 1 ML VIAL IVP ONE (14:42)
[2017-05-21 14:45] VITALS: RESP 16
[2017-05-21] MEDS ORDERED: LACTATED RINGERS 1,000 ML IV ONE (16:03)
[2017-05-21] MEDS ORDERED: HYDROcodone/APAP 7.5-325MG 1 EACH TAB PO ONE (16:41)
[2017-05-21 17:25] VITALS: PULSE 77
[2017-05-21 17:31] VITALS: BP 128/70
--- NOTE | 2017-05-29 12:31 | P.OP ---
Date of Procedure: 05/21/17 Preoperative Diagnosis: Incisional hernia Postoperative Diagnosis: Incarcerated incisional hernia Procedure(s) Performed: Laparoscopic robotic system repair of incarcerated incisional hernia Partial omentectomy Anesthesia: CHANDLER Surgeon: Severo Meneses Estimated Blood Loss (ml): 5 Pathology: other (Omentum) Condition: stable Disposition: PACU Description of Procedure: The patient was placed on the operating table in the supine position. He received general anesthesia. His abdomen was prepped and draped usual fashion. Using a 5 mm optical trocar under direct visualization the peritoneal cavity was entered in the left upper quadrant. The abdomen was then insufflated. The laparoscope was placed back into the perineal cavity. Next a 8 mm robotic trocar was placed in the left lower quadrant and a 12 mm robotic trocar was placed in the left lateral position. The original 5 mm trocar was exchanged for a 8 mm robotic trocar. The patient's placed in the left side up position. And the patient was docked to the robot. The incisional hernia was visualized. There was incarcerated omentum within the hernia. Using the hook cautery the omentum was freed from hernia. Omentum was transected. Using hook cautery the peritoneum over the incisional hernia was excised. The fascial opening was repaired using 0V LOC suture. Next a piece of 11 cm round ventral light ST mesh was placed into the. Cavity and secured with 2 OV lock suture. The patient was undocked the robot. The needles were retrieved. The incarcerated omentum was achieved. The fascia of the 12 mm trocar site was closed with 0 Ethibond suture. Skin was closed interrupted 3-0 Monocryl suture. Dermabond dressings was applied. Patient tolerated procedure well and was sent to recovery room stable condition.
== END 2017-05-21 18:12 | disposition home or self-care (01) ==
LOC: OR 08:59
PROVIDERS: ATTEND Surgery
DX: K43.0 Incisional hernia with obstruction, without gangrene (principal); K21.9 Gastro-esophageal reflux disease without esophagitis; Z86.73 Personal history of transient ischemic attack (TIA), and cerebral infarction without residual deficits; E78.5 Hyperlipidemia, unspecified; I10 Essential (primary) hypertension; M79.7 Fibromyalgia; M19.90 Unspecified osteoarthritis, unspecified site; G47.30 Sleep apnea, unspecified; G35 Multiple sclerosis; G25.81 Restless legs syndrome; Z79.899 Other long term (current) drug therapy
CPT/HCPCS: 88302; 49655; C1781; J2250; J2270; J1200; J1644; J2405; J3010; J1885; J1170; J2704; J0690; 86850; 86900; 86901

== ENCOUNTER → 2017-06-13 | Outpatient (CLI) | payer MEDICARE, OTHER ==
--- NOTE | 2017-06-13 12:30 | US ---
EXAMINATION TYPE: US venous doppler duplex LE RT DATE OF EXAM: 06/13/2017 12:17 PM COMPARISON: CLINICAL HISTORY: M79.604 PAIN IN RT LEG,R609 EDEMA. Pain in right leg. On aspirin. SIDE PERFORMED: Right TECHNIQUE: The lower extremity deep venous system is examined utilizing real time linear array sonog juan with graded compression, doppler sonography and color-flow sonography. VESSELS IMAGED: External Iliac Vein (EIV) Common Femoral Vein Deep Femoral Vein Greater Saphenous Vein * Femoral Vein Popliteal Vein Small Saphenous Vein * Proximal Calf Veins (* superficial vessels) Grayscale, color doppler, spectral doppler imaging performed of the deep veins of the lower extremity . There is normal flow, compressibility, vascular waveforms. IMPRESSION: Right Leg: Appears negative for DVT
== END ==
LOC: RADUSWWP 11:40
PROVIDERS: ATTEND Family Medicine
DX: M79.604 Pain in right leg (principal); R60.9 Edema, unspecified

== ENCOUNTER → 2017-06-16 | Outpatient (CLI) | payer MEDICARE, OTHER ==
--- NOTE | 2017-06-16 13:02 | MR ---
EXAMINATION TYPE: MR brain wo/w con DATE OF EXAM: 06/16/2017 COMPARISON: Prior MRI brain October 19, 2016 HISTORY: TIA and multiple sclerosis progress study. TECHNIQUE: Multiplanar, multisequence images of the brain and brainstem is performed without and with IV contras t, utilizing 7 mL intravenous Gadavist gadolinium contrast is administered intravenously. Demyelinat ing disease protocol with additional Sagittal Flair sequence performed. FINDINGS: T2 Lesions Present : Yes Approximate Number of Lesions: Approximately 30-40 scattered small lesions best appreciated on sagitt al images. Locations Identified : Scattered deep and periventricular Size of Reference Lesion(s): 1. 0.4 cm x # cm x 0.3 cm on axial image 19 and sagittal image 12 left frontal deep white matter sta ble. Enhancing Lesion(s) Present: No Change from Prior: Stable in retrospect Diffusion weighted images demonstrate no evidence of a recent infarct or other diffusion abnormality. There is no worrisome extra-axial fluid collection. The ventricular system and cisternal spaces ar e normal in size and appearance. The brain volume is age appropriate. Midline structures demonstrate normal morphology. The craniocervical junction appears within normal limits. Post contrast images demonstrate no abnormal enhancement. The dural venous sinuses appear pa tent. The visualized sinuses are clear and the globes are intact. IMPRESSION: 1. No evidence of a recent infarct. 2. Mild to moderate nonspecific white matter changes may be on basis of patient's known multiple scle rosis. In retrospect no significant change from prior MRI. Lesions are best appreciated on sagittal s equence and may have been missed on prior axial sequence. No obvious new or enhancing lesions noted.
== END | disposition home or self-care (01) ==
LOC: RADMRIMAIN 11:12
PROVIDERS: ATTEND Psychiatry & Neurology Neurology
DX: G35 Multiple sclerosis (principal); R90.89 Other abnormal findings on diagnostic imaging of central nervous system; Z86.73 Personal history of transient ischemic attack (TIA), and cerebral infarction without residual deficits
CPT/HCPCS: 82565; 84520; 70553; 36415; A9581

== ENCOUNTER → 2017-06-20 | Outpatient (CLI) | payer MEDICARE, OTHER ==
--- NOTE | 2017-06-20 14:32 | US ---
EXAMINATION TYPE: US carotid duplex BILAT DATE OF EXAM: 06/20/2017 COMPARISON: Carotid ultrasound October 18, 2016 CLINICAL HISTORY: I63.9 Transiant ischemic attack. EXAM MEASUREMENTS: RIGHT: Peak Systolic Velocity (PSV) cm/sec ----- Right CCA: 89.3 ----- Right ICA: 83.8 ----- Right ECA: 92.1 ICA/CCA ratio: 0.93 RIGHT: End Diastole cm/sec ----- Right CCA: 21.6 ----- Right ICA: 23.0 ----- Right ECA: 12.7 LEFT: Peak Systolic Velocity (PSV) cm/sec ----- Left CCA: 93.1 ----- Left ICA: 89.5 ----- Left ECA: 75.1 ICA/CCA ratio: 0.95 LEFT: End Diastole cm/sec ----- Left CCA: 27.8 ----- Left ICA: 48.0 ----- Left ECA: 20.4 VERTEBRALS (direction of flow): Right Vertebral: Antegrade Left Vertebral: Antegrade Rhythm: Normal Grayscale images show no significant plaque at carotid bulb level bilaterally. Velocity measurements and ratios are within normal limits in both internal carotid arteries. IMPRESSION: No hemodynamically significant stenosis is seen in either internal carotid artery.
== END ==
LOC: RADUSWWP 13:39
PROVIDERS: ATTEND Psychiatry & Neurology Neurology
DX: I63.9 Cerebral infarction, unspecified (principal)
CPT/HCPCS: 93880

== ENCOUNTER → 2017-06-20 | Outpatient (CLI) | payer MEDICARE, OTHER ==
[2017-06-20 14:58] LABS: Blood Urea Nitrogen 15 mg/dL (7-17)
--- NOTE | 2017-06-20 16:31 | CT ---
EXAMINATION TYPE: CT abdomen pelvis w con DATE OF EXAM: 06/20/2017 COMPARISON: 03/13/2016 HISTORY: Left sided abdominal pain x [address] DLP: 588.7 mGycm CONTRAST: CT scan of the abdomen and pelvis is performed with Oral Contrast and with IV Contrast, patient injec ricky with 100 mL of Isovue M300. FINDINGS: LUNG BASES-: No visible nodule. No infiltrate. LIVER/GB: Cholecystectomy clips are in place. There is evidence of hepatic steatosis. No space occ upying hepatic lesion. Biliary tree is of normal caliber. PANCREAS: No inflammation. No distinct mass. SPLEEN: No splenic enlargement. No lesion seen. ADRENALS: No nodule. No thickening. KIDNEYS/BLADDER: No hydronephrosis. No nephrolithiasis. No distinct renal mass. Urinary bladder g rossly unremarkable. BOWEL: Epigastric clips noted. Nonvisualization of the appendix. Wall thickening involving the descen ding colon may reflect colitis. Changes of prior sigmoid resection. GENITAL ORGANS: No gross abnormality. LYMPH NODES: No greater than 1cm abdominal or pelvic lymph nodes are appreciated. AORTA: No significant abnormality. OSSEOUS STRUCTURES: No significant abnormality is seen. OTHER: No significant additional abnormality is seen. IMPRESSION: 1. Correlate for descending colonic colitis nonspecific type. 2. Fatty liver.
== END ==
LOC: RADCTMAIN 14:19
PROVIDERS: ATTEND Surgery
DX: K76.0 Fatty (change of) liver, not elsewhere classified (principal)
CPT/HCPCS: 82565; 84520; 74177; 36415; Q9967

== ENCOUNTER 2017-07-02 12:24 | Day surgery (SDC) | payer MEDICARE, OTHER ==
[2017-06-30 11:16] VITALS: BMI 29.0
[~2017-07-02 12:24] MED LIST changes: -HEPARIN SODIUM,PORCINE 5,000 UNIT/ML 1 ML VIAL SQ ONE; -HYDROmorphone 0.5 MG/0.5 ML SYRINGE IVP PRN; +LIDOCAINE 1% 20 ML VIAL (10MG/ML) FOR IV START INTRADERMA PRN; -ONDANSETRON 4 MG/2 ML VIAL IVP PRN; -ceFAZolin IN SWFI 2 GM/20 ML SYRINGE IVP ONE
[2017-07-02 13:28] VITALS: TEMP 97.6
[2017-07-02] MEDS ORDERED: PROPOFOL 10 MG/ML 20 ML VIAL IV ONE (14:50)
--- NOTE | 2017-07-02 14:53 | P.GSHP ---
History of Present Illness H&P Date: 07/02/17 Chief Complaint: Abdominal pain, colitis This a 67-year-old female who presents today for colonoscopy. Patient has had complaints of abdominal pain. Her recent colonoscopy shows evidence of possible colitis the descending colon. Past Medical History Past Medical History: CVA/TIA, Fibromyalgia, GERD/Reflux, Hyperlipidemia, Hypertension, Musculoskeletal Disorder, Pneumonia, Sleep Apnea/CPAP/BIPAP Additional Past Medical History / Comment(s): NO CPAP, HX OF MS, hx VERTIGO AND HAS HAD FALLS, RESTLESS LEG, SLIGHT LEFT SIDED WEAKNESS FROM TIA, hx diverticulitis, abdominal pain on left side, diarrhea, History of Any Multi-Drug Resistant Organisms: None Reported Past Surgical History: Appendectomy, Bowel Resection, Breast Surgery, Cholecystectomy, Hernia Repair, Hysterectomy, Orthopedic Surgery Additional Past Surgical History / Comment(s): RIGHT BREAST BIOPSY,CARPAL TUNNEL THELMA.,RT WRIST thumb joing replacement, BONE SPUR REMOVED FROM PELVIS, SURG FOR ACID REFLUX, HEMORRHOIDECTOMY, THELMA CATARACTS, recent incisional hernia surgery Past Anesthesia/Blood Transfusion Reactions: No Reported Reaction Smoking Status: Never smoker - Past Family History Father Additional Family Medical History / Comment(s): at age 30- drowning Son(s) Family Medical History: Cancer Additional Family Medical History / Comment(s): MELENOMA Sister(s) Family Medical History: Cancer Additional Family Medical History / Comment(s): BREAST Mother Family Medical History: Deep Vein Thrombosis (DVT), Pulmonary Embolus Medications and Allergies Home Medications Medication Instructions Recorded Confirmed Type Atorvastatin [Lipitor] 40 mg PO QAM 06/13/14 07/02/17 History Famotidine [Pepcid] 20 mg PO BID 06/13/14 07/02/17 History Lansoprazole 30 mg PO QAM 06/13/14 07/02/17 History Pregabalin [Lyrica] 100 mg PO TID 05/29/15 07/02/17 History rOPINIRole HCL [Requip] 0.5 mg PO HS 04/26/16 07/02/17 History Celecoxib [CeleBREX] 200 mg PO HS 04/30/16 07/02/17 History Perampanel [Fycompa] 8 mg PO HS 04/30/16 07/02/17 History Cyanocobalamin (Vitamin B-12) 1,000 mcg PO BID 10/18/16 07/02/17 History [Vitamin B-12] Primidone [Mysoline] 25 mg PO W/SUPPER 10/18/16 07/02/17 History oxyCODONE HCL [Roxicodone] 15 mg PO TID PRN 10/18/16 07/02/17 History Baclofen 10 mg PO BID 05/19/17 07/02/17 History Docusate [Colace] 100 mg PO BID #20 capsule 05/21/17 07/02/17 Rx Allergies Allergy/AdvReac Type Severity Reaction Status Date / Time No Known Allergies Allergy Verified 07/02/17 13:44 Surgical - Exam Vital Signs Temp Pulse Resp BP Pulse Ox 97.6 F 81 16 126/77 95 07/02/17 13:26 07/02/17 13:26 07/02/17 13:26 07/02/17 13:26 07/02/17 13:26 - General well developed, no distress - Eyes PERRL - ENT normal pinna - Neck no masses - Respiratory normal expansion - Cardiovascular Rhythm: regular - Abdomen Abdomen: soft, non tender Assessment and Plan Assessment: We'll perform colonoscopy.
--- NOTE | 2017-07-02 15:07 | P.OP ---
Date of Procedure: 07/02/17 Preoperative Diagnosis: Colitis Postoperative Diagnosis: Diverticulosis Procedure(s) Performed: Colonoscopy Anesthesia: MAC Surgeon: Severo Meneses Pathology: other (Left colon, sigmoid) Condition: stable Disposition: PACU Description of Procedure: The patient's placed on the endoscopy table in the lateral position. She received IV sedation. Digital rectal exam was performed which revealed a few hemorrhoids. The flexible colonoscope was then placed patient anus passed throughout the entire colon. The ileocecal valve was visualized. The cecum appeared normal. In the ascending colon there was a few scattered diverticula. Scope was then brought back the transverse colon and this appeared normal. In the descending and; there is some mild diverticular changes. There is no evidence of any colonic inflammation. (Then brought back the rectum and this appeared normal. Scope was withdrawn for patient.
[2017-07-02 15:45] VITALS: BP 129/79; PULSE 75; RESP 16
== END 2017-07-02 15:55 | disposition home or self-care (01) ==
LOC: ORWHC2ENDO 12:24
PROVIDERS: ATTEND Surgery
DX: K57.30 Diverticulosis of large intestine without perforation or abscess without bleeding (principal); K52.9 Noninfective gastroenteritis and colitis, unspecified; K21.9 Gastro-esophageal reflux disease without esophagitis; I10 Essential (primary) hypertension; E78.5 Hyperlipidemia, unspecified; M79.7 Fibromyalgia; G25.81 Restless legs syndrome; G47.33 Obstructive sleep apnea (adult) (pediatric); G35 Multiple sclerosis; I69.354 Hemiplegia and hemiparesis following cerebral infarction affecting left non-dominant side; Z79.899 Other long term (current) drug therapy
CPT/HCPCS: 88305; 45380; J2704

== ENCOUNTER → 2017-07-15 | Outpatient (CLI) | payer MEDICARE, OTHER ==
--- NOTE | 2017-07-15 21:56 | CT ---
EXAMINATION TYPE: CT abdomen pelvis w con DATE OF EXAM: 07/15/2017 HISTORY: LUQ PAIN, HX OF HERNIA REPAIR and bowel resection. CT DLP: 1232mGycm Automated Exposure Control for Dose Reduction was Utilized. CONTRAST: CT scan of the abdomen and pelvis is performed with oral and with IV Contrast, patient injected with 100 mL of Isovue 300. COMPARISON: Recent CT abdomen and pelvis study June 20, 2017. FINDINGS: LUNG BASES: No significant abnormality is appreciated. LIVER/GB: Cholecystectomy clips are redemonstrated. Liver remains low dense suggesting fatty infiltra tion. PANCREAS: No significant abnormality is seen. SPLEEN: Subcentimeter splenule in splenic hilum axial image 12 is redemonstrated. ADRENALS: No significant abnormality is seen. KIDNEYS: No significant abnormality is seen. BOWEL: The oral contrast reaches level of rectum. There is no suspicious small or large bowel dilatat ion. There are occasional scattered colonic diverticula are seen. There is no CT evidence for acute d iverticulitis. Sutures at level of sigmoid colon are less well seen on current study due to opacified bowel but remain present and axial image 69. UTERUS/ADNEXA: Uterus is surgically absent. Prominent ovaries are seen in the adnexa. LYMPH NODES: No greater than 1cm abdominal or pelvic lymph nodes are appreciated. OSSEOUS STRUCTURES: There is moderate multilevel spurring in the thoracic spine. There is mild to mod erate disc space narrowing lumbosacral junction redemonstrated. OTHER: Vertical scar overlies the anterior abdominal wall in the midline mid to lower abdomen. IMPRESSION: No significant new or acute finding is seen to account for patient's clinical symptoms.
== END | disposition home or self-care (01) ==
LOC: RADCTMAIN 18:10
PROVIDERS: ATTEND Surgery
DX: R10.12 Left upper quadrant pain (principal)
CPT/HCPCS: 82565; 84520; 74177; 36415; Q9967

== ENCOUNTER → 2017-08-20 | Outpatient (CLI) | payer MEDICARE, OTHER ==
--- NOTE | 2017-08-20 07:53 | US ---
EXAMINATION TYPE: US abdomen complete DATE OF EXAM: 08/20/2017 COMPARISON: CLINICAL HISTORY: R10.12 Left upper quadrant pain. LUQ pain since May, GB removed x 10 years, NPO EXAM MEASUREMENTS: Liver Length: 16.3 cm CBD: 0.6 cm CHD: 0.5 cm Spleen: 10.6 cm Right Kidney: 10.7 x 4.4 x 4.2 cm Left Kidney: 11.7 x 4.6 x 5.3 cm Pancreas: Echogenic. Tail obscured by overlying bowel gas Liver: Appears course and echogenic. Gallbladder: Surgically absent Evidence for sonographic Velazquez's sign: neg CBD: wnl CHD: wnl Spleen: wnl Right Kidney: Appears lobular Left Kidney: Dromedary hump, cortical thinning Upper IVC: wnl Abd Aorta: wnl IMPRESSION: 1. No acute ultrasound abnormality. 2. No suspicious changes to account for left upper quadrant pain.
== END | disposition home or self-care (01) ==
LOC: RADUSWWP 06:46
PROVIDERS: ATTEND Family Medicine
DX: R10.12 Left upper quadrant pain (principal)
CPT/HCPCS: 76700

== ENCOUNTER → 2018-04-23 | Outpatient (CLI) | payer MEDICARE, OTHER ==
[2018-04-23 09:42] LABS: Basophils % (A) 1 %; Eosinophils # (A) 0.2 k/uL (0-0.7); Eosinophils % (A) 2 %; HCT 40.3 % (34.0-46.0); HGB 12.9 gm/dL (11.4-16.0); Lymphocytes # (A) 1.8 k/uL (1.0-4.8); Lymphocytes % (A) 27 %; MCH 29.9 pg (25.0-35.0); MCV 93.2 fL (80.0-100.0); Mean Platelet Volume 6.6; Monocytes # (A) 0.4 k/uL (0-1.0); Monocytes % (A) 7 %; Neutrophils # (A) 4.2 k/uL (1.3-7.7); Neutrophils % (A) 62 %; Platelet Count 329 k/uL (150-450); RBC 4.32 m/uL (3.80-5.40); RDW 13.7 % (11.5-15.5); WBC 6.7 k/uL (3.8-10.6)
[2018-04-23 18:18] LABS: Albumin 4.2 g/dL (3.80-4.90); Albumin/Globulin Ratio 2.47 (1.60-3.17); Anion Gap 8.7 mmol/L (4.00-12.00); Calcium 9.3 mg/dL (8.7-10.3); Carbon Dioxide 28.3 mmol/L (21.6-31.8); Globulin 1.7 g/dL (1.6-3.3); LDL Cholesterol,Calculated 109.6 mg/dL (0.0-131.0); Potassium 4.4 mmol/L (3.5-5.5); Total Bilirubin 0.6 mg/dL (0.2-1.2); Total Protein 5.9 g/dL (6.2-8.2); VLDL Calculation 19.4 mg/dL (5.00-40.00)
== END | disposition home or self-care (01) ==
LOC: LABWHC1 09:02
PROVIDERS: ATTEND Physician Assistant Medical
DX: Z00.00 Encounter for general adult medical examination without abnormal findings (principal); E55.9 Vitamin D deficiency, unspecified; E78.5 Hyperlipidemia, unspecified
CPT/HCPCS: 36415; 80053; 80061; 82306; 82550; 84443; 85025

== ENCOUNTER 2018-05-10 22:21 | Emergency (ER) | payer MEDICARE, OTHER ==
[2018-05-10 22:28] VITALS: TEMP 98.2
[2018-05-10] MEDS ORDERED: SODIUM CHLORIDE 0.9% 500 ML 500 ML IV STA (23:04)
--- NOTE | 2018-05-10 23:07 | ED ---
General Adult HPI - General Chief complaint: Chest Pain Stated complaint: Chest tightness Time Seen by Provider: 05/10/18 22:31 Source: patient Mode of arrival: ambulatory Limitations: no limitations - History of Present Illness Initial comments: Dictation was produced using [employer] dictation software. please excuse any grammatical, word or spelling errors. Chief Complaint: 68-year-old female past medical history of multiple sclerosis, GERD, TIA, fibromyalgia presents with chest pressure, left lower face tingling and left upper extremity tingling. History of Present Illness: Patient states her symptoms began approximately 7 PM. She states that she was at home watching TV when this occurred. Patient states she also experience chest pressure along with the symptoms. She describes that her symptoms began as left upper extremity tingling. Her symptoms then progressed to mild chest pressure. She then states that the tingling to her left lower face. Patient denies any confusion. Denies weakness. Patient has history of transient ischemic attack. She checked her blood pressure prior to this and then realized that it was hot to come to the emergency department. Patient has any weakness. He does have a history of multiple sclerosis and takes multiple sclerosis medications. She also complains of mild chest pain that radiates to the back. She denies any arm pain or neck pain. The ROS documented in this emergency department record has been reviewed and confirmed by me. Those systems with pertinent positive or negative responses have been documented in the HPI. All other systems are other negative and/or noncontributory. PHYSICAL EXAM: General Impression: Alert and oriented x3, not in acute distress HEENT: Normocephalic atraumatic, extra-ocular movements intact, pupils equal and reactive to light bilaterally, mucous membranes moist. Cardiovascular: Heart regular rate and rhythm, S1&S2 audible, no murmurs, rubs or gallops Chest: Lungs clear to auscultation bilaterally, no rhonchi, no wheeze, no rales Abdomen: Bowel sounds present, abdomen soft, non-tender, non-distended, no organomegaly Musculoskeletal: Pulses present and equal in all extremities, no peripheral edema Motor: Diffuse extremity weakness, no focal deficits noted Neurological: Mild left facial droop, sensory deficit to the left lower face and left upper extremity. Skin: Intact with no visualized rashes Psych: Normal affect and mood ED course: Patient is 68-year-old female presents with strokelike symptoms of chest pressure. Vital signs upon arrival shows heart rate of 108, blood pressure 195/102, worse vital signs within acceptable limits. Patient given initial NIH score of 3-4. Patient's time of onset of symptoms was 7 PM. Code stroke was paged at approximately 11 PM.Laboratory evaluation obtained. CBC, metabolic panel, coag panel is unremarkable. Cardiac troponins negative. CT brain, CT angiogram of the chest, head and neck are all unremarkable. Received a call from code stroke neurologist who recommends no TPA at this time. He does recommend further medical management and evaluation of symptoms. At approximately 12:00 AM patient was reevaluated and reports that her symptoms are gone. Discussed with patient that we recommend transfer to another facility where there is neurology. Patient states that she does not want to be transferred given distance to her household. At this point patient's clinical presentation is consistent with transient ischemic attack. Patient states that she has established neurologic care with Dr. Miner. She believes that she can manage as outpatient. Discussed patient that I would strongly recommend transfer to outside facility. She is told that she could experience a worse stroke to occur within 24-48 hours that could cause lifelong debility. She understands the risk of being discharged. Patient told that if she begins experiencing strokelike symptoms to come to the emergency Department immediately. Patient also had chest pressure with extremity symptoms which may be interpreted as acute coronary syndrome. Patient had to sit troponins. She is heart score of 2. Considered low risk. Patient does have established primary care physician. She is told that she'll need a stress test in 1-2 days. She is understandable and agreeable. Patient still refusing transfer to neurology Center. Patient still continues to be asymptomatic of neuro deficits or chest pain at this time. Patient told to return to the emergency department with recurrence of symptoms including chest pain, shortness of breath, neuro deficits. Patient given aspirin. Patient be discharged. EKG interpretation: Ventricular rate 92, normal sinus rhythm,. Interval 136, QRS 76, QTC 455. No MA prolongation, no QTC prolongation, no ST or T-wave changes noted. Overall, this EKG is unremarkable - Related Data Home Medications Medication Instructions Recorded Confirmed Famotidine [Pepcid] 20 mg PO BID 06/13/14 05/10/18 Lansoprazole 30 mg PO QAM 06/13/14 05/10/18 rOPINIRole HCL [Requip] 0.5 mg PO HS 04/26/16 05/10/18 Perampanel [Fycompa] 8 mg PO HS 04/30/16 05/10/18 Primidone [Mysoline] 25 mg PO W/SUPPER 10/18/16 05/10/18 oxyCODONE HCL [Roxicodone] 15 mg PO TID PRN 10/18/16 05/10/18 Baclofen 10 mg PO BID 05/19/17 05/10/18 Anpyrya 1 tab PO DAILY 05/10/18 Aspirin EC [Ecotrin Low Dose] 81 mg PO 05/10/18 Atorvastatin [Lipitor] 40 mg PO DAILY 05/10/18 05/10/18 Celecoxib [CeleBREX] 200 mg PO BID 05/10/18 05/10/18 DULoxetine HCL [Cymbalta] 60 mg PO DAILY 05/10/18 05/10/18 Ezetimibe [Zetia] 10 mg PO DAILY 05/10/18 05/10/18 Fluticasone Nasal [place] [Flonase 1 spray EA NOSTRIL BID 05/10/18 05/10/18 Nasal [place]] Allergies Allergy/AdvReac Type Severity Reaction Status Date / Time No Known Allergies Allergy Verified 05/10/18 23:06 Review of Systems ROS Statement: Those systems with pertinent positive or pertinent negative responses have been documented in the HPI. ROS Other: All systems not noted in ROS Statement are negative. Past Medical History Past Medical History: CVA/TIA, Fibromyalgia, GERD/Reflux, Hyperlipidemia, Hypertension, Musculoskeletal Disorder, Pneumonia, Sleep Apnea/CPAP/BIPAP Additional Past Medical History / Comment(s): NO CPAP, HX OF MS, hx VERTIGO AND HAS HAD FALLS, RESTLESS LEG, SLIGHT LEFT SIDED WEAKNESS FROM TIA, hx diverticulitis, History of Any Multi-Drug Resistant Organisms: None Reported Past Surgical History: Appendectomy, Bowel Resection, Breast Surgery, Cholecystectomy, Hernia Repair, Hysterectomy, Orthopedic Surgery Additional Past Surgical History / Comment(s): RIGHT BREAST BIOPSY,CARPAL TUNNEL THELMA.,RT WRIST thumb joing replacement, BONE SPUR REMOVED FROM PELVIS, SURG FOR ACID REFLUX, HEMORRHOIDECTOMY, THELMA CATARACTS, recent incisional hernia surgery, Past Anesthesia/Blood Transfusion Reactions: No Reported Reaction Past Psychological History: No Psychological Hx Reported Smoking Status: Never smoker Past Alcohol Use History: None Reported Past Drug Use History: None Reported - Past Family History Father Additional Family Medical History / Comment(s): at age 30- drowning Son(s) Family Medical History: Cancer Additional Family Medical History / Comment(s): MELENOMA Sister(s) Family Medical History: Cancer Additional Family Medical History / Comment(s): BREAST Mother Family Medical History: Deep Vein Thrombosis (DVT), Pulmonary Embolus General Exam Limitations: no limitations Course Vital Signs 05/10/18 22:25 Temperature 98.2 F Pulse Rate 108 H Respiratory 18 Rate Blood Pressure 195/102 O2 Sat by Pulse 99 Oximetry Medical Decision Making - Lab Data Result diagrams: 05/10/18 22:48 05/10/18 22:48 Lab Results 05/10/18 05/10/18 05/10/18 Range/Units 22:48 22:48 22:48 WBC 8.3 (3.8-10.6) k/uL RBC 4.06 (3.80-5.40) m/uL Hgb 12.2 (11.4-16.0) gm/dL Hct 36.7 (34.0-46.0) % MCV 90.3 (80.0-100.0) fL MCH 30.1 (25.0-35.0) pg MCHC 33.4 (31.0-37.0) g/dL RDW 13.4 (11.5-15.5) % Plt Count 342 (150-450) k/uL Neutrophils % 54 % Lymphocytes % 33 % Monocytes % 8 % Eosinophils % 2 % Basophils % 1 % Neutrophils # 4.5 (1.3-7.7) k/uL Lymphocytes # 2.8 (1.0-4.8) k/uL Monocytes # 0.7 (0-1.0) k/uL Eosinophils # 0.2 (0-0.7) k/uL Basophils # 0.1 (0-0.2) k/uL PT (9.0-12.0) sec INR (<1.2) APTT (22.0-30.0) sec Sodium 142 (137-145) mmol/L Potassium 3.4 L (3.5-5.1) mmol/L Chloride 107 (98-107) mmol/L Carbon Dioxide 26 (22-30) mmol/L Anion Gap 9 mmol/L BUN 11 (7-17) mg/dL Creatinine 0.66 (0.52-1.04) mg/dL Est GFR (CKD-EPI)AfAm >90 (>60 ml/min/1.73 sqM) Est GFR (CKD-EPI)NonAf >90 (>60 ml/min/1.73 sqM) Glucose 110 H (74-99) mg/dL Calcium 9.4 (8.4-10.2) mg/dL Total Bilirubin 0.5 (0.2-1.3) mg/dL AST 22 (14-36) U/L ALT 22 (9-52) U/L Alkaline Phosphatase 102 (38-126) U/L Total Creatine Kinase 77 (30-135) U/L CK-MB (CK-2) 0.4 (0.0-2.4) ng/mL CK-MB (CK-2) Rel Index 0.5 Troponin I <0.012 (0.000-0.034) ng/mL Total Protein 6.5 (6.3-8.2) g/dL Albumin 4.0 (3.5-5.0) g/dL 05/10/18 05/11/18 Range/Units 22:48 01:43 WBC (3.8-10.6) k/uL RBC (3.80-5.40) m/uL Hgb (11.4-16.0) gm/dL Hct (34.0-46.0) % MCV (80.0-100.0) fL MCH (25.0-35.0) pg MCHC (31.0-37.0) g/dL RDW (11.5-15.5) % Plt Count (150-450) k/uL Neutrophils % % Lymphocytes % % Monocytes % % Eosinophils % % Basophils % % Neutrophils # (1.3-7.7) k/uL Lymphocytes # (1.0-4.8) k/uL Monocytes # (0-1.0) k/uL Eosinophils # (0-0.7) k/uL Basophils # (0-0.2) k/uL PT 9.6 (9.0-12.0) sec INR 0.9 (<1.2) APTT 23.8 (22.0-30.0) sec Sodium (137-145) mmol/L Potassium (3.5-5.1) mmol/L Chloride (98-107) mmol/L Carbon Dioxide (22-30) mmol/L Anion Gap mmol/L BUN (7-17) mg/dL Creatinine (0.52-1.04) mg/dL Est GFR (CKD-EPI)AfAm (>60 ml/min/1.73 sqM) Est GFR (CKD-EPI)NonAf (>60 ml/min/1.73 sqM) Glucose (74-99) mg/dL Calcium (8.4-10.2) mg/dL Total Bilirubin (0.2-1.3) mg/dL AST (14-36) U/L ALT (9-52) U/L Alkaline Phosphatase (38-126) U/L Total Creatine Kinase (30-135) U/L CK-MB (CK-2) (0.0-2.4) ng/mL CK-MB (CK-2) Rel Index Troponin I <0.012 (0.000-0.034) ng/mL Total Protein (6.3-8.2) g/dL Albumin (3.5-5.0) g/dL Disposition Clinical Impression: TIA (transient ischemic attack), Chest pain Disposition: HOME SELF-CARE Condition: Fair Instructions (If sedation given, give patient instructions): Chest Pain (ED), Transient Ischemic Attack (ED) Is patient prescribed a controlled substance at d/c from ED?: No Referrals: Omid Hunter DO [Primary Care Provider] - 1-2 days Radames Miner MD [Medical Doctor] - 1-2 days Adam Becerra MD [STAFF PHYSICIAN] - 1-2 days Time of Disposition: 02:57
[2018-05-10 23:29] LABS: Basophils # (A) 0.1 k/uL (0-0.2); Basophils % (A) 1 %; Eosinophils # (A) 0.2 k/uL (0-0.7); Eosinophils % (A) 2 %; HCT 36.7 % (34.0-46.0); HGB 12.2 gm/dL (11.4-16.0); Lymphocytes # (A) 2.8 k/uL (1.0-4.8); Lymphocytes % (A) 33 %; MCH 30.1 pg (25.0-35.0); MCHC 33.4 g/dL (31.0-37.0); MCV 90.3 fL (80.0-100.0); Mean Platelet Volume 7.4; Monocytes # (A) 0.7 k/uL (0-1.0); Monocytes % (A) 8 %; Neutrophils # (A) 4.5 k/uL (1.3-7.7); Neutrophils % (A) 54 %; Platelet Count 342 k/uL (150-450); RBC 4.06 m/uL (3.80-5.40); RDW 13.4 % (11.5-15.5); WBC 8.3 k/uL (3.8-10.6)
[2018-05-10 23:32] LABS: INR 0.9 (<1.2); Partial Thromboplastin Time 23.8 sec (22.0-30.0); Prothrombin Time 9.6 sec (9.0-12.0)
[2018-05-10 23:39] LABS: ALT 22 U/L (9-52); AST 22 U/L (14-36); Alkaline Phosphatase 102 U/L (38-126); Anion Gap 9 mmol/L; Blood Urea Nitrogen 11 mg/dL (7-17); Calcium 9.4 mg/dL (8.4-10.2); Carbon Dioxide 26 mmol/L (22-30); Chloride 107 mmol/L (98-107); Glucose 110 mg/dL (74-99); Potassium 3.4 mmol/L (3.5-5.1); Sodium 142 mmol/L (137-145); Total Bilirubin 0.5 mg/dL (0.2-1.3); Total Protein 6.5 g/dL (6.3-8.2)
[2018-05-10 23:54] LABS: Creatine Kinase 77 U/L (30-135)
--- NOTE | 2018-05-10 23:54 | XR ---
EXAM: XR Chest, 1 View CLINICAL HISTORY: : altered mental status TECHNIQUE: Frontal view of the chest. COMPARISON: No relevant prior studies available. FINDINGS: Lungs: Mild prominence interstitial markings Pleural space: Unremarkable. No pleural effusions. No pneumothorax. Heart: Unremarkable. No cardiomegaly. Mediastinum: Unremarkable. Bones/joints: Unremarkable. IMPRESSION: Prominence interstitial markings bilaterally
[2018-05-10] MEDS ORDERED: ASPIRIN 81 MG PO STA (23:57)
--- NOTE | 2018-05-10 23:57 | CT ---
EXAM: CT Head Without Intravenous Contrast CLINICAL HISTORY: Neuro Deficits TECHNIQUE: Axial computed tomography images of the head/brain without intravenous contrast. DLP is 1695 mGy-cm. This CT exam was performed using one or more of the following dose reduction techniques: automated exposure control, adjustment of the mA and/or kV according to patient size, and/or use of iterative reconstruction technique. COMPARISON: No relevant prior studies available. FINDINGS: Brain: Unremarkable. No hemorrhage. No significant white matter disease. No edema. Ventricles: Unremarkable. No ventriculomegaly. Bones/joints: Unremarkable. No acute fracture. Soft tissues: Unremarkable. Sinuses: Unremarkable as visualized. No acute sinusitis. Mastoid air cells: Unremarkable as visualized. No mastoid effusion. IMPRESSION: Normal head/brain CT.
--- NOTE | 2018-05-11 00:05 | CT ---
EXAM: CT Angiography Head With Intravenous Contrast CLINICAL HISTORY: Neuro Deficits TECHNIQUE: Axial computed tomographic angiography images of the head with intravenous contrast using CT angiography protocol. DLP is 444.3 mGy-cm. This CT exam was performed using one or more of the following dose reduction techniques: automated exposure control, adjustment of the mA and/or kV according to patient size, and/or use of iterative reconstruction technique. MIP reconstructed images were created and reviewed. Coronal and sagittal reformatted images were created and reviewed. COMPARISON: No relevant prior studies available. FINDINGS: Right internal carotid artery: No acute findings. Intracranial segment is patent with no significant stenosis. No aneurysm. Right anterior cerebral artery: Unremarkable. No occlusion or significant stenosis. No aneurysm. Right middle cerebral artery: Unremarkable. No occlusion or significant stenosis. No aneurysm. Right posterior cerebral artery: Unremarkable. No occlusion or significant stenosis. No aneurysm. Right vertebral artery: Unremarkable as visualized. Left internal carotid artery: No acute findings. Intracranial segment is patent with no significant stenosis. No aneurysm. Left anterior cerebral artery: Unremarkable. No occlusion or significant stenosis. No aneurysm. Left middle cerebral artery: Unremarkable. No occlusion or significant stenosis. No aneurysm. Left posterior cerebral artery: Unremarkable. No occlusion or significant stenosis. No aneurysm. Left vertebral artery: Unremarkable as visualized. Basilar artery: Unremarkable. No occlusion or significant stenosis. No aneurysm. IMPRESSION: Unremarkable CTA of the brain EXAM: CT Angiography Neck With Intravenous Contrast CLINICAL HISTORY: Neuro Deficits TECHNIQUE: Axial computed tomographic angiography images of the neck with intravenous contrast using CT angiography protocol. DLP is 444.3mGy-cm. This CT exam was performed using one or more of the following dose reduction techniques: automated exposure control, adjustment of the mA and/or kV according to patient size, and/or use of iterative reconstruction technique. MIP reconstructed images were created and reviewed. Coronal and sagittal reformatted images were created and reviewed. COMPARISON: No relevant prior studies available. FINDINGS: VASCULATURE: Right common carotid artery: Unremarkable. No significant stenosis. No dissection or occlusion. Right internal carotid artery: Unremarkable. Extracranial segment is patent with no significant stenosis. No dissection or occlusion. Right external carotid artery: Unremarkable. No occlusion. Right vertebral artery: Unremarkable. No significant stenosis. No dissection or occlusion. Left common carotid artery: Unremarkable. No significant stenosis. No dissection or occlusion. Left internal carotid artery: Unremarkable. Extracranial segment is patent with no significant stenosis. No dissection or occlusion. Left external carotid artery: Unremarkable. No occlusion. Left vertebral artery: Unremarkable. No significant stenosis. No dissection or occlusion. NECK: Bones/joints: No acute fracture. No dislocation. Soft tissues: Unremarkable as visualized. No mass. CAROTID STENOSIS REFERENCE USING NASCET CRITERIA: % ICA stenosis = (1 - narrowest ICA diameter/diameter of distal cervical ICA) x 100. Mild - <50% stenosis. Moderate - 50-69% stenosis. Severe - 70-94% stenosis. Near occlusion - 95-99% stenosis. Occluded - 100% stenosis. IMPRESSION: No significant stenosis left or right common or internal carotid artery. Normal appearance vertebral arteries.
[2018-05-11 00:07] LABS: Creatine Kinase MB 0.4 ng/mL (0.0-2.4); Troponin I <0.012 ng/mL (0.000-0.034)
--- NOTE | 2018-05-11 00:18 | CT ---
EXAM: CT Angiography Chest With Intravenous Contrast CLINICAL HISTORY: Pain TECHNIQUE: Axial computed tomographic angiography images of the chest with intravenous contrast using pulmonary embolism protocol. DLP is 404 mGy- cm. This CT exam was performed using one or more of the following dose reduction techniques: automated exposure control, adjustment of the mA and/or kV according to patient size, and/or use of iterative reconstruction technique. MIP reconstructed images were created and reviewed. Coronal and sagittal reformatted images were created and reviewed. COMPARISON: No relevant prior studies available. FINDINGS: Pulmonary arteries: Unremarkable. No pulmonary embolism. Aorta: No acute findings. No thoracic aortic aneurysm. Lungs: Scarring suggested in the lingula. Minimal chronic interstitial changes in the lung bases No evidence for consolidation. Pleural space: Unremarkable. No significant effusion. No pneumothorax. Heart: Unremarkable. No cardiomegaly. No significant pericardial effusion. No evidence of RV dysfunction. Bones/joints: No acute fracture. No dislocation. Soft tissues: Unremarkable. Lymph nodes: There are a few enlarged lymph nodes measuring up to 2 cm in size in the mediastinum. IMPRESSION: Normal chest CTA. No pulmonary embolism. No evidence for consolidation or effusions. Scattered mediastinal lymph nodes
[2018-05-11 02:59] VITALS: RESP 16
[2018-05-11 03:01] VITALS: BP 130/78; PULSE 78
== END 2018-05-11 03:05 | disposition home or self-care (01) ==
LOC: EC 22:21
DX: G45.9 Transient cerebral ischemic attack, unspecified (principal); R07.89 Other chest pain; M79.7 Fibromyalgia; K21.9 Gastro-esophageal reflux disease without esophagitis; E78.5 Hyperlipidemia, unspecified; I10 Essential (primary) hypertension; G47.30 Sleep apnea, unspecified; Z99.89 Dependence on other enabling machines and devices; Z86.73 Personal history of transient ischemic attack (TIA), and cerebral infarction without residual deficits; Z96.631 Presence of right artificial wrist joint; Z96.89 Presence of other specified functional implants; Z53.29 Procedure and treatment not carried out because of patient's decision for other reasons; Z79.82 Long term (current) use of aspirin; Z79.1 Long term (current) use of non-steroidal anti-inflammatories (NSAID); Z79.899 Other long term (current) drug therapy
CPT/HCPCS: 99285; 36415 ×2; 93005; 80053; 82550; 82553; 84484 ×2; 85025; 85610; 85730; 71045; 70496; 70450; 70498; 71275; Q9967

== ENCOUNTER → 2018-05-25 | Outpatient (CLI) | payer MEDICARE, OTHER ==
--- NOTE | 2018-05-26 09:22 | MM ---
Reason for exam: screening (asymptomatic). Last mammogram was performed 3 years and 2 months ago. History: Patient is postmenopausal. Family history of breast cancer in sister at age 39. Excisional biopsy of the right breast, January 12, 2008. Cancelled Right Mammotome of the right breast, January 06, 2008. Took estrogen for 3 years. Physical Findings: A clinical breast exam by your physician is recommended on an annual basis and results should be correlated with mammographic findings. MG 3D Screening Mammo W/Cad Bilateral CC and MLO view(s) were taken. Prior study comparison: March 24, 2015, bilateral MG 3d screening mammo w/cad. December 30, 2013, bilateral MG screening mammo w CAD. The breast tissue is heterogeneously dense. This may lower the sensitivity of mammography. There is no discrete abnormality. No significant changes when compared with prior studies. ASSESSMENT: Negative, BI-RAD 1 RECOMMENDATION: Routine screening mammogram of both breasts in 1 year.
== END | disposition home or self-care (01) ==
LOC: RADMAMWWP 13:45
PROVIDERS: ATTEND Family Medicine
DX: Z12.31 Encounter for screening mammogram for malignant neoplasm of breast (principal)
CPT/HCPCS: 77063; 77067

== ENCOUNTER → 2018-09-10 | Outpatient (CLI) | payer MEDICARE, OTHER ==
[2018-09-10 12:11] LABS: Basophils % (A) 1 %; Eosinophils # (A) 0.1 k/uL (0-0.7); Eosinophils % (A) 2 %; HCT 37.9 % (34.0-46.0); HGB 12.4 gm/dL (11.4-16.0); Lymphocytes # (A) 1.6 k/uL (1.0-4.8); Lymphocytes % (A) 26 %; MCH 29.3 pg (25.0-35.0); MCHC 32.6 g/dL (31.0-37.0); Mean Platelet Volume 7.8; Monocytes # (A) 0.4 k/uL (0-1.0); Monocytes % (A) 7 %; Neutrophils # (A) 3.7 k/uL (1.3-7.7); Neutrophils % (A) 62 %; Platelet Count 332 k/uL (150-450); RBC 4.21 m/uL (3.80-5.40); RDW 14.6 % (11.5-15.5)
== END | disposition home or self-care (01) ==
LOC: LABPAT 11:30
PROVIDERS: ATTEND Surgery
DX: Z01.812 Encounter for preprocedural laboratory examination (principal); K43.2 Incisional hernia without obstruction or gangrene
CPT/HCPCS: 36415; 85025

== ENCOUNTER → 2018-09-10 | Outpatient (CLI) | payer MEDICARE, OTHER ==
--- NOTE | 2018-09-10 12:44 | FL ---
EXAMINATION TYPE: FL barium swallow DATE OF EXAM: 09/10/2018 CLINICAL HISTORY: Prior esophageal surgery per patient. Dysphagia. TECHNIQUE: A double contrast esophagram is performed utilizing air and barium. A total of 2 minutes and 4 seconds of fluoroscopic time was utilized during procedure. 42 fluoroscopic images were saved during the examination. COMPARISON: None FINDINGS: There appears to be a prior Zoe fundoplication with a very small hiatal hernia. There is impression on the posterior esophagus from small anterior osteophytes at multiple cervical vertebral levels. The esophagus shows normal motility and emptying into the stomach. No evidence of stricture noted. Mild intraesophageal and gastroesophageal reflux was seen during real time performance of thi s study. IMPRESSION: 1. Small hiatal hernia and findings suggesting prior Zoe fundoplication. Correlate with surgical h istory. 2. Mild intraesophageal and gastroesophageal reflux. No significant stricture.
== END | disposition home or self-care (01) ==
LOC: RADUSWWP 10:39
PROVIDERS: ATTEND Surgery
DX: K21.9 Gastro-esophageal reflux disease without esophagitis (principal); K44.9 Diaphragmatic hernia without obstruction or gangrene
CPT/HCPCS: 74220

== ENCOUNTER 2018-09-16 09:17 | Day surgery (SDC) | payer MEDICARE, OTHER ==
[2018-09-14 10:33] VITALS: BMI 29.7
[2018-09-16] MEDS ORDERED: PROPOFOL 10 MG/ML 20 ML VIAL IV ONE (10:48)
[2018-09-16] MEDS ORDERED: MIDAZOLAM 2 MG/2 ML VIAL ONE (10:48)
[2018-09-16] MEDS ORDERED: fentaNYL (PF) 50 MCG/ML 2 ML AMP ONE (10:48)
--- NOTE | 2018-09-16 10:53 | P.GSHP ---
History of Present Illness H&P Date: 09/16/18 Chief Complaint: Dysphagia This is a 68-year-old female who presents today for EGD. Patient's had complaints of dysphagia. Her recent esophagram was reviewed. There is evidence of a small recurrent hiatal hernia. She also has questionable displacement of her fundoplication wrap. Past Medical History Past Medical History: CVA/TIA, Fibromyalgia, GERD/Reflux, Hyperlipidemia, Hypertension, Musculoskeletal Disorder, Osteoarthritis (OA), Pneumonia, Sleep Apnea/CPAP/BIPAP Additional Past Medical History / Comment(s): NO CPAP, HX OF MS, hx VERTIGO AND HAS HAD FALLS, RESTLESS LEG, SLIGHT LEFT SIDED WEAKNESS FROM TIA, hx diverticulitis, History of Any Multi-Drug Resistant Organisms: None Reported Past Surgical History: Appendectomy, Bowel Resection, Breast Surgery, Cholecystectomy, Hernia Repair, Hysterectomy, Orthopedic Surgery Additional Past Surgical History / Comment(s): RIGHT BREAST BIOPSY,CARPAL TUNNEL THELMA.,RT WRIST thumb joing replacement, BONE SPUR REMOVED FROM PELVIS, SURG FOR ACID REFLUX, HEMORRHOIDECTOMY, THELMA CATARACTS, incisional hernia surgery, Past Anesthesia/Blood Transfusion Reactions: No Reported Reaction Smoking Status: Never smoker - Past Family History Father Additional Family Medical History / Comment(s): at age 30- drowning Son(s) Family Medical History: Cancer Additional Family Medical History / Comment(s): MELENOMA Sister(s) Family Medical History: Cancer Additional Family Medical History / Comment(s): BREAST Mother Family Medical History: Deep Vein Thrombosis (DVT), Pulmonary Embolus Medications and Allergies Home Medications Medication Instructions Recorded Confirmed Type Famotidine [Pepcid] 20 mg PO BID 06/13/14 09/16/18 History Lansoprazole 30 mg PO QAM 06/13/14 09/16/18 History rOPINIRole HCL [Requip] 0.5 mg PO HS 04/26/16 09/16/18 History Primidone [Mysoline] 25 mg PO W/SUPPER 10/18/16 09/16/18 History oxyCODONE HCL [Roxicodone] 15 mg PO TID PRN 10/18/16 09/16/18 History Baclofen 10 mg PO BID 05/19/17 09/16/18 History Aspirin EC [Ecotrin Low Dose] 81 mg PO DAILY 05/10/18 09/14/18 History Atorvastatin [Lipitor] 40 mg PO DAILY 05/10/18 09/16/18 History Celecoxib [CeleBREX] 200 mg PO BID 05/10/18 09/14/18 History DULoxetine HCL [Cymbalta] 60 mg PO DAILY 05/10/18 09/16/18 History Ezetimibe [Zetia] 10 mg PO DAILY 05/10/18 09/16/18 History Fluticasone Nasal [place] [Flonase 1 spray EA NOSTRIL BID 05/10/18 09/16/18 History Nasal [place]] Ampyra 1 tab PO HS 09/14/18 09/16/18 History Perampanel [Fycompa] 8 mg PO HS 09/14/18 09/16/18 History Allergies Allergy/AdvReac Type Severity Reaction Status Date / Time No Known Allergies Allergy Verified 09/16/18 09:28 Surgical - Exam Vital Signs Pulse Resp BP Pulse Ox 78 16 169/92 95 09/16/18 09:34 09/16/18 09:34 09/16/18 09:34 09/16/18 09:34 - General well developed, well nourished, no distress - Eyes PERRL - ENT normal pinna - Neck no masses - Respiratory normal expansion - Cardiovascular Rhythm: regular - Abdomen Abdomen: soft, non tender Assessment and Plan Assessment: Dysphagia. We'll perform EGD.
--- NOTE | 2018-09-16 11:11 | P.OP ---
Date of Procedure: 09/16/18 Preoperative Diagnosis: Dysphagia Postoperative Diagnosis: Mild antral gastritis Possible slipped fundoplication wrap Small hiatal hernia No evidence of significant esophagitis Procedure(s) Performed: EGD Anesthesia: MAC Surgeon: Severo Meneses Pathology: other (Antral gastritis) Condition: stable Disposition: PACU Description of Procedure: The patient's placed on the endoscopy table in the lateral position. She received IV sedation. The gastroscope placed oropharynx passed in the esophagus and into the stomach. Scope was then placed through the pylorus. The first and second portion of the duodenum appeared normal. Scope was then brought back the antrum and this appeared mildly inflamed. A biopsy was performed. The scope was unretroflexed and remainder of the stomach appeared normal. There is a very small hiatal hernia. The GE junction was at 47 is. It appears that there was a small pouch of stomach above the fundoplication wrap. This was suggestive of a displaced fundal plication wrap. The distal esophagus. Normal. The proximal esophagus. Normal. Scope was withdrawn for patient.
[2018-09-16 11:36] VITALS: BP 127/81; PULSE 69; RESP 16
== END 2018-09-16 11:55 | disposition home or self-care (01) ==
LOC: ORWHC2ENDO 09:17
PROVIDERS: ATTEND Surgery
DX: K44.9 Diaphragmatic hernia without obstruction or gangrene (principal); K31.9 Disease of stomach and duodenum, unspecified; M79.7 Fibromyalgia; K21.9 Gastro-esophageal reflux disease without esophagitis; R13.10 Dysphagia, unspecified; E78.5 Hyperlipidemia, unspecified; I10 Essential (primary) hypertension; M19.90 Unspecified osteoarthritis, unspecified site; Z87.01 Personal history of pneumonia (recurrent); G47.30 Sleep apnea, unspecified; K29.70 Gastritis, unspecified, without bleeding; G35 Multiple sclerosis; G25.81 Restless legs syndrome; I69.354 Hemiplegia and hemiparesis following cerebral infarction affecting left non-dominant side; K57.32 Diverticulitis of large intestine without perforation or abscess without bleeding; Z90.49 Acquired absence of other specified parts of digestive tract; Z90.710 Acquired absence of both cervix and uterus; Z80.8 Family history of malignant neoplasm of other organs or systems; Z80.3 Family history of malignant neoplasm of breast; Z79.82 Long term (current) use of aspirin; Z79.899 Other long term (current) drug therapy
CPT/HCPCS: 88305; 43239; J2250; J3010; J2704

== ENCOUNTER 2018-09-21 05:52 | Inpatient (IN) | payer MEDICARE, OTHER ==
[~2018-09-21 05:52] MED LIST changes: +DEXAMETHASONE SOD PHOSPHATE 10 MG/ML 1 ML VIAL IV ONE; +HEPARIN SODIUM,PORCINE 5,000 UNIT/ML 1 ML VIAL SQ ONE; -LACTATED RINGERS 1,000 ML IV SCH; +ONDANSETRON 4 MG/2 ML VIAL IVP ONE; +ONDANSETRON 4 MG/2 ML VIAL IVP PRN
[2018-09-21] MEDS: LACTATED RINGERS 1,000 ML IV SCH (06:23)
[2018-09-21] MEDS ORDERED: BUPIVACAINE (PF) 0.5% 30 ML VIAL SQ ONE ×2 (07:27→08:57)
[2018-09-21] MEDS ORDERED: LIDOCAINE 1% INJ 10MG/ML (20 ML MDV) ONE (07:54)
[2018-09-21] MEDS ORDERED: MORPHINE SULFATE 10 MG/ML SYRINGE ONE (07:54)
[2018-09-21] MEDS ORDERED: ROCURONIUM BROMIDE 10 MG/ML 10 ML VIAL IV ONE (07:54)
[2018-09-21] MEDS ORDERED: GLYCOPYRROLATE 0.2 MG/ML 2 ML VIAL ONE (07:54)
[2018-09-21] MEDS ORDERED: MIDAZOLAM 2 MG/2 ML VIAL ONE (07:54)
[2018-09-21] MEDS ORDERED: fentaNYL (PF) 50 MCG/ML 2 ML AMP ONE (07:54)
[2018-09-21] MEDS ORDERED: PROPOFOL 10 MG/ML 20 ML VIAL IV ONE (07:54)
[2018-09-21] MEDS ORDERED: SUCCINYLCHOLINE CHLORIDE 100 MG/5 ML SYR IV ONE (07:54)
[2018-09-21] MEDS ORDERED: KETOROLAC 30 MG/ML 1 ML VIAL ONE (07:54)
[2018-09-21] MEDS ORDERED: NEOSTIGMINE 1 MG/ML 10 ML VIAL ONE (07:54)
--- NOTE | 2018-09-21 08:02 | P.GSHP ---
History of Present Illness H&P Date: 09/21/18 Chief Complaint: Incisional hernia This is a 68-year-old female who presents today for open repair of recurrent incisional hernia. Patient has had a previous incisional hernia repair. Patient developed a bulge near her umbilicus. She was seen [place] found have a reducible recurrent incisional hernia. Past Medical History Past Medical History: CVA/TIA, Fibromyalgia, GERD/Reflux, Hyperlipidemia, Hypertension, Musculoskeletal Disorder, Pneumonia, Sleep Apnea/CPAP/BIPAP Additional Past Medical History / Comment(s): NO CPAP, HX OF MS, hx VERTIGO AND HAS HAD FALLS, RESTLESS LEG, SLIGHT LEFT SIDED WEAKNESS FROM TIA, hx diverticulitis, History of Any Multi-Drug Resistant Organisms: None Reported Past Surgical History: Appendectomy, Bowel Resection, Breast Surgery, Cholecystectomy, Hernia Repair, Hysterectomy, Orthopedic Surgery Additional Past Surgical History / Comment(s): RIGHT BREAST BIOPSY,CARPAL TUNNEL THELMA.,RT WRIST thumb joing replacement, BONE SPUR REMOVED FROM PELVIS, SURG FOR ACID REFLUX, HEMORRHOIDECTOMY, THELMA CATARACTS, recent incisional hernia surgery, endoscopy09/16/2018 Past Anesthesia/Blood Transfusion Reactions: No Reported Reaction Past Psychological History: No Psychological Hx Reported Smoking Status: Never smoker Past Alcohol Use History: None Reported Past Drug Use History: None Reported - Past Family History Father Additional Family Medical History / Comment(s): at age 30- drowning Son(s) Family Medical History: Cancer Additional Family Medical History / Comment(s): MELENOMA Sister(s) Family Medical History: Cancer Additional Family Medical History / Comment(s): BREAST Mother Family Medical History: Deep Vein Thrombosis (DVT), Pulmonary Embolus Medications and Allergies Home Medications Medication Instructions Recorded Confirmed Type Famotidine [Pepcid] 20 mg PO BID 06/13/14 09/21/18 History Lansoprazole 30 mg PO QAM 06/13/14 09/21/18 History rOPINIRole HCL [Requip] 0.5 mg PO HS 04/26/16 09/21/18 History Primidone [Mysoline] 25 mg PO W/SUPPER 10/18/16 09/21/18 History oxyCODONE HCL [Roxicodone] 15 mg PO TID PRN 10/18/16 09/21/18 History Baclofen 10 mg PO BID 05/19/17 09/21/18 History Aspirin EC [Ecotrin Low Dose] 81 mg PO DAILY 05/10/18 09/21/18 History Atorvastatin [Lipitor] 40 mg PO DAILY 05/10/18 09/21/18 History Celecoxib [CeleBREX] 200 mg PO BID 05/10/18 09/21/18 History DULoxetine HCL [Cymbalta] 60 mg PO DAILY 05/10/18 09/21/18 History Ezetimibe [Zetia] 10 mg PO DAILY 05/10/18 09/21/18 History Fluticasone Nasal [place] [Flonase 1 spray EA NOSTRIL BID 05/10/18 09/21/18 History Nasal [place]] Ampyra 1 tab PO HS 09/14/18 09/21/18 History Perampanel [Fycompa] 8 mg PO HS 09/14/18 09/21/18 History Allergies Allergy/AdvReac Type Severity Reaction Status Date / Time No Known Allergies Allergy Verified 09/21/18 06:07 Surgical - Exam Vital Signs Temp Pulse Resp BP Pulse Ox 97.7 F 74 16 153/84 95 09/21/18 06:10 09/21/18 06:10 09/21/18 06:10 09/21/18 06:10 09/21/18 06:10 - General well developed, well nourished, no distress - Eyes PERRL - ENT normal pinna - Neck no masses - Respiratory normal expansion - Cardiovascular Rhythm: regular - Abdomen Incisional hernia located near the umbilicus. Abdomen: soft Assessment and Plan Assessment: Incisional hernia. We'll perform open repair.
[2018-09-21] MEDS: HYDROmorphone 0.5 MG/0.5 ML SYRINGE IVP PRN ×5 (09:11→15:12)
--- NOTE | 2018-09-21 09:29 | P.OP ---
Date of Procedure: 09/21/18 Preoperative Diagnosis: Recurrent incisional hernia Postoperative Diagnosis: Recurrent incisional hernia Procedure(s) Performed: (Repair of recurrent incisional hernia with mesh Anesthesia: CHANDLER Surgeon: Severo Meneses Estimated Blood Loss (ml): 10 Pathology: none sent Condition: stable Disposition: PACU Description of Procedure: The patient's placed on the operating table in the supine position. She received general anesthesia. Her abdomen was prepped and draped in usual s terile fashion. Patient had a hernia at the upper portion of her previous midline scar. The skin was incised and then using cautery and sharp dissection the hernia sac was dissected free. The fascia external oblique was exposed using left cautery. The hernia defect was. With interrupted 3-0 Ethibond suture. And then using #1 strep The fascia was oversewn. A 6 inch Prolene mesh was placed in the wound and secured the superior strep tacker. A DIGNA drains placed through separate stab incision and brought out through the skin and secured with 2-0 nylon suture. Rosario's fascia closed with 2-0 Vicryl. Skin was closed ed. Patient top she will was sent to recovery room stable condition.
[2018-09-21] MEDS ORDERED: LACTATED RINGERS 1,000 ML IV ONE (10:59)
[2018-09-21] MEDS ORDERED: ONDANSETRON 4 MG/2 ML VIAL IVP PRN (10:59)
[2018-09-21] MEDS ORDERED: NALOXONE 0.4 MG/ML 1 ML VIAL IV PRN (10:59)
[2018-09-21 11:45] VITALS: BMI 31.0
[2018-09-21] MEDS: HYDROcodone/APAP 5-325MG 1 EACH TAB PO PRN ×2 (11:48→18:27)
[2018-09-21] MEDS: KETOROLAC 30 MG/ML 1 ML VIAL IVP SCH ×2 (11:50→18:26)
[2018-09-21] MEDS ORDERED: PRIMIDONE 25 MG TAB PO SCH (20:30)
[2018-09-21] MEDS: BACLOFEN 10 MG TAB PO SCH (20:43)
[2018-09-21] MEDS: DOCUSATE 100 MG CAP PO SCH (20:43)
[2018-09-21] MEDS: PERAMPANEL 8 MG PO SCH (20:44)
[2018-09-21] MEDS: AMPYRA PO SCH (20:44)
[2018-09-21] MEDS: FLUTICASONE 50MCG/SPRAY NASAL 16GM EA NOSTRIL SCH (20:44)
--- NOTE | 2018-09-21 21:29 | P.CONS ---
History of Present Illness - Reason for Consult Consult date: 09/21/18 Medical management - Chief Complaint Repair of recurrent incisional hernia - History of Present Illness Patient is a 68-year-old female with a known history of CVA/TIA, fibromyalgia, history of multiple sclerosis, hypertension, hyperlipidemia and obstructive sleep apnea and recent incisional hernia surgery and prior history of bowel resection was admitted to the hospital for repair of incisional hernia which is recurrent. Patient tolerated the procedure very well. Currently abdominal pain is fairly controlled. Denied any complaints of nausea. No chest pain or shortness of breath. No fever no chills. No headache or dizziness or lightheadedness. Laboratory data is not available at this time. Blood pressure is on the lower side. Review of Systems Constitutional: Patient denies any fever or chills . No generalized weakness or weight loss. Abdomen: Patient denied nausea vomiting and diarrhea . Patient does have abdominal pain. Cardiovascular: Patient denies any chest pain or short of breath no palpitations. Respiratory: patient denied any cough is from production. No shortness of breath Neurologic: Patient denied any numbness or tingling headache. Musculoskeletal: Patient denies any complaints of joint swelling or deformity. Skin: Negative Psychiatric: Negative Endocrine: No heat or cold intolerance. No recent weight gain. Genitourinary: No dysuria or hematuria. All other 14 point ROS negative except the above Past Medical History Past Medical History: CVA/TIA, Fibromyalgia, GERD/Reflux, Hyperlipidemia, Hypertension, Musculoskeletal Disorder, Pneumonia, Sleep Apnea/CPAP/BIPAP Additional Past Medical History / Comment(s): NO CPAP, HX OF MS, hx VERTIGO AND HAS HAD FALLS, RESTLESS LEG, SLIGHT LEFT SIDED WEAKNESS FROM TIA, hx diverticulitis, History of Any Multi-Drug Resistant Organisms: None Reported Past Surgical History: Appendectomy, Bowel Resection, Breast Surgery, Cholecystectomy, Hernia Repair, Hysterectomy, Orthopedic Surgery Additional Past Surgical History / Comment(s): RIGHT BREAST BIOPSY,CARPAL TUNNEL THELMA.,RT WRIST thumb joing replacement, BONE SPUR REMOVED FROM PELVIS, SURG FOR ACID REFLUX, HEMORRHOIDECTOMY, THELMA CATARACTS, recent incisional hernia surgery X3, endoscopy09/16/2018 Past Anesthesia/Blood Transfusion Reactions: No Reported Reaction Past Psychological History: No Psychological Hx Reported Smoking Status: Never smoker Past Alcohol Use History: None Reported Past Drug Use History: None Reported - Past Family History Father Additional Family Medical History / Comment(s): at age 30- drowning Son(s) Family Medical History: Cancer Additional Family Medical History / Comment(s): MELENOMA Sister(s) Family Medical History: Cancer Additional Family Medical History / Comment(s): BREAST Mother Family Medical History: Deep Vein Thrombosis (DVT), Pulmonary Embolus Medications and Allergies Home Medications Medication Instructions Recorded Confirmed Type Famotidine [Pepcid] 20 mg PO BID 06/13/14 09/21/18 History Lansoprazole 30 mg PO QAM 06/13/14 09/21/18 History rOPINIRole HCL [Requip] 0.5 mg PO HS 04/26/16 09/21/18 History Primidone [Mysoline] 25 mg PO W/SUPPER 10/18/16 09/21/18 History oxyCODONE HCL [Roxicodone] 15 mg PO TID PRN 10/18/16 09/21/18 History Baclofen 10 mg PO BID 05/19/17 09/21/18 History Aspirin EC [Ecotrin Low Dose] 81 mg PO DAILY 05/10/18 09/21/18 History Atorvastatin [Lipitor] 40 mg PO DAILY 05/10/18 09/21/18 History Celecoxib [CeleBREX] 200 mg PO BID 05/10/18 09/21/18 History DULoxetine HCL [Cymbalta] 60 mg PO DAILY 05/10/18 09/21/18 History Ezetimibe [Zetia] 10 mg PO DAILY 05/10/18 09/21/18 History Fluticasone Nasal [place] [Flonase 1 spray EA NOSTRIL BID 05/10/18 09/21/18 History Nasal [place]] Ampyra 1 tab PO HS 09/14/18 09/21/18 History Perampanel [Fycompa] 8 mg PO HS 09/14/18 09/21/18 History Docusate [Colace] 100 mg PO BID #20 capsule 09/21/18 Rx HYDROcodone/APAP 5-325MG [[place] 1 tab PO Q6HR PRN #10 tab 09/21/18 Rx 5-325] Allergies Allergy/AdvReac Type Severity Reaction Status Date / Time No Known Allergies Allergy Verified 09/21/18 06:07 Physical Exam Vitals: Vital Signs Temp Pulse Resp BP Pulse Ox 09/21/18 13:15 52 L 122/76 09/21/18 13:00 62 130/85 09/21/18 12:45 56 L 148/75 09/21/18 12:30 61 108/70 09/21/18 12:15 59 L 117/74 09/21/18 12:00 54 L 122/74 09/21/18 11:52 16 09/21/18 11:30 97.9 F 56 L 16 133/79 94 L 09/21/18 11:00 59 L 16 128/78 97 09/21/18 10:45 57 L 16 127/72 97 09/21/18 10:30 56 L 16 126/71 98 09/21/18 10:15 53 L 16 131/75 98 09/21/18 10:00 56 L 16 136/76 97 09/21/18 09:45 60 16 140/74 97 09/21/18 09:30 53 L 16 113/71 97 09/21/18 09:15 69 16 113/69 95 09/21/18 09:10 97.8 F 78 16 118/72 95 09/21/18 06:10 97.7 F 74 16 153/84 95 Intake and Output 09/21/18 09/21/18 09/21/18 06:59 14:59 22:59 Intake Total 100 1350 Output Total 10 60 Balance 100 1340 -60 Intake: IV 100 1050 Intake, IV Titration 300 Amount Lactated Ringers 1,000 ml 300 @ 125 mls/min IV .Q8M ONE Rx#:[id number] Output: Drainage 60 Abdomen 60 Estimated Blood Loss 10 Other: Voiding Method Toilet # Voids 1 PHYSICAL EXAMINATION: Patient is lying in the bed comfortably, no acute distress, awake alert and oriented.. HEENT: Normocephalic. Neck is supple. Pupils reactive. Nostrils clear. Oral cavity is moist. Ears reveal no drainage. Neck reveals no JVD, carotid bruits, or thyromegaly. CHEST EXAMINATION: Trachea is central. Symmetrical expansion. Lung marr clear to auscultation and percussion. CARDIAC: Normal S1, S2 with no gallops. No murmurs ABDOMEN: Soft. Bowel sounds are sure. Surgical site is bandaged. Tenderness with palpation.. No organomegaly. No abdominal bruits. Extremities: reveal no edema. No clubbing or cyanosis Neurologically awake, alert, oriented x3 with well-coordinated movements. No focal deficits noted Skin: No rash or skin lesions. Psychiatric: Coperative. Nonsuicidal Musculoskeletal: No joint swelling or deformity. Normal range of motion. Assessment and Plan Assessment: Status post repair of recurrent abdominal incisional hernia. Postoperative day 0 Recent history of incisional hernia repair. History of multiple sclerosis Obstructive sleep apnea not on CPAP at home Fibromyalgia History of CVA/TIA left-sided weakness Hypertension Hyperlipidemia Diverticulitis DVT prophylaxis Plan: Patient be continued on IV hydration and pain management and bowel regimen along with DVT prophylaxis. Encourage incentive spirometry. Continue with home medications and current management. Follow up closely. Further recommendations based on the clinical course. Thank you for your consult. Time with Patient: Greater than 30
[2018-09-21] MEDS: PRIMIDONE 50 MG TAB PO SCH (22:02)
[2018-09-22] MEDS: HYDROcodone/APAP 5-325MG 1 EACH TAB PO PRN ×4 (00:03→17:54)
[2018-09-22] MEDS: KETOROLAC 30 MG/ML 1 ML VIAL IVP SCH ×5 (00:06→23:39)
[2018-09-22] MEDS: LACTATED RINGERS 1,000 ML IV SCH (05:33)
[2018-09-22] MEDS: ATORVASTATIN 40 MG TAB PO SCH (06:47)
[2018-09-22] MEDS: DOCUSATE 100 MG CAP PO SCH ×2 (06:48→21:24)
[2018-09-22] MEDS: FLUTICASONE 50MCG/SPRAY NASAL 16GM EA NOSTRIL SCH ×2 (06:48→21:25)
[2018-09-22] MEDS: ENOXAPARIN 40 MG/0.4 ML SYRINGE SQ SCH (06:48)
[2018-09-22] MEDS: BACLOFEN 10 MG TAB PO SCH ×2 (06:48→21:24)
[2018-09-22] MEDS: DULoxetine HCL 60 MG CAPSULE.DR PO SCH (06:48)
[2018-09-22] MEDS: EZETIMIBE 10 MG TAB PO SCH (06:48)
[2018-09-22 07:53] LABS: Basophils % (A) 0 %; Eosinophils % (A) 0 %; HCT 32.7 % (34.0-46.0); HGB 10.5 gm/dL (11.4-16.0); Lymphocytes # (A) 1.1 k/uL (1.0-4.8); Lymphocytes % (A) 8 %; MCH 29.8 pg (25.0-35.0); MCHC 32.1 g/dL (31.0-37.0); MCV 92.8 fL (80.0-100.0); Mean Platelet Volume 7.4; Monocytes # (A) 0.7 k/uL (0-1.0); Monocytes % (A) 5 %; Neutrophils # (A) 11.3 k/uL (1.3-7.7); Neutrophils % (A) 86 %; Platelet Count 281 k/uL (150-450); RBC 3.52 m/uL (3.80-5.40); RDW 14.2 % (11.5-15.5); WBC 13.2 k/uL (3.8-10.6)
[2018-09-22 08:04] LABS: Calcium 8.8 mg/dL (8.4-10.2); Potassium 4.3 mmol/L (3.5-5.1)
[2018-09-22] MEDS ORDERED: ONDANSETRON 4 MG/2 ML VIAL IVP PRN (08:58)
[2018-09-22] MEDS ORDERED: METOCLOPRAMIDE 5 MG/ML 2 ML VIAL IVP STA (08:58)
[2018-09-22] MEDS: HYDROmorphone 0.5 MG/0.5 ML SYRINGE IVP PRN (09:27)
--- NOTE | 2018-09-22 12:19 | P.PN ---
Subjective Progress Note Date: 09/22/18 CHIEF COMPLAINT: recurrent incisional hernia HISTORY OF PRESENT ILLNESS: 68-year-old female who is status post repair of recurrent incisional hernia with mesh. Postoperative day #1. Patient examined this with bedside. Patient reports significant pain to right upper quadrant. Patient has recently received Toradol and [place]. She reports passing flatus. Denies bowel movement. Patient reports eating a regular breakfast. She is now feeling nauseous and has a basin in her lap. WBC 13.2. Hemoglobin 10.5. PHYSICAL EXAM: VITAL SIGNS: Reviewed. GENERAL: Well-developed in no acute distress. HEENT: No sclera icterus. Extraocular movements grossly intact. Moist buccal mucosa. Head is atraumatic, normocephalic. ABDOMEN: Soft. Nondistended. dressing clean dry and intact. Abdominal binder present. Hypoactive bowel sounds. DIGNA drain with minimal serosanguineous drainage NEUROLOGIC: Alert and oriented. Cranial nerves II through XII grossly intact. ASSESSMENT: 1. Status post repair of recurrent incisional hernia with mesh PLAN: 1. Downgrade diet to full liquid secondary to nausea 2. Reglan 10mg x 1 dose now 3. Continue zofran 4. Pain control 5. Incentive spirometry 6. Activity as tolerated 7. Discharge held today secondary to nausea and inadequate pain control. Will reassess tomorrow for discharge home Nurse practitioner note has been reviewed by physician. Signing provider agrees with the documented findings, assessment, and plan of care. Objective - Vital Signs Vital signs: Vital Signs Temp 97.6 F 09/22/18 07:31 Pulse 54 L 09/22/18 10:25 Resp 19 09/22/18 10:25 BP 130/78 09/22/18 07:31 Pulse Ox 96 09/22/18 07:31 Intake & Output 09/21/18 09/22/18 09/22/18 18:59 06:59 18:59 Intake Total 1350 1500 140 Output Total 70 45 Balance 1280 1455 140 Intake: IV 1050 Intake, IV Titration 300 1500 Amount Lactated Ringers 1,000 ml 300 1500 @ 125 mls/min IV .Q8M ONE Rx#:[id number] Oral 140 Output: Drainage 60 45 Abdomen 60 45 Estimated Blood Loss 10 Other: Voiding Method Toilet Toilet Toilet # Voids 1 2 - Labs CBC & Chem 7: 09/22/18 06:37 09/22/18 06:37 Labs: Abnormal Lab Results - Last 24 Hours (Table) 09/22/18 09/22/18 Range/Units 06:37 06:37 WBC 13.2 H (3.8-10.6) k/uL RBC 3.52 L (3.80-5.40) m/uL Hgb 10.5 L (11.4-16.0) gm/dL Hct 32.7 L (34.0-46.0) % Neutrophils # 11.3 H (1.3-7.7) k/uL Glucose 112 H (74-99) mg/dL
[2018-09-22] MEDS: PRIMIDONE 50 MG TAB PO SCH (17:48)
[2018-09-22] MEDS: AMPYRA PO SCH (21:40)
[2018-09-22] MEDS: PERAMPANEL 8 MG PO SCH (21:41)
--- NOTE | 2018-09-23 01:58 | P.PN ---
Subjective Progress Note Date: 09/22/18 Principal diagnosis: Status post abdominal recurrent incisional hernia repair Patient is a 68-year-old female with a known history of CVA/TIA, fibromyalgia, history of multiple sclerosis, hypertension, hyperlipidemia and obstructive sleep apnea and recent incisional hernia surgery and prior history of bowel resection was admitted to the hospital for repair of incisional hernia which is recurrent. Patient tolerated the procedure very well. Currently abdominal pain is fairly controlled. Denied any complaints of nausea. No chest pain or shortness of breath. No fever no chills. No headache or dizziness or lightheadedness. Laboratory data is not available at this time. Blood pressure is on the lower side. 09/22/2018 Patient is complaining of nausea today and has episode of vomiting. Abdominal pain is fairly controlled. Otherwise patient is able to pass flatus. Denied any bowel movement today. No chest pain or shortness of breath. No fever no chills. Patient does have slight leukocytosis with WBC count 13.2 and hemoglobin level is 10.5 now. No headache or dizziness or lightheadedness. Anticipate discharge in next 24 hours with more clinical improvement. Currently on liquid diet. Current medications reviewed. Objective - Vital Signs Vital signs: Vital Signs Temp 98.4 F 09/22/18 20:36 Pulse 67 09/22/18 20:36 Resp 18 09/22/18 23:39 BP 130/76 09/22/18 20:36 Pulse Ox 90 L 09/22/18 20:36 Intake & Output 09/22/18 09/22/18 09/23/18 06:59 18:59 06:59 Intake Total 1500 720 260 Output Total 45 30 20 Balance 1455 690 240 Intake: Intake, IV Titration 1500 400 60 Amount Lactated Ringers 1,000 ml 1500 @ 125 mls/min IV .Q8M ONE Rx#:[id number] Lactated Ringers 1,000 ml 400 60 @ 20 mls/hr IV .Q24H [facility] Rx#:[id number] Oral 320 200 Output: Drainage 45 30 20 Abdomen 45 30 20 Other: Voiding Method Toilet Toilet Toilet # Voids 2 2 1 - Exam PHYSICAL EXAMINATION: Patient is lying in the bed comfortably, no acute distress, awake alert and oriented.. HEENT: Normocephalic. Neck is supple. Pupils reactive. Nostrils clear. Oral cavi ty is moist. Ears reveal no drainage. Neck reveals no JVD, carotid bruits, or thyromegaly. CHEST EXAMINATION: Trachea is central. Symmetrical expansion. Lung marr clear to auscultation and percussion. CARDIAC: Normal S1, S2 with no gallops. No murmurs ABDOMEN: Soft. Bowel sounds present. Surgical site is bandaged. Tenderness with palpation.. No organomegaly. No abdominal bruits. Extremities: reveal no edema. No clubbing or cyanosis Neurologically awake, alert, oriented x3 with well-coordinated movements. No focal deficits noted Skin: No rash or skin lesions. Psychiatric: Coperative. Nonsuicidal Musculoskeletal: No joint swelling or deformity. Normal range of motion. - Labs CBC & Chem 7: 09/22/18 06:37 09/22/18 06:37 Labs: Abnormal Lab Results - Last 24 Hours (Table) 09/22/18 09/22/18 Range/Units 06:37 06:37 WBC 13.2 H (3.8-10.6) k/uL RBC 3.52 L (3.80-5.40) m/uL Hgb 10.5 L (11.4-16.0) gm/dL Hct 32.7 L (34.0-46.0) % Neutrophils # 11.3 H (1.3-7.7) k/uL Glucose 112 H (74-99) mg/dL Assessment and Plan Assessment: Status post repair of recurrent abdominal incisional hernia. Postoperative day 1 Recent history of incisional hernia repair. History of multiple sclerosis Obstructive sleep apnea not on CPAP at home Fibromyalgia History of CVA/TIA left-sided weakness Hypertension Hyperlipidemia Diverticulitis GI and DVT prophylaxis Plan: Patient be continued on gentle IV hydration and pain management and bowel reg imen along with DVT prophylaxis. Encourage incentive spirometry. Continue with home medications and current management. Follow up closely. Further recommendations based on the clinical course. Time with Patient: Greater than 30
[2018-09-23] MEDS: FAMOTIDINE 20 MG/2 ML VIAL IV SCH ×2 (02:09→10:19)
[2018-09-23] MEDS: LACTATED RINGERS 1,000 ML IV SCH (05:23)
[2018-09-23] MEDS: KETOROLAC 30 MG/ML 1 ML VIAL IVP SCH (05:23)
[2018-09-23 09:11] LABS: Basophils % (A) 0 %; Eosinophils # (A) 0.2 k/uL (0-0.7); Eosinophils % (A) 2 %; HCT 33.6 % (34.0-46.0); Lymphocytes # (A) 1.6 k/uL (1.0-4.8); Lymphocytes % (A) 17 %; MCH 30.5 pg (25.0-35.0); MCHC 32.8 g/dL (31.0-37.0); Mean Platelet Volume 7.7; Monocytes # (A) 0.7 k/uL (0-1.0); Monocytes % (A) 7 %; Neutrophils # (A) 6.7 k/uL (1.3-7.7); Neutrophils % (A) 73 %; Platelet Count 239 k/uL (150-450); RBC 3.61 m/uL (3.80-5.40); RDW 14.6 % (11.5-15.5); WBC 9.2 k/uL (3.8-10.6)
[2018-09-23 09:13] LABS: Calcium 8.6 mg/dL (8.4-10.2); Potassium 3.9 mmol/L (3.5-5.1)
[2018-09-23] MEDS: ENOXAPARIN 40 MG/0.4 ML SYRINGE SQ SCH (10:15)
[2018-09-23] MEDS: FLUTICASONE 50MCG/SPRAY NASAL 16GM EA NOSTRIL SCH (10:16)
[2018-09-23] MEDS: EZETIMIBE 10 MG TAB PO SCH (10:16)
[2018-09-23] MEDS: DULoxetine HCL 60 MG CAPSULE.DR PO SCH (10:16)
[2018-09-23] MEDS: BACLOFEN 10 MG TAB PO SCH (10:16)
[2018-09-23] MEDS: DOCUSATE 100 MG CAP PO SCH (10:16)
[2018-09-23] MEDS: ATORVASTATIN 40 MG TAB PO SCH (10:16)
[2018-09-23] MEDS: HYDROcodone/APAP 5-325MG 1 EACH TAB PO PRN (10:19)
--- NOTE | 2018-09-23 12:03 | P.DS ---
Providers Expected date of discharge: 09/23/18 Attending physician: Severo Meneses Consults: 09/21/18 10:59 Consult Physician Routine Consulting Provider: Mikal Wasserman Consult Reason/Comments: medical management Do you want consulting provider notified?: Yes Primary care physician: Omid Hunter Hospital Course: 68-year-old female who is status post repair of recurrent incisional hernia with mesh. patient is doing well postoperatively without any immediate complications. Patient is tolerating diet.pain is controlled on oral medications. Vital signs and stable. She is afebrile. She is stable for discharge home today. Please see EMR for further hospital course details. discharge diagnosis 1. Status post repair of recurrent incisional hernia with mesh Nurse practitioner note has been reviewed by physician. Signing provider agrees with the documented findings, assessment, and plan of care. Plan - Discharge Summary Discharge Rx Participant: Yes New Discharge Prescriptions: New Docusate [Colace] 100 mg PO BID #20 capsule HYDROcodone/APAP 5-325MG [[place] 5-325] 1 tab PO Q6HR PRN #10 tab PRN Reason: Pain No Action Famotidine [Pepcid] 20 mg PO BID Lansoprazole 30 mg PO QAM rOPINIRole HCL [Requip] 0.5 mg PO HS Primidone [Mysoline] 25 mg PO W/SUPPER oxyCODONE HCL [Roxicodone] 15 mg PO TID PRN PRN Reason: Pain Baclofen 10 mg PO BID Fluticasone Nasal [place] [Flonase Nasal [place]] 1 spray EA NOSTRIL BID Ezetimibe [Zetia] 10 mg PO DAILY DULoxetine HCL [Cymbalta] 60 mg PO DAILY Atorvastatin [Lipitor] 40 mg PO DAILY Celecoxib [CeleBREX] 200 mg PO BID Aspirin EC [Ecotrin Low Dose] 81 mg PO DAILY Perampanel [Fycompa] 8 mg PO HS Ampyra 1 tab PO HS Discharge Medication List Famotidine [Pepcid] 20 mg PO BID 06/13/14 [History] Lansoprazole 30 mg PO QAM 06/13/14 [History] rOPINIRole HCL [Requip] 0.5 mg PO HS 04/26/16 [History] Primidone [Mysoline] 25 mg PO W/SUPPER 10/18/16 [History] oxyCODONE HCL [Roxicodone] 15 mg PO TID PRN 10/18/16 [History] Baclofen 10 mg PO BID 05/19/17 [History] Aspirin EC [Ecotrin Low Dose] 81 mg PO DAILY 05/10/18 [History] Atorvastatin [Lipitor] 40 mg PO DAILY 05/10/18 [History] Celecoxib [CeleBREX] 200 mg PO BID 05/10/18 [History] DULoxetine HCL [Cymbalta] 60 mg PO DAILY 05/10/18 [History] Ezetimibe [Zetia] 10 mg PO DAILY 05/10/18 [History] Fluticasone Nasal [place] [Flonase Nasal [place]] 1 spray EA NOSTRIL BID 05/10/18 [History] Ampyra 1 tab PO HS 09/14/18 [History] Perampanel [Fycompa] 8 mg PO HS 09/14/18 [History] Docusate [Colace] 100 mg PO BID #20 capsule 09/21/18 [Rx] HYDROcodone/APAP 5-325MG [[place] 5-325] 1 tab PO Q6HR PRN #10 tab 09/21/18 [Rx] Follow up Appointment(s)/Referral(s): Severo Meneses MD [STAFF PHYSICIAN] - 1 Week Activity/Diet/Wound Care/Special Instructions: No driving while taking [place] No lifting over 10 pounds You may shower. No soaking or tub baths Very light activity until you are reevaluated at your follow up appointment with your surgeon Discharge Disposition: HOME SELF-CARE
[2018-09-23 14:40] VITALS: BP 167/88; PULSE 71; RESP 14; TEMP 98.1
[2018-09-23] MEDS ORDERED: FAMOTIDINE 20 MG TAB PO SCH (21:00)
== END 2018-09-23 18:31 | disposition home or self-care (01) | DRG 355 ==
LOC: OR 05:52 → 4SSUR 11:05 → OR 09-23 15:37
PROVIDERS: ADMIT Surgery; ATTEND Surgery
PROC: 0WUF0JZ Supplement Abdominal Wall with Synthetic Substitute, Open Approach (ICD-10-PCS; principal; 2018-09-21 07:40)
DX: K43.2 Incisional hernia without obstruction or gangrene (principal); K21.9 Gastro-esophageal reflux disease without esophagitis; E78.5 Hyperlipidemia, unspecified; I10 Essential (primary) hypertension; M79.7 Fibromyalgia; G47.33 Obstructive sleep apnea (adult) (pediatric); G35 Multiple sclerosis; G25.81 Restless legs syndrome; Z79.1 Long term (current) use of non-steroidal anti-inflammatories (NSAID); Z79.82 Long term (current) use of aspirin; Z79.899 Other long term (current) drug therapy; Z90.49 Acquired absence of other specified parts of digestive tract; Z90.710 Acquired absence of both cervix and uterus; Z91.81 History of falling; Z86.73 Personal history of transient ischemic attack (TIA), and cerebral infarction without residual deficits; Z98.890 Other specified postprocedural states; Z98.42 Cataract extraction status, left eye; Z98.41 Cataract extraction status, right eye; Z87.01 Personal history of pneumonia (recurrent); Z80.3 Family history of malignant neoplasm of breast; Z80.8 Family history of malignant neoplasm of other organs or systems; Z82.49 Family history of ischemic heart disease and other diseases of the circulatory system
CPT/HCPCS: 80048; 85025

== ENCOUNTER 2018-12-19 16:26 | Emergency (ER) | payer MEDICARE, OTHER ==
[2018-12-19 16:31] VITALS: TEMP 98.2
[2018-12-19] MEDS ORDERED: SODIUM CHLORIDE 0.9% 500 ML 500 ML IV STA (16:48)
[2018-12-19] MEDS ORDERED: DIPH,PERTUS(ACELL)TETVAC-LF 0.5 ML VIAL IM ONE (16:48)
[2018-12-19] MEDS ORDERED: fentaNYL (PF) 50 MCG/ML 2 ML AMP IVP STA (16:49)
--- NOTE | 2018-12-19 17:13 | ED ---
General Adult HPI - General Chief complaint: Fall Stated complaint: Fell Time Seen by Provider: 12/19/18 16:44 Source: patient Mode of arrival: wheelchair Limitations: no limitations - History of Present Illness Initial comments: Dictation was produced using [employer] dictation software. please excuse any grammatical, word or spelling errors. Chief Complaint: 68-year-old female presents with left shoulder pain after fall from ladder. History of Present Illness: 68-year-old female proximal to 1 hour prior to arrival patient was taking down wallpaper and are better when she fell P patient states they have an fashion doesn't really recall how she fell. Patient states she fell striking her head and on an outstretched hand with her left upper extremity. Patient states she felt immediate pain to her left shoulder. Lisha ent is unclear if she lost any consciousness. Patient states she's really worried about her shoulder pain. She has lacerations to her head and arm. Does complain of some mild left wrist pain. She feels like her fingers are going numb. The ROS documented in this emergency department record has been reviewed and confirmed by me. Those systems with pertinent positive or negative responses have been documented in the HPI. All other systems are other negative and/or noncontributory. PHYSICAL EXAM: General Impression: Alert and oriented x3, not in acute distress HEENT: One similar laceration to the temporal area, extra-ocular movements intact, pupils equal and reactive to light bilaterally, mucous membranes moist. Cardiovascular: Heart regular rate and rhythm, S1&S2 audible, no murmurs, rubs or gallops Chest: Lungs clear to auscultation bilaterally, no rhonchi, no wheeze, no rales Abdomen: Bowel sounds present, abdomen soft, non-tender, non-distended, no organomegaly Musculoskeletal: Pulses present and equal in all extremities, no peripheral edema, pain at the left wrist, gross deformity at the left shoulder Motor: no focal deficits noted Neurological: CN II-XII grossly intact, no focal motor or sensory deficits noted Skin: Intact with no visualized rashes Psych: Normal affect and mood ED course: 44-year-old female presents after fall. As upon arrival shows heart rate of 26, rest of vital signs within acceptable limits. Abdomen evaluation obtained. Mild looks is 11.1 likely secondary to stress. Rest of CBC is unremarkable. Coag panel negative. Metabolic panel is unremarkable. Serum alcohol is negative. Pelvis x-rays unremarkable. Wrist x- ray is negative. Patient does not have any symptoms to the scaphoid. No snuffbox tenderness. 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 Patient has history of this and is seeing a hand specialist for outpatient procedure. Chest CT shows nondisplaced left humeral head greater tuberosity fracture with old left-sided healed rib fracture. Other genetic injuries noted. Shoulder x-ray shows anterior dislocation. Shoulder was reduced. Repeat films found adequate reduction. There is however, noted fracture to the greater tuberosity with comminution. Patient underwent successful reduction. Patient are vascularly intact status post reduction. Lacerations repaired please see laceration note for more detailed procedure note. Patient doesn't emergency Department with control of her symptoms. Patient told to remain nonweightbearing to the left upper extremity. She is placed in a sling. Discussed patient case with Dr. Edmondson. Patient told to follow up with orthopedic surgery upon discharge for fracture care. Patient told that she would need repeat x-rays of her wrist and 3-[address] Edmondson knows about patient's wrist pain and reports that the likelihood of scaphoid fracture along with greater tuberosity humerus fracture is very unlikely. Patient's wrist pain is likely secondary to osteoporosis arthritis at the thumb. EKG interpretation: Ventricular rate 77, sinus rhythm with sinus arrhythmia, UT interval 144, care 76, QTC 52. No UT prolongation, no QTC prolongation, no ST or T-wave changes noted. Overall, this EKG is unremarkable - Related Data Home Medications Medication Instructions Recorded Confirmed Famotidine [Pepcid] 20 mg PO BID 06/13/14 12/19/18 rOPINIRole HCL [Requip] 0.5 mg PO HS 04/26/16 12/19/18 oxyCODONE HCL [Roxicodone] 15 mg PO TID PRN 10/18/16 12/19/18 Baclofen 10 mg PO BID PRN 05/19/17 12/19/18 Atorvastatin [Lipitor] 40 mg PO HS 05/10/18 12/19/18 Ezetimibe [Zetia] 10 mg PO DAILY 05/10/18 12/19/18 Fluticasone Nasal [place] [Flonase 1 spray EA NOSTRIL BID 05/10/18 12/19/18 Nasal [place]] Hydrochlorothiazide 12.5 mg PO DAILY 12/19/18 12/19/18 Omeprazole 20 mg PO DAILY 12/19/18 12/19/18 Previous Rx's Medication Instructions Recorded oxyCODONE HCL/ACETAMINOPHEN 1 tab PO Q6HR PRN 3 Days #12 tab 12/19/18 [Percocet 5-325 mg] Allergies Allergy/AdvReac Type Severity Reaction Status Date / Time No Known Allergies Allergy Verified 12/19/18 16:31 Review of Systems ROS Statement: Those systems with pertinent positive or pertinent negative responses have been documented in the HPI. ROS Other: All systems not noted in ROS Statement are negative. Past Medical History Past Medical History: CVA/TIA, Fibromyalgia, GERD/Reflux, Hyperlipidemia, Hypertension, Musculoskeletal Disorder, Pneumonia, Sleep Apnea/CPAP/BIPAP Additional Past Medical History / Comment(s): NO CPAP, HX OF MS, hx VERTIGO AND HAS HAD FALLS, RESTLESS LEG, SLIGHT LEFT SIDED WEAKNESS FROM TIA, hx diverticulitis, History of Any Multi-Drug Resistant Organisms: None Reported Past Surgical History: Appendectomy, Bowel Resection, Breast Surgery, Cholecystectomy, Hernia Repair, Hysterectomy, Orthopedic Surgery Additional Past Surgical History / Comment(s): RIGHT BREAST BIOPSY,CARPAL TUNNEL THELMA.,RT WRIST thumb joing replacement, BONE SPUR REMOVED FROM PELVIS, SURG FOR ACID REFLUX, HEMORRHOIDECTOMY, THELMA CATARACTS, recent incisional hernia surgery X3, endoscopy09/16/2018 Past Anesthesia/Blood Transfusion Reactions: No Reported Reaction Past Psychological History: No Psychological Hx Reported Smoking Status: Never smoker Past Alcohol Use History: None Reported Past Drug Use History: None Reported - Past Family History Father Additional Family Medical History / Comment(s): at age 30- drowning Son(s) Family Medical History: Cancer Additional Family Medical History / Comment(s): MELENOMA Sister(s) Family Medical History: Cancer Additional Family Medical History / Comment(s): BREAST Mother Family Medical History: Deep Vein Thrombosis (DVT), Pulmonary Embolus General Exam Limitations: no limitations Course Vital Signs 12/19/18 12/19/18 12/19/18 16:29 17:30 18:00 Temperature 98.2 F Pulse Rate 66 71 Respiratory 20 Rate Blood Pressure 112/60 134/85 134/87 O2 Sat by Pulse 97 98 100 Oximetry 12/19/18 12/19/18 12/19/18 18:21 18:23 18:28 Temperature Pulse Rate 73 77 75 Respiratory 18 16 17 Rate Blood Pressure 174/97 170/110 171/105 O2 Sat by Pulse 100 94 L 100 Oximetry 12/19/18 12/19/18 12/19/18 18:33 18:38 18:43 Temperature Pulse Rate 81 81 75 Respiratory 17 20 17 Rate Blood Pressure 155/100 170/107 175/99 O2 Sat by Pulse 100 99 99 Oximetry 12/19/18 12/19/18 12/19/18 18:58 19:13 19:28 Temperature Pulse Rate 75 84 82 Respiratory 18 17 18 Rate Blood Pressure 162/96 170/101 164/99 O2 Sat by Pulse 100 100 100 Oximetry Procedures - Laceration Laceration #1 Consent Obtained: verbal consent Indication: laceration Site: face Description: linear Depth: simple, single layer Anesthetic Used: lidocaine 1%, with epi Anesthesia Technique: local infiltration Pre-repair: wound explored, irrigated extensively Type of Sutures: nylon Size of Sutures: 6-0 Technique: simple, interrupted Patient Tolerated Procedure: well Laceration #2 Consent Obtained: verbal consent Indication: laceration Site: hand Description: linear Depth: simple, single layer Anesthetic Used: lidocaine 1%, with epi Anesthesia Technique: local infiltration Size of Sutures: 4-0 Technique: running Patient Tolerated Procedure: well - Orthopedic Joint Reduction Joint #1 Consent Obtained: verbal consent, written consent Side: left Joint Reduction Location: shoulder Analgesia: procedural sedation Shoulder Technique Used (if applicable): traction/counter-traction Technique Used: traction/counter-traction Post-Reduction Neuro Exam: intact Post-Reduction Vascular Exam: intact Post Reduction X-Ray Obtained: Yes Post Reduction X-Ray Results: reduced Splint Applied: Yes Patient Tolerated Procedure: well - Procedural Sedation Procedural Sedation Start Time: 06:15 Procedural Sedation Stop Time: 06:43 Indications: fracture/dislocation reduction ASA Class: II Mallampati Airway Score: 2 Preparation: sediment remediation consultant applied, pulse oximeter, capnometry used, supplemental O2 applied, suction/airway equipment at bedside IV Propofol Dose (mgs): 150 Complications: none Patient Tolerated Procedure: well Medical Decision Making - Lab Data Result diagrams: 12/19/18 16:59 12/19/18 16:59 Lab Results 12/19/18 12/19/18 12/19/18 Range/Units 16:59 16:59 16:59 WBC 11.1 H (3.8-10.6) k/uL RBC 3.97 (3.80-5.40) m/uL Hgb 12.7 (11.4-16.0) gm/dL Hct 36.2 (34.0-46.0) % MCV 91.2 (80.0-100.0) fL MCH 31.9 (25.0-35.0) pg MCHC 35.0 (31.0-37.0) g/dL RDW 13.5 (11.5-15.5) % Plt Count 313 (150-450) k/uL Neutrophils % 53 % Lymphocytes % 39 % Monocytes % 5 % Eosinophils % 1 % Basophils % 0 % Neutrophils # 5.8 (1.3-7.7) k/uL Lymphocytes # 4.3 (1.0-4.8) k/uL Monocytes # 0.6 (0-1.0) k/uL Eosinophils # 0.1 (0-0.7) k/uL Basophils # 0.1 (0-0.2) k/uL PT 9.5 (9.0-12.0) sec INR 0.9 (<1.2) APTT 20.5 L (22.0-30.0) sec Sodium 139 (137-145) mmol/L Potassium 3.6 (3.5-5.1) mmol/L Chloride 105 (98-107) mmol/L Carbon Dioxide 20 L (22-30) mmol/L Anion Gap 14 mmol/L BUN 14 (7-17) mg/dL Creatinine 0.81 (0.52-1.04) mg/dL Est GFR (CKD-EPI)AfAm 88 (>60 ml/min/1.73 sqM) Est GFR (CKD-EPI)NonAf 76 (>60 ml/min/1.73 sqM) Glucose 163 H (74-99) mg/dL Calcium 9.4 (8.4-10.2) mg/dL Total Bilirubin 0.5 (0.2-1.3) mg/dL AST 22 (14-36) U/L ALT 23 (9-52) U/L Alkaline Phosphatase 101 (38-126) U/L Troponin I (0.000-0.034) ng/mL Total Protein 6.7 (6.3-8.2) g/dL Albumin 4.1 (3.5-5.0) g/dL Serum Alcohol <10 mg/dL Blood Type Blood Type Recheck Bld Type Recheck Status Antibody Screen Spec Expiration Date 12/19/18 12/19/18 Range/Units 16:59 16:59 WBC (3.8-10.6) k/uL RBC (3.80-5.40) m/uL Hgb (11.4-16.0) gm/dL Hct (34.0-46.0) % MCV (80.0-100.0) fL MCH (25.0-35.0) pg MCHC (31.0-37.0) g/dL RDW (11.5-15.5) % Plt Count (150-450) k/uL Neutrophils % % Lymphocytes % % Monocytes % % Eosinophils % % Basophils % % Neutrophils # (1.3-7.7) k/uL Lymphocytes # (1.0-4.8) k/uL Monocytes # (0-1.0) k/uL Eosinophils # (0-0.7) k/uL Basophils # (0-0.2) k/uL PT (9.0-12.0) sec INR (<1.2) APTT (22.0-30.0) sec Sodium (137-145) mmol/L Potassium (3.5-5.1) mmol/L Chloride (98-107) mmol/L Carbon Dioxide (22-30) mmol/L Anion Gap mmol/L BUN (7-17) mg/dL Creatinine (0.52-1.04) mg/dL Est GFR (CKD-EPI)AfAm (>60 ml/min/1.73 sqM) Est GFR (CKD-EPI)NonAf (>60 ml/min/1.73 sqM) Glucose (74-99) mg/dL Calcium (8.4-10.2) mg/dL Total Bilirubin (0.2-1.3) mg/dL AST (14-36) U/L ALT (9-52) U/L Alkaline Phosphatase (38-126) U/L Troponin I <0.012 (0.000-0.034) ng/mL Total Protein (6.3-8.2) g/dL Albumin (3.5-5.0) g/dL Serum Alcohol mg/dL Blood Type O Positive Blood Type Recheck O Pos Bld Type Recheck Status No Antibody Screen NEGATIVE Spec Expiration Date 12/22/2018 - 235 Disposition Clinical Impression: Fall, Head contusion, Humerus fracture Disposition: HOME SELF-CARE Condition: Good Instructions (If sedation given, give patient instructions): Fall Prevention for Older Adults (ED) Prescriptions: oxyCODONE HCL/ACETAMINOPHEN [Percocet 5-325 mg] 1 tab PO Q6HR PRN 3 Days #12 tab PRN Reason: Pain Is patient prescribed a controlled substance at d/c from ED?: Yes If prescribed controlled substance>3 days was MAPS reviewed?: Prescribed <3 Days Referrals: Tim Dior DO [Doctor of Osteopathic Medicine] - 1-2 days Time of Disposition: 20:58
[2018-12-19 17:15] LABS: Basophils # (A) 0.1 k/uL (0-0.2); Basophils % (A) 0 %; Eosinophils # (A) 0.1 k/uL (0-0.7); Eosinophils % (A) 1 %; HCT 36.2 % (34.0-46.0); HGB 12.7 gm/dL (11.4-16.0); Lymphocytes # (A) 4.3 k/uL (1.0-4.8); Lymphocytes % (A) 39 %; MCH 31.9 pg (25.0-35.0); MCV 91.2 fL (80.0-100.0); Mean Platelet Volume 6.3; Monocytes # (A) 0.6 k/uL (0-1.0); Monocytes % (A) 5 %; Neutrophils # (A) 5.8 k/uL (1.3-7.7); Neutrophils % (A) 53 %; Platelet Count 313 k/uL (150-450); RBC 3.97 m/uL (3.80-5.40); RDW 13.5 % (11.5-15.5); WBC 11.1 k/uL (3.8-10.6)
[2018-12-19 17:27] LABS: ALT 23 U/L (9-52); AST 22 U/L (14-36); African American GFR (CKD) 88 (>60 ml/min/1.73 sqM); Albumin 4.1 g/dL (3.5-5.0); Alcohol <10 mg/dL; Alkaline Phosphatase 101 U/L (38-126); Anion Gap 14 mmol/L; Blood Urea Nitrogen 14 mg/dL (7-17); Calcium 9.4 mg/dL (8.4-10.2); Carbon Dioxide 20 mmol/L (22-30); Chloride 105 mmol/L (98-107); Glucose 163 mg/dL (74-99); Potassium 3.6 mmol/L (3.5-5.1); Sodium 139 mmol/L (137-145); Total Bilirubin 0.5 mg/dL (0.2-1.3); Total Protein 6.7 g/dL (6.3-8.2)
[2018-12-19 17:38] LABS: INR 0.9 (<1.2); Partial Thromboplastin Time 20.5 sec (22.0-30.0); Prothrombin Time 9.5 sec (9.0-12.0)
--- NOTE | 2018-12-19 17:57 | XR ---
EXAMINATION TYPE: XR shoulder limited LT DATE OF EXAM: 12/19/2018 COMPARISON: Chest x-ray 05/10/2018 HISTORY: Pain TECHNIQUE: Single view FINDINGS: There is anterior dislocation of the left humeral head. I see no fracture line. IMPRESSION: Anterior left shoulder dislocation.
[2018-12-19] MEDS: PROPOFOL 10 MG/ML 20 ML VIAL IV ONE ×4 (18:22→18:36)
--- NOTE | 2018-12-19 18:53 | XR ---
EXAMINATION TYPE: XR shoulder complete LT DATE OF EXAM: 12/19/2018 COMPARISON: Today HISTORY: Post reduction TECHNIQUE: 2 views FINDINGS: There is significant reduction of the dislocated humeral head. Humeral head shows very slig ht anterior and inferior subluxation. Scapula is intact. I see no fracture. IMPRESSION: Humeral head is essentially in anatomic position. No fracture seen.
--- NOTE | 2018-12-19 18:58 | XR ---
EXAMINATION TYPE: XR shoulder limited LT DATE OF EXAM: 12/19/2018 COMPARISON: Today HISTORY: Post reduction TECHNIQUE: Single view FINDINGS: There is anatomic position of the humeral head. There is comminuted nondisplaced fractures of the greater tuberosity of the humerus. The AC joint is intact. Scapula is intact. IMPRESSION: There are acute fractures of the greater tuberosity of the humerus with comminution. Ther e is anatomic reduction of the glenohumeral joint.
[2018-12-19 19:36] VITALS: PULSE 82; RESP 18
--- NOTE | 2018-12-19 19:55 | CT ---
EXAMINATION TYPE: CT brain cspine wo con DATE OF EXAM: 12/19/2018 COMPARISON: CT brain 05/10/2018 HISTORY: Pt fall off ladder, hitting head on bathtub. Laceration to LT side of head Neck pain CT DLP: 1143 mGycm Automated exposure control for dose reduction was used. TECHNIQUE: CT scan of the head and cervical spine are performed without contrast. FINDINGS: Ventricles have normal size. There is no mass effect nor midline shift. There is no sign of intracranial hemorrhage. The calvarium is intact. Skull base is intact. Cervical vertebra have fairly normal spacing and alignment. Posterior elements are intact. Facet join ts are intact. There is mild hypertrophic facet arthropathy in the upper cervical spine. There is ant erior spurring at C3-4. There is no evidence of a fracture. IMPRESSION: Negative CT scan of the brain. No change. Negative CT scan cervical spine.
--- NOTE | 2018-12-19 20:01 | CT ---
EXAMINATION TYPE: CT chest wo con DATE OF EXAM: 12/19/2018 COMPARISON: CT chest 05/10/2018 HISTORY: Pt fall from ladder. LT shoulder dislocated. Ordering physician requesting LT shoulder evalu ated CT DLP: 417.8 mGycm. Automated Exposure Control for Dose Reduction was Utilized. TECHNIQUE: CT scan of the thorax is performed without IV contrast. FINDINGS: There is minimal atelectasis at the lung bases. There is no evidence of pleural effusion or pneumotho rax. There is nondisplaced fracture at the greater tuberosity of the left humerus. The scapula appear intact. There is minimal lateral left lower rib deformity consistent with old healed fracture. I see no acute rib fracture. Heart size is normal. There is no pericardial effusion. There are no hilar ma sses. There is no mediastinal adenopathy. Thoracic aorta appears intact. Ascending aorta measures 3.7 cm. There is no aneurysm. IMPRESSION: Nondisplaced left humeral head greater tuberosity fracture. Old left-sided healed rib fra cture. there is some scarring and subsegmental atelectasis in the lower lobes unchanged compared to old CT s can.
--- NOTE | 2018-12-19 20:14 | XR ---
EXAMINATION TYPE: XR wrist complete LT DATE OF EXAM: 12/19/2018 COMPARISON: NONE HISTORY: Wrist pain TECHNIQUE: 4 views FINDINGS: There is narrowing and spurring at the first carpometacarpal joint. There is slight deformi ty of the distal radius consistent with an old healed fracture. I see no acute fracture nor dislocati on. The carpal bones are intact. IMPRESSION: Osteoarthritis at the base of the thumb. No acute fracture seen.
--- NOTE | 2018-12-19 20:15 | XR ---
EXAMINATION TYPE: XR pelvis AP view DATE OF EXAM: 12/19/2018 COMPARISON: NONE HISTORY: Pain TECHNIQUE: Single view FINDINGS: Pelvic ring is intact. Proximal femurs and hip joints are intact. There are numerous phlebo liths in the pelvis. Sacroiliac joints appear intact. IMPRESSION: No acute abnormality of the pelvis.
[2018-12-19] MEDS ORDERED: MORPHINE SULFATE 4 MG/ML SYRINGE IV STA (20:44)
[2018-12-19 21:10] VITALS: BP 162/95
== END 2018-12-19 21:36 | disposition home or self-care (01) ==
LOC: EC 16:26
DX: S42.252A Displaced fracture of greater tuberosity of left humerus, initial encounter for closed fracture (principal); S43.005A Unspecified dislocation of left shoulder joint, initial encounter; S01.81XA Laceration without foreign body of other part of head, initial encounter; S61.412A Laceration without foreign body of left hand, initial encounter; M18.12 Unilateral primary osteoarthritis of first carpometacarpal joint, left hand; M25.532 Pain in left wrist; K21.9 Gastro-esophageal reflux disease without esophagitis; E78.5 Hyperlipidemia, unspecified; I10 Essential (primary) hypertension; G25.81 Restless legs syndrome; G35 Multiple sclerosis; Z79.51 Long term (current) use of inhaled steroids; Z79.899 Other long term (current) drug therapy; Z87.828 Personal history of other (healed) physical injury and trauma; Z96.631 Presence of right artificial wrist joint; Z23 Encounter for immunization; W11.XXXA Fall on and from ladder, initial encounter; Y93.89 Activity, other specified; Y92.009 Unspecified place in unspecified non-institutional (private) residence as the place of occurrence of the external cause
CPT/HCPCS: 99284; 23650; 12001; 12011; 99152; 99153; 96374; 96375; 96361 ×4; 90471; 36415; 86900; 86901; 80053; 84484; 85025; 85610; 85730; 86850; 72170; 73030; 73020; 73110; 72125; 70450; 71250; 90715; G0480; J2270; J3010; J2704; 80320

== ENCOUNTER → 2019-07-09 | Outpatient (CLI) | payer MEDICARE, OTHER | END | disposition home or self-care (01) | LOC: LABWHC1 11:19 | PROVIDERS: ATTEND Surgery | DX: U07.1 COVID-19 (principal) | CPT/HCPCS: 87635 ==

== ENCOUNTER 2019-07-12 07:47 | Day surgery (SDC) | payer MEDICARE, OTHER ==
[2019-07-09 12:27] VITALS: BMI 29.7
[~2019-07-12 07:47] MED LIST changes: -DEXAMETHASONE SOD PHOSPHATE 10 MG/ML 1 ML VIAL IV ONE; -HEPARIN SODIUM,PORCINE 5,000 UNIT/ML 1 ML VIAL SQ ONE; +LACTATED RINGERS 1,000 ML IV SCH; +LIDOCAINE 1% (10MG/ML) FOR IV START INTRADERMA PRN; -LIDOCAINE 1% 20 ML VIAL (10MG/ML) FOR IV START INTRADERMA PRN; -ONDANSETRON 4 MG/2 ML VIAL IVP ONE; -ONDANSETRON 4 MG/2 ML VIAL IVP PRN
[2019-07-12 08:01] VITALS: RESP 18; TEMP 97.8
[2019-07-12] MEDS ORDERED: LACTATED RINGERS 1,000 ML IV ONE (08:01)
[2019-07-12] MEDS ORDERED: PROPOFOL 10 MG/ML 20 ML VIAL IV ONE (09:25)
[2019-07-12] MEDS ORDERED: LIDOCAINE 1% INJ 10MG/ML (20 ML MDV) ONE (09:25)
--- NOTE | 2019-07-12 09:27 | P.GSHP ---
History of Present Illness H&P Date: 07/12/19 Chief Complaint: Dysphagia This a 69-year-old female presents today for EGD. She's had issues with dysphagia. Past Medical History Past Medical History: CVA/TIA, Fibromyalgia, GERD/Reflux, Hyperlipidemia, Hypertension, Musculoskeletal Disorder, Sleep Apnea/CPAP/BIPAP Additional Past Medical History / Comment(s): NO CPAP, HX OF MS (hx of symptoms of weakness, falls, dizzines & headaches), RLS, SLIGHT LEFT SIDED WEAKNESS FROM TIA, DIVERTICULITIS, DDD IN NECK AND BACK, PAIN IN BACK AND LEGS., DYSPHAGIA. History of Any Multi-Drug Resistant Organisms: None Reported Past Surgical History: Appendectomy, Bowel Resection, Breast Surgery, Cholecystectomy, Hernia Repair, Hysterectomy, Orthopedic Surgery Additional Past Surgical History / Comment(s): RIGHT BREAST BIOPSY,CARPAL TUNNEL THELMA.,RT WRIST thumb joint replacement, BONE SPUR REMOVED FROM PELVIS, SURG FOR ACID REFLUX, HEMORRHOIDECTOMY, CATARACTS, incisional hernia surgery X3, EGD Past Anesthesia/Blood Transfusion Reactions: No Reported Reaction Past Psychological History: No Psychological Hx Reported Smoking Status: Never smoker Past Alcohol Use History: None Reported Past Drug Use History: None Reported - Past Family History Father Additional Family Medical History / Comment(s): at age 30- drowning Son(s) Family Medical History: Cancer Additional Family Medical History / Comment(s): MELENOMA Sister(s) Family Medical History: Cancer Additional Family Medical History / Comment(s): BREAST Mother Family Medical History: Deep Vein Thrombosis (DVT), Pulmonary Embolus Medications and Allergies Home Medications Medication Instructions Recorded Confirmed Type Famotidine [Pepcid] 20 mg PO BID 06/13/14 07/12/19 History rOPINIRole HCL [Requip] 0.5 mg PO HS 04/26/16 07/12/19 History oxyCODONE HCL [Roxicodone] 15 mg PO TID PRN 10/18/16 07/12/19 History Baclofen 10 mg PO BID PRN 05/19/17 07/12/19 History Atorvastatin [Lipitor] 40 mg PO HS 05/10/18 07/12/19 History Ezetimibe [Zetia] 10 mg PO DAILY 05/10/18 07/12/19 History Fluticasone Nasal [place] [Flonase 1 spray EA NOSTRIL BID PRN 05/10/18 07/12/19 History Nasal [place]] Omeprazole 20 mg PO DAILY 12/19/18 07/12/19 History Ampyra 10 mg PO HS 07/09/19 07/12/19 History Celecoxib [CeleBREX] 200 mg PO DAILY 07/09/19 07/09/19 History Ocrevus (Infusion For Ms) 1 dose IV DIRECTED 07/09/19 07/12/19 History Allergies Allergy/AdvReac Type Severity Reaction Status Date / Time No Known Allergies Allergy Verified 07/09/19 11:57 Surgical - Exam Vital Signs Temp Pulse Resp BP Pulse Ox 97.8 F 80 18 186/96 96 07/12/19 08:00 07/12/19 08:00 07/12/19 08:00 07/12/19 08:00 07/12/19 08:00 - General well developed, no distress - Eyes PERRL - ENT normal pinna - Neck no masses - Respiratory normal expansion - Cardiovascular Rhythm: regular - Abdomen Abdomen: soft, non tender Assessment and Plan Assessment: Dysphagia. We'll perform EGD.
--- NOTE | 2019-07-12 09:37 | P.OP ---
Date of Procedure: 07/12/19 Preoperative Diagnosis: Dysphagia Postoperative Diagnosis: Small hiatal hernia Mild antral gastritis Procedure(s) Performed: EGD Anesthesia: MAC Surgeon: Severo Meneses Pathology: other (Antrum and esophagus) Condition: stable Disposition: PACU Description of Procedure: Patient's placed on the endoscopy table in the lateral position. She received IV sedation. The gastroscope placed oropharynx passed in the esophagus and stomach. Scope then placed through the pylorus. The first and second portion of duodenum appeared normal. Scope was then brought back the antrum this. Mildly inflamed. A biopsies performed. Scope was unretroflexed and remainder of the stomach appeared normal. There was a small hiatal hernia. The GE junction was at 39 cm. The distal esophagus appeared mildly inflamed a biopsies performed. The proximal esophagus appeared normal. Scope withdrawn for patient. There is no evidence of any obstruction of the esophagus were gastroesophageal junction.
[2019-07-12 10:02] VITALS: BP 156/88; PULSE 88
== END 2019-07-12 10:12 | disposition home or self-care (01) ==
LOC: ORWHC2ENDO 07:47
PROVIDERS: ATTEND Surgery
DX: K29.50 Unspecified chronic gastritis without bleeding (principal); K44.9 Diaphragmatic hernia without obstruction or gangrene; M79.7 Fibromyalgia; K21.9 Gastro-esophageal reflux disease without esophagitis; E78.5 Hyperlipidemia, unspecified; I10 Essential (primary) hypertension; G47.33 Obstructive sleep apnea (adult) (pediatric); G35 Multiple sclerosis; G25.81 Restless legs syndrome; I69.354 Hemiplegia and hemiparesis following cerebral infarction affecting left non-dominant side; K57.90 Diverticulosis of intestine, part unspecified, without perforation or abscess without bleeding; M50.30 Other cervical disc degeneration, unspecified cervical region; M51.9 Unspecified thoracic, thoracolumbar and lumbosacral intervertebral disc disorder; Z90.49 Acquired absence of other specified parts of digestive tract; Z98.890 Other specified postprocedural states; Z90.710 Acquired absence of both cervix and uterus; Z86.69 Personal history of other diseases of the nervous system and sense organs; Z96.691 Finger-joint replacement of right hand; Z98.49 Cataract extraction status, unspecified eye; Z79.899 Other long term (current) drug therapy; Z79.1 Long term (current) use of non-steroidal anti-inflammatories (NSAID); Z80.8 Family history of malignant neoplasm of other organs or systems; Z80.3 Family history of malignant neoplasm of breast; Z82.49 Family history of ischemic heart disease and other diseases of the circulatory system
CPT/HCPCS: 43239; J2001; J2704; 88305

== ENCOUNTER → 2019-07-21 | Outpatient (CLI) | payer MEDICARE, OTHER ==
--- NOTE | 2019-07-21 15:33 | XR ---
EXAMINATION TYPE: XR facial bones limited DATE OF EXAM: 07/21/2019 COMPARISON: NONE HISTORY: Trauma injury one week ago with pain and lump. TECHNIQUE: Facial bones limited with frontal lateral projections FINDINGS: Prominent epiploic vessels. No suspicious linear lucency to suggest acute linear skull frac ture. Overlying soft tissue is unremarkable. IMPRESSION: As above.
== END | disposition home or self-care (01) ==
LOC: RADXRYALE 15:16
PROVIDERS: ATTEND Physician Assistant Medical
DX: R22.0 Localized swelling, mass and lump, head (principal)
CPT/HCPCS: 70140

== ENCOUNTER 2020-07-08 13:30 | Emergency (ER) | payer MEDICARE, OTHER ==
[2020-07-08 13:44] VITALS: BP 195/99; PULSE 69; RESP 17; TEMP 97.7
[2020-07-08] MEDS ORDERED: ONDANSETRON 4 MG/2 ML VIAL IVP STA (13:54)
[2020-07-08] MEDS ORDERED: SODIUM CHLORIDE 0.9% 1,000 ML IV STA (13:54)
[2020-07-08] MEDS ORDERED: HYDROmorphone 0.5 MG/0.5 ML SYRINGE IVP STA (13:54)
[2020-07-08] MEDS ORDERED: KETOROLAC 15 MG/ML 1 ML VIAL IVP STA (13:54)
[2020-07-08 14:38] LABS: Basophils % (A) 0 %; Eosinophils # (A) 0.2 k/uL (0-0.7); Eosinophils % (A) 2 %; HCT 40.3 % (34.0-46.0); HGB 13.9 gm/dL (11.4-16.0); Lymphocytes # (A) 0.5 k/uL (1.0-4.8); Lymphocytes % (A) 4 %; MCH 30.9 pg (25.0-35.0); MCHC 34.5 g/dL (31.0-37.0); MCV 89.7 fL (80.0-100.0); Mean Platelet Volume 7.6; Monocytes # (A) 0.4 k/uL (0-1.0); Monocytes % (A) 3 %; Neutrophils # (A) 11.8 k/uL (1.3-7.7); Neutrophils % (A) 91 %; Platelet Count 317 k/uL (150-450); RBC 4.49 m/uL (3.80-5.40); RDW 13.5 % (11.5-15.5)
[2020-07-08 14:54] LABS: Albumin 4.3 g/dL (3.5-5.0); Calcium 9.3 mg/dL (8.4-10.2); Potassium 4.1 mmol/L (3.5-5.1); Total Bilirubin 0.6 mg/dL (0.2-1.3)
--- NOTE | 2020-07-08 15:31 | ED ---
Abdominal Pain HPI - General Chief Complaint: Abdominal Pain Stated Complaint: abd pain Time Seen by Provider: 07/08/20 13:46 Source: patient Mode of arrival: ambulatory Limitations: no limitations - History of Present Illness Initial Comments: Patient is a 70-year-old female presenting to the emergency Department with complaints of severe left-sided abdominal pain that started about 2:30 this morning. She states the pain seemed to come on very sudden and is very intense in nature. She states she is prescribed axes for chronic pain and she did take 2 of those but it did not help with the pain. She states the pain is mostly on the left side of her abdomen with some radiation across. She admits to a little bit of nausea, no vomiting or diarrhea. No chest condition as of breath. She denies history of kidney stones. She admits to history of diverticulitis, cholecystectomy, hysterectomy, appendectomy. She denies any fevers or chills. She has no further complaints at this time. Upon arrival to the ER, her blood pressures elevated however she is in severe pain, rest of vitals are normal. - Related Data Home Medications Medication Instructions Recorded Confirmed Famotidine [Pepcid] 20 mg PO BID 06/13/14 07/12/19 rOPINIRole HCL [Requip] 0.5 mg PO HS 04/26/16 07/12/19 oxyCODONE HCL [Roxicodone] 15 mg PO TID PRN 10/18/16 07/12/19 Baclofen 10 mg PO BID PRN 05/19/17 07/12/19 Atorvastatin [Lipitor] 40 mg PO HS 05/10/18 07/12/19 Ezetimibe [Zetia] 10 mg PO DAILY 05/10/18 07/12/19 Fluticasone Nasal [place] [Flonase 1 spray EA NOSTRIL BID PRN 05/10/18 07/12/19 Nasal [place]] Omeprazole 20 mg PO DAILY 12/19/18 07/12/19 Ampyra 10 mg PO HS 07/09/19 07/12/19 Celecoxib [CeleBREX] 200 mg PO DAILY 07/09/19 07/09/19 Ocrevus (Infusion For Ms) 1 dose IV DIRECTED 07/09/19 07/12/19 Previous Rx's Medication Instructions Recorded Ketorolac [Toradol] 10 mg PO Q8HR #10 tab 07/08/20 Ondansetron Odt [Zofran Odt] 4 mg PO Q8HR PRN #10 tab 07/08/20 Allergies Allergy/AdvReac Type Severity Reaction Status Date / Time No Known Allergies Allergy Verified 07/08/20 13:42 Review of Systems ROS Statement: Those systems with pertinent positive or pertinent negative responses have been documented in the HPI. ROS Other: All systems not noted in ROS Statement are negative. Past Medical History Past Medical History: CVA/TIA, Fibromyalgia, GERD/Reflux, Hyperlipidemia, Hypertension, Musculoskeletal Disorder, Pneumonia, Sleep Apnea/CPAP/BIPAP Additional Past Medical History / Comment(s): NO CPAP, HX OF MS, hx VERTIGO AND HAS HAD FALLS, RESTLESS LEG, SLIGHT LEFT SIDED WEAKNESS FROM TIA, hx diverticulitis, History of Any Multi-Drug Resistant Organisms: None Reported Past Surgical History: Appendectomy, Bowel Resection, Breast Surgery, Cholecystectomy, Hernia Repair, Hysterectomy, Orthopedic Surgery Additional Past Surgical History / Comment(s): RIGHT BREAST BIOPSY,CARPAL TUNNEL THELMA.,RT WRIST thumb joing replacement, BONE SPUR REMOVED FROM PELVIS, SURG FOR ACID REFLUX, HEMORRHOIDECTOMY, THELMA CATARACTS, recent incisional hernia surgery X3, endoscopy09/16/2018, Past Anesthesia/Blood Transfusion Reactions: No Reported Reaction Past Psychological History: No Psychological Hx Reported Smoking Status: Never smoker Past Alcohol Use History: None Reported Past Drug Use History: None Reported - Past Family History Father Additional Family Medical History / Comment(s): at age 30- drowning Son(s) Family Medical History: Cancer Additional Family Medical History / Comment(s): MELENOMA Sister(s) Family Medical History: Cancer Additional Family Medical History / Comment(s): BREAST Mother Family Medical History: Deep Vein Thrombosis (DVT), Pulmonary Embolus General Exam - General Exam Comments Initial Comments: GENERAL: Patient is well-developed and well-nourished. Patient is nontoxic and in moderate distress. HEAD: Atraumatic, normocephalic. EYES: Pupils equal round and reactive to light, extraocular movements intact, sclera anicteric, conjunctiva are normal. Eyelids were unremarkable. ENT: TMs normal, nares patent, oropharynx clear without exudates. Moist mucous membranes. NECK: Normal range of motion, supple without lymphadenopathy or JVD. LUNGS: Unlabored respirations. Breath sounds clear to auscultation bilaterally and eq ual. No wheezes rales or rhonchi. HEART: Regular rate and rhythm without murmurs, rubs or gallops. ABDOMEN: Soft, tender to palpation in the left side of the abdomen, normoactive bowel sounds. No guarding, no rebound. No masses appreciated. : Deferred MUSCULOSKELETAL: Normal extremities with adequate strength and normal range of motion, no pitting or edema. No clubbing or cyanosis. NEUROLOGICAL: Patient is alert and oriented x 3. Motor and sensory are also intact. Cranial nerves II through XII grossly intact. Symmetrical smile. Normal speech, normal gait. PSYCH: Normal mood, normal affect. SKIN: Warm, Dry, normal turgor, no rashes or lesions noted. Limitations: no limitations Course Vital Signs 07/08/20 13:40 Temperature 97.7 F Pulse Rate 69 Respiratory 17 Rate Blood Pressure 195/99 O2 Sat by Pulse 98 Oximetry Medical Decision Making - Medical Decision Making Patient is 70-year-old female here for left-sided abdominal pain started suddenly this morning to partially 2:30 in the morning. Mild nausea no vomiting or fevers. Her vitals are stable. Labs show a slight white count 13.0, creatinine is 1.13, lactic acid is normal. Urine shows no evidence of infection, mild hematuria. Computed tomography scan of the abdomen and pelvis showed moderate left-sided hydronephrosis secondary to a 3 mm calculus in the proximal left ureter. There is a questionable small infiltrate in the left alone, she has no coughing, no fevers, no sign of respiratory issues. It was given fluids, pain control, has been resting comfortably. I discussed these findings with the patient. Patient will be sent home with a few tablets of Toradol and Zofran for her symptoms. For more severe pain she can take her already prescribed pain medicine. We discussed her taking a lot of fluids. She can follow up with her PCP. Patient is stable for discharge. Patient is in agreement with this plan of care. Return parameters were discussed with the patient and they verbalized understanding. Case discussed with Dr. Alejandra. - Lab Data Result diagrams: 07/08/20 14:30 07/08/20 14:30 Lab Results 07/08/20 07/08/20 07/08/20 Range/Units 14:30 14:30 14:30 WBC 13.0 H (3.8-10.6) k/uL RBC 4.49 (3.80-5.40) m/uL Hgb 13.9 (11.4-16.0) gm/dL Hct 40.3 (34.0-46.0) % MCV 89.7 (80.0-100.0) fL MCH 30.9 (25.0-35.0) pg MCHC 34.5 (31.0-37.0) g/dL RDW 13.5 (11.5-15.5) % Plt Count 317 (150-450) k/uL MPV 7.6 Neutrophils % 91 % Lymphocytes % 4 % Monocytes % 3 % Eosinophils % 2 % Basophils % 0 % Neutrophils # 11.8 H (1.3-7.7) k/uL Lymphocytes # 0.5 L (1.0-4.8) k/uL Monocytes # 0.4 (0-1.0) k/uL Eosinophils # 0.2 (0-0.7) k/uL Basophils # 0.0 (0-0.2) k/uL Sodium 137 (137-145) mmol/L Potassium 4.1 (3.5-5.1) mmol/L Chloride 104 (98-107) mmol/L Carbon Dioxide 26 (22-30) mmol/L Anion Gap 7 mmol/L BUN 14 (7-17) mg/dL Creatinine 1.13 H (0.52-1.04) mg/dL Est GFR (CKD-EPI)AfAm 58 (>60 ml/min/1.73 sqM) Est GFR (CKD-EPI)NonAf 50 (>60 ml/min/1.73 sqM) Glucose 152 H (74-99) mg/dL Plasma Lactic Acid Nam 1.6 (0.7-2.0) mmol/L Calcium 9.3 (8.4-10.2) mg/dL Total Bilirubin 0.6 (0.2-1.3) mg/dL AST 27 (14-36) U/L ALT 13 (4-34) U/L Alkaline Phosphatase 119 (38-126) U/L Total Protein 7.0 (6.3-8.2) g/dL Albumin 4.3 (3.5-5.0) g/dL Amylase 49 (30-110) U/L Lipase 100 (23-300) U/L Urine Color Urine Appearance (Clear) Urine pH (5.0-8.0) Ur Specific [place] (1.001-1.035) Urine Protein (Negative) Urine Glucose (UA) (Negative) Urine Ketones (Negative) Urine Blood (Negative) Urine Nitrite (Negative) Urine Bilirubin (Negative) Urine Urobilinogen (<2.0) mg/dL Ur Leukocyte Esterase (Negative) Urine RBC (0-5) /hpf Urine WBC (0-5) /hpf Ur Squamous Epith Cells (0-4) /hpf Urine Mucus (None) /hpf 07/08/20 Range/Units 15:50 WBC (3.8-10.6) k/uL RBC (3.80-5.40) m/uL Hgb (11.4-16.0) gm/dL Hct (34.0-46.0) % MCV (80.0-100.0) fL MCH (25.0-35.0) pg MCHC (31.0-37.0) g/dL RDW (11.5-15.5) % Plt Count (150-450) k/uL MPV Neutrophils % % Lymphocytes % % Monocytes % % Eosinophils % % Basophils % % Neutrophils # (1.3-7.7) k/uL Lymphocytes # (1.0-4.8) k/uL Monocytes # (0-1.0) k/uL Eosinophils # (0-0.7) k/uL Basophils # (0-0.2) k/uL Sodium (137-145) mmol/L Potassium (3.5-5.1) mmol/L Chloride (98-107) mmol/L Carbon Dioxide (22-30) mmol/L Anion Gap mmol/L BUN (7-17) mg/dL Creatinine (0.52-1.04) mg/dL Est GFR (CKD-EPI)AfAm (>60 ml/min/1.73 sqM) Est GFR (CKD-EPI)NonAf (>60 ml/min/1.73 sqM) Glucose (74-99) mg/dL Plasma Lactic Acid Nam (0.7-2.0) mmol/L Calcium (8.4-10.2) mg/dL Total Bilirubin (0.2-1.3) mg/dL AST (14-36) U/L ALT (4-34) U/L Alkaline Phosphatase (38-126) U/L Total Protein (6.3-8.2) g/dL Albumin (3.5-5.0) g/dL Amylase (30-110) U/L Lipase (23-300) U/L Urine Color Yellow Urine Appearance Clear (Clear) Urine pH 5.5 (5.0-8.0) Ur Specific [place] 1.044 H (1.001-1.035) Urine Protein Trace H (Negative) Urine Glucose (UA) Negative (Negative) Urine Ketones Negative (Negative) Urine Blood Small H (Negative) Urine Nitrite Negative (Negative) Urine Bilirubin Negative (Negative) Urine Urobilinogen <2.0 (<2.0) mg/dL Ur Leukocyte Esterase Negative (Negative) Urine RBC 5 (0-5) /hpf Urine WBC 1 (0-5) /hpf Ur Squamous Epith Cells 2 (0-4) /hpf Urine Mucus Rare H (None) /hpf Disposition Clinical Impression: Calculus of proximal left ureter, Hydronephrosis, left Disposition: HOME SELF-CARE Condition: Stable Instructions (If sedation given, give patient instructions): Kidney Stones (ED) Additional Instructions: Please return to the Emergency Department if symptoms worsen or any other concerns. Continue to increase your fluid intake as discussed. Take medications as prescribed, if needed. Follow-up with your PCP. Prescriptions: Ketorolac [Toradol] 10 mg PO Q8HR #10 tab Ondansetron Odt [Zofran Odt] 4 mg PO Q8HR PRN #10 tab PRN Reason: Nausea Is patient prescribed a controlled substance at d/c from ED?: No Referrals: Omid Hunter DO [Primary Care Provider] - 1-2 days Time of Disposition: 16:37
--- NOTE | 2020-07-08 15:34 | CT ---
EXAMINATION TYPE: CT abdomen pelvis w con DATE OF EXAM: 07/08/2020 COMPARISON: 07/15/2017. HISTORY: Left sided abdominal pain. CT DLP: 868.9 mGycm Automated exposure control for dose reduction was used. TECHNIQUE: Helical acquisition of images was performed from the lung bases through the pelvis. CONTRAST: Performed without Oral Contrast and with IV Contrast, patient injected with 80 mL of Isovue 300. FINDINGS: There is a small focal area of partially consolidative opacity in the left lingula which could repres ent a small pneumonia. Clinical correlation follow-up to resolution is recommended. There is surgical absence of the gallbladder no biliary ductal dilatation. There is no focal mass within the liver pancreas spleen or adrenal glands. There is moderate hydronephrosis of the left kidney secondary to a 3 mm proximal left ureteral calcul us. Tiny calcification is also seen within the upper portion of the left kidney collecting system. The right kidney is unremarkable. There is no retroperitoneal adenopathy or hemorrhage in the caliber of the abdominal aorta is normal. The bowel loops are normal in caliber and there is no evidence of bowel obstruction or inflammation. There are anastomotic sutures in the left lower quadrant of the abdomen. There is no free or fluid. There is no pelvic abscess, free fluid or adenopathy. There are surgical absence of the uterus. The osseous structures are intact. IMPRESSION: 1. Moderate left sided hydronephrosis secondary to a 3 mm calculus in the proximal left ureter. 2. Questionable small infiltrate in the left lung lingula which could represent an early or small pne umonia. Clinical correlation follow-up is recommended.
[2020-07-08 16:09] LABS: Appearance,Urine Clear (Clear); Bilirubin,Urine Negative (Negative); Blood,Urine Small (Negative); Color,Urine Yellow; Glucose,Urine (UA) Negative (Negative); Ketones,Urine Negative (Negative); Leukocyte Esterase,Urine Negative (Negative); Mucus,Urine Rare /hpf; Nitrite,Urine Negative (Negative); PH, Urine 5.5 (5.0-8.0); Protein,Urine Trace (Negative); RBC,Urine 5 /hpf (0-5); Specific Gravity,Urine 1.044 (1.001-1.035); Squamous Epithelial Cell,Urine 2 /hpf (0-4); Urobilinogen,Urine <2.0 mg/dL (<2.0); WBC,Urine 1 /hpf (0-5)
== END 2020-07-08 16:45 | disposition home or self-care (01) ==
LOC: EC 13:30
DX: N13.2 Hydronephrosis with renal and ureteral calculous obstruction (principal); K21.9 Gastro-esophageal reflux disease without esophagitis; E78.5 Hyperlipidemia, unspecified; I10 Essential (primary) hypertension; G47.33 Obstructive sleep apnea (adult) (pediatric); Z99.81 Dependence on supplemental oxygen; Z90.49 Acquired absence of other specified parts of digestive tract; Z90.710 Acquired absence of both cervix and uterus; Z86.73 Personal history of transient ischemic attack (TIA), and cerebral infarction without residual deficits
CPT/HCPCS: 36415; 80053; 82150; 83605; 83690; 85025; 81001; 74177; 99284; 96374; 96375 ×2; 96361 ×2; J2405; J1885; J1170; Q9967

== ENCOUNTER → 2020-07-11 | Outpatient (CLI) | payer MEDICARE, OTHER ==
[2020-07-11 14:13] LABS: Basophils % (A) 1 %; Eosinophils # (A) 0.1 k/uL (0-0.7); Eosinophils % (A) 2 %; HGB 12.9 gm/dL (11.4-16.0); Lymphocytes # (A) 1.8 k/uL (1.0-4.8); Lymphocytes % (A) 27 %; MCH 29.9 pg (25.0-35.0); MCHC 33.1 g/dL (31.0-37.0); MCV 90.3 fL (80.0-100.0); Mean Platelet Volume 7.4; Monocytes # (A) 0.5 k/uL (0-1.0); Monocytes % (A) 7 %; Neutrophils # (A) 4.1 k/uL (1.3-7.7); Neutrophils % (A) 62 %; Platelet Count 344 k/uL (150-450); RBC 4.32 m/uL (3.80-5.40); RDW 13.9 % (11.5-15.5); Reticulocyte % 2.4 % (0.5-2.0); WBC 6.6 k/uL (3.8-10.6)
[2020-07-11 14:29] LABS: Potassium 3.8 mmol/L (3.5-5.1)
[2020-07-11 14:32] LABS: Albumin 4.1 g/dL (3.5-5.0); C Reactive Protein 1.9 mg/dL (<1.0); Calcium 9.6 mg/dL (8.4-10.2); Total Bilirubin 0.8 mg/dL (0.2-1.3); Total Protein 6.6 g/dL (6.3-8.2)
--- NOTE | 2020-07-11 14:45 | US ---
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 GLAND SIZE: Right Lobe: 3.6 x 1.3 x 1.5 cm Overall Parenchyma: homogenous Left Lobe: 4.1 x 1.5 x 1.7 cm Overall Parenchyma: homogeneous Isthmus Thickness: 0.2 cm NODULES RIGHT: # of nodules measured on right: 1 1. 1.3 x 0.8 x 1.0cm, lower, mixed cystic and solid, isoechoic nodule, which is wider than tall, wit h smooth margins, without echogenic foci. LEFT: # of nodules measured on left: 2 1. 2.0 X 1.3 x 1.4 cm, mid, solid or almost completely solid, hypoechoic nodule, which is wider darcy n tall, with smooth margins, without echogenic foci. 2. 1.5 X 1.0 x 1.4 cm, lower , solid or almost completely solid, anechoic nodule, which is wider t marshall tall, with smooth margins, without echogenic foci. ISTHMUS: # of nodules measured in the isthmus: 0 Bilateral neck scanned, no evidence of lymphadenopathy. IMPRESSION: Multinodular thyroid with the largest nodule measuring 2 cm on the left. 2017 ACR TI-RADS LEVEL: TR-RADS 4 - Moderately Suspicious: Follow if > 1 cm, FNA if > 1.5 cm *Highest TI-RADS level nodule reported
[2020-07-11 14:47] LABS: T4, Free (Free Thyroxine) 1.09 ng/dL (0.78-2.19)
[2020-07-11 16:05] LABS: Erythrocyte Sedimentation Rate 33 mm/hr (0-20)
--- NOTE | 2020-07-11 16:16 | CT ---
EXAMINATION TYPE: CT facial bones w con DATE OF EXAM: 07/11/2020 COMPARISON: None HISTORY: c/o facial pain, numbness, headaches CT DLP: 564.4 mGycm CONTRAST: 100 mL of Isovue 300 The paranasal sinuses are examined in the axial plane at 2 mm thick sections. Reconstructed images i n the coronal plane were obtained. There is dental amalgam scatter artifact. Maxillary spine appears intact. Zygomatic arches are intact . Nasal bones are unremarkable. Orbits appear symmetrical. No blowout fractures are evident. The maxillary sinuses are clear. The ethmoid air cells are clear. The sphenoid sinuses are clear. The frontal sinuses are clear. The septum is evaluated. There is septal deviation to the left. The ostiomeatal units are patent. There is a right samia bullosa. No suspicious enhancement is evident. IMPRESSIONS: 1. No suspicious acute osseous abnormality.
[2020-07-11 21:37] LABS: Hemoglobin A1C 5.5 % (4.0-6.0)
[2020-07-12 00:33] LABS: % Iron Saturation 10.26 (12.00-45.00)
[2020-07-12 00:42] LABS: Ferritin 31.8 ng/mL (10.0-291.0); Luteinizing Hormone 28.1 mIU/mL
[2020-07-12 00:43] LABS: Follicle Stimulating Hormone 70.3 mIU/mL
== END | disposition home or self-care (01) ==
LOC: RADUSWWP 14:04
PROVIDERS: ATTEND Psychiatry & Neurology Neurology
DX: C41.0 Malignant neoplasm of bones of skull and face (principal); E04.2 Nontoxic multinodular goiter; R51.9 Headache, unspecified
CPT/HCPCS: 84207; 84439; 84305; 84481; 80053; 85652; 82626; 82533; 83001; 83002; 82607; 82728; 83003; 83540; 83550; 84443; 85025; 85045; 86140; 84466; 82306; 83036; 76536; 70487; Q9967

== ENCOUNTER → 2020-08-16 | Outpatient (CLI) | payer MEDICARE, OTHER ==
--- NOTE | 2020-08-16 15:24 | US ---
EXAMINATION TYPE: US kidneys/renal and bladder DATE OF EXAM: 08/16/2020 COMPARISON: CT 2020 CLINICAL HISTORY: N13.30 Unspecified hydronephrosis,N201 Calculus of ureter. History of kidney stones , hematuria EXAM MEASUREMENTS: Right Kidney: 10.1 x 4.4 x 4.9 cm Left Kidney: 11.0 x 5.3 x 4.4 cm Right Kidney: No hydronephrosis or masses seen Left Kidney: No hydronephrosis, 0.4cm echogenic focus mid pole Bladder: not fully distended, appears wnl as seen Bilateral Jets seen: right jet not seen, left jet seen There is no evidence for hydronephrosis at this point in time. IMPRESSION: 1. Echogenic focus in the left kidney measuring up to 0.4 cm likely represents nephrolithiasis. 2. Left ureteral jet was seen. Right ureteral jet was not seen.
== END | disposition home or self-care (01) ==
LOC: RADUSWWP 14:43
PROVIDERS: ATTEND Family Medicine
DX: N13.2 Hydronephrosis with renal and ureteral calculous obstruction (principal); Z87.442 Personal history of urinary calculi
CPT/HCPCS: 76770

== ENCOUNTER 2020-08-22 12:32 | Day surgery (SDC) | payer MEDICARE, OTHER ==
[2020-08-22] MEDS ORDERED: ALPRAZolam 0.25 MG TAB PO STA (13:24)
--- NOTE | 2020-08-22 15:49 | US ---
EXAMINATION TYPE: US FNA thyroid each add lesion, US FNA thyroid each add lesion, US FNA first lesion DATE OF EXAM: 08/22/2020 COMPARISON: Ultrasound thyroid 07/11/2020 HISTORY: Thyroid nodules. Maximal barrier technique was utilized. After informed consent, skin overlying the right lobe nodule was localized with ultrasound and the overlying skin prepped and draped. Ultrasound was utilized usi ng sterile technique. Lidocaine was used for local anesthesia. Five passes with a 25-gauge needle we re made into the nodule and aspirated specimen was submitted to cytology. Using similar technique the nodule in the midpole the left lobe of the thyroid was sampled with 5 passes under ultrasound guidan ce, subsequently the a sending lower pole left lobe nodule was sampled with 5 passes with a 25-gauge needle under ultrasound guidance. Following the procedure hemostasis achieved. No immediate complica tion. The patient discharged in stable condition. IMPRESSION: STATUS POST ULTRASOUND GUIDED FINE NEEDLE ASPIRATION OF THYROID NODULES, PATHOLOGY IS ADAM RICHARDSON. THIS PROCEDURE WAS PERFORMED BY THE UNDERSIGNED.
[2020-08-22 15:50] VITALS: RESP 18; TEMP 98.1
[2020-08-22 15:52] VITALS: BP 127/76; PULSE 76
== END 2020-08-22 15:05 | disposition home or self-care (01) ==
LOC: RADPROMAIN 12:32
PROVIDERS: ATTEND Family Medicine
DX: E04.2 Nontoxic multinodular goiter (principal)
CPT/HCPCS: 10005; 10006; 88173; 88305

== ENCOUNTER → 2021-04-09 | Outpatient (CLI) | payer MEDICARE, OTHER ==
[2021-04-09 19:33] LABS: % Iron Saturation 13.68 (12.00-45.00); African American GFR (CKD) 87.8 (60.0-200.0); Albumin 4.6 g/dL (3.8-4.9); Albumin/Globulin Ratio 1.77 (1.60-3.17); Anion Gap 14.9 mmol/L (10.00-18.00); BUN/Creat Ratio 11.88 Ratio (12.00-20.00); Blood Urea Nitrogen 9.5 mg/dL (9.0-27.0); Calcium 9.5 mg/dL (8.7-10.3); Carbon Dioxide 22.1 mmol/L (20.0-27.5); Globulin 2.6 g/dL (1.6-3.3); Non-African American GFR(CKD) 75.8 (60.0-200.0); Potassium 3.8 mmol/L (3.5-5.5); T4, Free (Free Thyroxine) 1.26 ng/dL (0.800-1.800); Total Bilirubin 0.6 mg/dL (0.30-1.20); Total Protein 7.2 g/dL (6.2-8.2)
[2021-04-09 19:46] LABS: Basophils # (A) 0.04 X 10*3/uL (0.00-0.10); Basophils % (A) 0.5 %; Eosinophils % (A) 1.2 %; HCT 41.5 % (37.2-46.3); HGB 13.8 g/dL (12.0-15.0); Immature Grans, Automated 0.2 %; Lymphocytes # (A) 2.62 X 10*3/uL (0.90-5.00); Lymphocytes % (A) 30.5 %; MCH 31.2 pg (27.0-32.0); MCHC 33.3 g/dL (32.0-37.0); MCV 93.7 fL (80.0-97.0); Monocytes # (A) 0.82 X 10*3/uL (0.20-1.00); Monocytes % (A) 9.5 %; NRBC Per 100 WBC 0 /100 WBCS (0.0-0.0); Neutrophils % (A) 58.1 %; Platelet Count 320 X 10*3/uL (140-440); RBC 4.43 X 10*6/uL (4.10-5.20); RBC Morphology NORMAL; RDW 12.5 % (11.5-14.5); Reticulocyte % 1.76 % (0.10-1.80)
[2021-04-11 10:26] LABS: Vit B1(Thiamine) 79 ug/L (38-122)
[2021-04-19 11:32] LABS: Nicotinamide 29 ng/mL; Nicotinic Acid None Detected; Nicotinuric Acid None Detected
== END | disposition home or self-care (01) ==
LOC: LABWHC1 12:58
PROVIDERS: ATTEND Psychiatry & Neurology Pain Medicine
DX: R53.83 Other fatigue (principal)
CPT/HCPCS: 36415; 80053; 82306; 82533; 82550; 82553; 82607; 82626; 82747; 83036; 83540; 83550; 84207; 84425; 84439; 84443; 84466; 84591; 85025; 85045

== ENCOUNTER → 2021-08-23 | Outpatient (CLI) | payer MEDICARE, OTHER ==
[2021-08-23 14:07] LABS: Basophils # (A) 0.04 X 10*3/uL (0.00-0.10); Basophils % (A) 0.6 %; Eosinophils # (A) 0.15 X 10*3/uL (0.04-0.35); Eosinophils % (A) 2.1 %; HCT 40.8 % (37.2-46.3); HGB 12.9 g/dL (12.0-15.0); Immature Grans, Automated 0.3 %; Lymphocytes # (A) 2.12 X 10*3/uL (0.90-5.00); Lymphocytes % (A) 29.4 %; MCH 30.4 pg (27.0-32.0); MCHC 31.6 g/dL (32.0-37.0); Mean Platelet Volume 10.5 fL (9.5-12.2); Monocytes # (A) 0.85 X 10*3/uL (0.20-1.00); Monocytes % (A) 11.8 %; NRBC Per 100 WBC 0 /100 WBCS (0.0-0.0); Neutrophils # (A) 4.02 X 10*3/uL (1.80-7.70); Neutrophils % (A) 55.8 %; Platelet Count 329 X 10*3/uL (140-440); RBC 4.25 X 10*6/uL (4.10-5.20); RDW 13.7 % (11.5-14.5)
[2021-08-23 14:52] LABS: ALT 14 U/L (8-44); AST 19 U/L (13-35); African American GFR (CKD) 75.6 (60.0-200.0); Albumin 4.3 g/dL (3.8-4.9); Albumin/Globulin Ratio 2.39 (1.60-3.17); Alkaline Phosphatase 107 U/L (41-126); BUN/Creat Ratio 15.67 Ratio (12.00-20.00); Blood Urea Nitrogen 14.1 mg/dL (9.0-27.0); Calcium 9.3 mg/dL (8.7-10.3); Carbon Dioxide 24.7 mmol/L (20.0-27.5); Chloride 105 mmol/L (96-109); Chol/HDL Ratio 3.04 Ratio; Globulin 1.8 g/dL (1.6-3.3); Glucose 115 mg/dL (70-110); LDL Cholesterol,Calculated 112.6 mg/dL (0.0-131.0); Non-African American GFR(CKD) 65.2 (60.0-200.0); Potassium 3.8 mmol/L (3.5-5.5); Sodium 142 mmol/L (135-145); Total Protein 6.1 g/dL (6.2-8.2); VLDL Calculation 18.88 mg/dL (5.00-40.00)
== END | disposition home or self-care (01) ==
LOC: LABWHC1 08:26
PROVIDERS: ATTEND Family Medicine
DX: I10 Essential (primary) hypertension (principal); E55.9 Vitamin D deficiency, unspecified; E78.5 Hyperlipidemia, unspecified; R53.83 Other fatigue
CPT/HCPCS: 36415; 80053; 80061; 82306; 84443; 85025

== ENCOUNTER → 2021-10-03 | Outpatient (CLI) | payer MEDICARE, OTHER ==
--- NOTE | 2021-10-03 16:06 | XR ---
EXAMINATION TYPE: XR abdomen 2V DATE OF EXAM: 10/03/2021 CLINICAL DATA: 71-year-old female left-sided abdominal pain, history of diverticulosis, R1032,R1012 LLQ PAIN, LUQ PAIN, YCH COMPARISON: 03/07/2016 FINDINGS: Numerous pelvic phleboliths. No evidence for free intraperitoneal air. No dilated small bow el or air-fluid levels. Mild overall stool burden. Cholecystectomy clips. Stable round calcification projecting over the left sacrum likely a phlebolith. IMPRESSION: Nonobstructive bowel gas pattern. No free air. Numerous pelvic phleboliths. Prior cholecy stectomy.
== END | disposition home or self-care (01) ==
LOC: RADXRYALE 11:01
PROVIDERS: ATTEND Physician Assistant Medical
DX: R10.32 Left lower quadrant pain (principal); R10.12 Left upper quadrant pain
CPT/HCPCS: 74019

== ENCOUNTER 2021-10-29 09:51 | Day surgery (SDC) | payer MEDICARE, OTHER ==
[~2021-10-29 09:51] MED LIST changes: -LIDOCAINE 1% (10MG/ML) FOR IV START INTRADERMA PRN
[2021-10-29] MEDS ORDERED: LIDOCAINE 1% (10MG/ML) FOR IV START INTRADERMA ONE (10:30)
[2021-10-29 10:34] VITALS: RESP 16; TEMP 97.7
[2021-10-29] MEDS ORDERED: PROPOFOL 10 MG/ML 20 ML VIAL IV ONE (10:50)
[2021-10-29] MEDS ORDERED: LIDOCAINE 2% INJ 20 MG/ML (2 ML VIAL) ONE (10:50)
--- NOTE | 2021-10-29 11:07 | P.GSHP ---
History of Present Illness H&P Date: 10/29/21 Chief Complaint: GERD, dysphagia This a 71-year-old female presents today for EGD. She's admissions GERD and dysphagia. Past Medical History Past Medical History: CVA/TIA, Fibromyalgia, GERD/Reflux, Hyperlipidemia, Hypertension, Musculoskeletal Disorder, Pneumonia, Sleep Apnea/CPAP/BIPAP Additional Past Medical History / Comment(s): NO CPAP, HX OF MS, hx VERTIGO AND HAS HAD FALLS, RESTLESS LEG, hx diverticulitis. HIATAL HERNIA History of Any Multi-Drug Resistant Organisms: None Reported Past Surgical History: Appendectomy, Bowel Resection, Breast Surgery, Cholecystectomy, Hernia Repair, Hysterectomy, Orthopedic Surgery Additional Past Surgical History / Comment(s): RIGHT BREAST BIOPSY,CARPAL TUNNEL THELMA.,RT WRIST thumb joint replacement, BONE SPUR REMOVED FROM PELVIS, SURG FOR ACID REFLUX, HEMORRHOIDECTOMY, THELMA CATARACTS, recent incisional hernia surgery X3, endoscopy09/16/2018, Past Anesthesia/Blood Transfusion Reactions: No Reported Reaction Past Psychological History: No Psychological Hx Reported Smoking Status: Never smoker Past Alcohol Use History: None Reported Past Drug Use History: None Reported - Past Family History Father Additional Family Medical History / Comment(s): at age 30- drowning Son(s) Family Medical History: Cancer Additional Family Medical History / Comment(s): MELENOMA Sister(s) Family Medical History: Cancer Additional Family Medical History / Comment(s): BREAST Mother Family Medical History: Deep Vein Thrombosis (DVT), Pulmonary Embolus Medications and Allergies Home Medications Medication Instructions Recorded Confirmed Type rOPINIRole HCL [Requip] 0.5 mg PO HS 04/26/16 10/26/21 History oxyCODONE HCL [Roxicodone] 15 mg PO TID PRN 10/18/16 10/26/21 History Baclofen 10 mg PO BID PRN 05/19/17 10/26/21 History Ezetimibe [Zetia] 10 mg PO HS 05/10/18 10/26/21 History Fluticasone Nasal [place] [Flonase 1 spray EA NOSTRIL BID PRN 05/10/18 10/26/21 History Nasal [place]] Omeprazole 20 mg PO QAM 12/19/18 10/26/21 History Celecoxib [CeleBREX] 200 mg PO BID PRN 07/09/19 10/26/21 History Budesonide/Formoterol Fumarate 2 puff INHALATION RT-BID PRN 06/06/21 10/26/21 History [Symbicort 160-4.5 Mcg Inhaler] Ergocalciferol [Vitamin D2 (1250 1,250 mcg PO TREVIZO 06/06/21 10/26/21 History Mcg = 53342 Iu)] Triamcinolone 0.1% Cream [Kenalog 1 applic TOPICAL BID PRN 06/06/21 10/26/21 History 0.1% Cream] hydroCHLOROthiazide [Hydrodiuril] 25 mg PO QAM 06/06/21 10/26/21 History lisinopriL [Prinivil] 10 mg PO QAM 10/26/21 10/26/21 History Allergies Allergy/AdvReac Type Severity Reaction Status Date / Time No Known Allergies Allergy Verified 10/26/21 09:18 Surgical - Exam Vital Signs Temp Pulse Resp BP Pulse Ox 97.7 F 77 16 140/78 94 L 10/29/21 10:30 10/29/21 10:30 10/29/21 10:30 10/29/21 10:30 10/29/21 10:30 - General well developed, well nourished, no distress - Eyes PERRL - ENT normal pinna - Neck no masses - Respiratory normal expansion - Cardiovascular Rhythm: regular - Abdomen Abdomen: soft, non tender Assessment and Plan Assessment: GERD, dysphagia. We'll perform EGD
--- NOTE | 2021-10-29 11:16 | P.OP ---
Date of Procedure: 10/29/21 Preoperative Diagnosis: GERD, dysphagia Postoperative Diagnosis: Mild antral gastritis Small recurrent hiatal hernia Minimal esophagitis Procedure(s) Performed: EGD Anesthesia: MAC Surgeon: Severo Meneses Pathology: other (Antrum, esophagus) Condition: stable Disposition: PACU Description of Procedure: The patient's placed on the endoscopy table in the lateral position. She received IV sedation. The gastroscope placed oropharynx passed in the esophagus into the stomach. Scope some placed through the pylorus. The first and second portion of the duodenum appeared normal. The scope was then brought back the antrum this. Mildly inflamed. A biopsies performed. Scope was then retroflexed and the remainder of the stomach appeared normal. There was a small recurrent hiatal hernia. The GE junction was at 38 cm. The distal esophagus appeared minimally inflamed. A biopsies performed. The proximal esophagus appeared normal. Scope withdrawn for patient.
[2021-10-29 11:33] VITALS: BP 116/77; PULSE 71
== END 2021-10-29 11:55 | disposition home or self-care (01) ==
LOC: ORWHC2ENDO 09:51
PROVIDERS: ATTEND Surgery
DX: K29.70 Gastritis, unspecified, without bleeding (principal); K21.00 Gastro-esophageal reflux disease with esophagitis, without bleeding; K44.9 Diaphragmatic hernia without obstruction or gangrene; E78.5 Hyperlipidemia, unspecified; I10 Essential (primary) hypertension; M79.7 Fibromyalgia; J18.9 Pneumonia, unspecified organism; G47.30 Sleep apnea, unspecified; R42 Dizziness and giddiness; M79.9 Soft tissue disorder, unspecified; G25.81 Restless legs syndrome; Z80.3 Family history of malignant neoplasm of breast; Z80.8 Family history of malignant neoplasm of other organs or systems; Z83.2 Family history of diseases of the blood and blood-forming organs and certain disorders involving the immune mechanism; Z86.73 Personal history of transient ischemic attack (TIA), and cerebral infarction without residual deficits; Z90.89 Acquired absence of other organs; Z90.49 Acquired absence of other specified parts of digestive tract; Z98.890 Other specified postprocedural states; Z90.710 Acquired absence of both cervix and uterus; Z87.19 Personal history of other diseases of the digestive system; Z98.41 Cataract extraction status, right eye; Z98.42 Cataract extraction status, left eye; Z96.691 Finger-joint replacement of right hand; Z79.899 Other long term (current) drug therapy
CPT/HCPCS: 88305; 43239; J2704; J2001

== ENCOUNTER → 2021-12-03 | Outpatient (CLI) | payer MEDICARE, OTHER ==
--- NOTE | 2021-12-03 12:34 | XR ---
EXAMINATION TYPE: XR lumbosacral spine min 4V DATE OF EXAM: 12/03/2021 11:53 AM INDICATION: Patient age:Female; 71 years old; Reason for study: [id number] LUMBAGO W RT SCIATICA; COMPARISON: CT abdomen pelvis 07/08/2020 TECHNIQUE: Frontal, lateral , bilateral oblique and coned in L5-S1 lateral views of the spine. FINDINGS: No evidence of any acute osseous pathology. No evidence of loss of vertebral body height i s seen. There is normal alignment of the lumbar vertebral bodies. Mild scattered disc space narrowing . Multilevel marginal osteophyte formation throughout the visualized spine. There is facet joint arth ropathy throughout the spine. Scattered at least mild neural foraminal stenosis. Upper quadrant olvin cystectomy clips peripherally calcified lesions seen most consistent with inspissated stool within th e colonic diverticula. IMPRESSION: 1. No acute fracture. 2. Moderate multilevel disc degeneration with at least mild neural foraminal stenosis at L4-L5 and L5 -S1.
== END | disposition home or self-care (01) ==
LOC: RADXRYALE 11:42
PROVIDERS: ATTEND Physician Assistant Medical
DX: M51.37 Other intervertebral disc degeneration, lumbosacral region (principal); M48.00 Spinal stenosis, site unspecified
CPT/HCPCS: 72110

== ENCOUNTER → 2022-01-10 | Outpatient (CLI) | payer MEDICARE, OTHER ==
--- NOTE | 2022-01-10 14:40 | BD ---
EXAMINATION TYPE: Axial Bone Density DATE OF EXAM: 01/10/2022 COMPARISON: NONE CLINICAL HISTORY: 71 year old Female. ICD-10 CODE: M85.9 DISORDER OF BONE DENSITY Height: 60 Weight: 156.0 FRAX RISK QUESTIONS: Alcohol (3 or more units per day): no Family History (Parent hip fracture): yes Glucocorticoids (More than 3mos): no (Ex: prednisone, prednisolone, methylprednisolone, dexamethasone, and hydrocortisone). History of Fracture in Adulthood: yes Secondary Osteoporosis: 1. Type 1 Diabetes: no 2. Hyperthyroidism: no 3. Menopause before 45: yes 4. Malnutrition: no 5. Chronic liver disease: no Rheumatoid Arthritis: no Current Tobacco Use: no RISK FACTORS HISTORY OF: History of Wrist Fracture: left wrist When: age 67 Surgery to Spine/Hip(right/left)/Wrist (right/left): no Family History of Osteoporosis: no Active: yes Diet low in dairy products/other sources of calcium: yes Postmenopausal woman: yes Lost more than 2 inches in height since high school: no MEDICATIONS: Additional History: EXAM MEASUREMENTS: Bone mineral densitometry was performed using the [employer] System. Bone mineral density as measured about the Lumbar spine is: ----- L1-L4(G/cm2): 1.068 T Score Values are as follows: ----- L1: -1.3 ----- L2: -1.3 ----- L3: -0.8 ----- L4: -0.7 ----- L1-L4: -0.9 Bone mineral density has: decreased -3.5 % since study of: 01.29.2010 Bone mineral density about the R hip (g/cm2): 0.824 Bone mineral density about the L hip (g/cm2): 0.772 T Score values are as follows: -----R Neck: -1.5 -----L Neck: -1.9 -----R Total: -0.8 -----L Total: -1.0 Bone mineral density has: decreased -10.6 % since study of: 01.29.2010 FRAX%s: The graph provided illustrates a 17.5% chance for a major osteoporotic fx and a 3.1% chance f or the hips probability for fx in 10 years time. IMPRESSION: Osteopenia (T Score between -2.5 and -1). There is slightly increased risk of fracture and the patient may be considered for treatment. Re-Screen 2-5 years. NOTE: T-SCORE=SD OF THE YOUNG ADULT MEAN.
--- NOTE | 2022-01-11 07:40 | MM ---
Reason for Exam: Screening (asymptomatic). Last mammogram was performed 3 year(s) and 8 month(s) ago. Patient History: Menarche at age 13. First Full-Term at age 20. Left ovary removed at age 33. Right ovary removed at age 33. Hysterectomy at age 33. Postmenopausal. Patient used Estrogen for 3 years. 01/12/2008, Excisional Biopsy on the Right side. 01/06/2008, Cancelled Right Mammotome on the right side. Sister had breast cancer, age 39. Risk Values: Carolyn 5 year model risk: 3.5%. NCI Lifetime model risk: 10.6%. Prior Study Comparison: 12/30/2013 Bilateral Screening Mammogram, [facility]. 03/24/2015 Bilateral Screening Mammogram, [facility]. 05/25/2018 Bilateral Screening Mammogram, [facility]. Tissue Density: The breast tissue is heterogeneously dense. This may lower the sensitivity of mammography. Findings: Analyzed By CAD. There is no suspicious group of microcalcifications or new suspicious mass in either breast. Overall Assessment: Benign, BI-RAD 2 Management: Screening Mammogram of both breasts in 1 year. A clinical breast exam by your physician is recommended on an annual basis and results should be correlated with mammographic findings. Electronically signed and approved by: Alex Cristina M.D. Radiologis
== END | disposition home or self-care (01) ==
LOC: RADMAMWWP 13:54
PROVIDERS: ATTEND Family Medicine
DX: Z12.31 Encounter for screening mammogram for malignant neoplasm of breast (principal); M85.89 Other specified disorders of bone density and structure, multiple sites; Z78.0 Asymptomatic menopausal state; Z80.3 Family history of malignant neoplasm of breast; Z98.890 Other specified postprocedural states
CPT/HCPCS: 77063; 77067; 77080

== ENCOUNTER → 2022-02-14 | Outpatient (CLI) | payer MEDICARE, OTHER ==
--- NOTE | 2022-02-14 15:11 | CT ---
EXAMINATION TYPE: CT brain wo con DATE OF EXAM: 02/14/2022 COMPARISON: 06/06/2021 HISTORY: Hx of TIA, cerebral infarction without residual deficits. Stat hold and call CT DLP: 1103.10 mGycm Automated exposure control for dose reduction was used. FINDINGS: Ventricular system is midline and compatible the patient's age. There is no evidence of displacement. No acute hemorrhage or mass prominent CSF attenuation bilaterally in the medial temporal classificat ion associated with arachnoid cyst. Correlate clinically. Further evaluation with MRI obtained as Eff ect. Hyperostosis of the calvarium. Changes of chronic left mastoiditis. Partially empty sella turcic a. IMPRESSION: NO ACUTE HEMORRHAGE OR MASS EFFECT.
== END | disposition home or self-care (01) ==
LOC: RADCTMAIN 14:24
PROVIDERS: ATTEND Family Medicine
DX: Z86.73 Personal history of transient ischemic attack (TIA), and cerebral infarction without residual deficits (principal)
CPT/HCPCS: 70450

== ENCOUNTER 2022-05-13 12:13 | Day surgery (SDC) | payer MEDICARE, OTHER ==
[~2022-05-13 12:13] MED LIST changes: +LIDOCAINE 1% (10MG/ML) FOR IV START INTRADERMA PRN
[2022-05-13 13:05] VITALS: TEMP 97.5
[2022-05-13] MEDS ORDERED: PROPOFOL 10 MG/ML 20 ML VIAL IV ONE (14:28)
[2022-05-13] MEDS ORDERED: LIDOCAINE 2% INJ 20 MG/ML (2 ML VIAL) ONE (14:28)
--- NOTE | 2022-05-13 14:53 | P.OP ---
Date of Procedure: 05/13/22 Preoperative Diagnosis: GERD Colitis Postoperative Diagnosis: Antral gastritis Diverticulosis Procedure(s) Performed: Colonoscopy Anesthesia: MAC Surgeon: Severo Meneses Pathology: other (Antrum) Condition: stable Disposition: PACU Description of Procedure: The patient's placed on the endoscopy table in the lateral position. She received IV sedation. The gastroscope placed oropharynx passed in the esophagus into the stomach. Scope was placed through the pylorus. The first and second portion of the duodenum appeared normal. Scope was then brought back the antrum this. Mildly inflamed. A biopsies was performed. Scope was then retroflexed and the remainder the stomach appeared normal. There was no significant hiatal hernia. The GE junction was at 40 cm per the distal esophagus appeared normal. The proximal esophagus. Scope withdrawn for patient. Next digital rectal exam performed. This revealed no abnormalities. Flexible colonoscope was then placed patient anus and passed throughout the entire colon. The ileocecal valve was visualized. The cecum, ascending and transverse colon had a few scattered diverticuli. There was more diverticula seen in the descending colon patient a previous sigmoid resection. The colorectal anastomosis visualized. The scope was then brought back the rectum and this appeared normal. Scope withdrawn for patient.
[2022-05-13 14:55] VITALS: RESP 16
[2022-05-13 15:08] VITALS: BP 148/80; PULSE 78
== END 2022-05-13 15:32 | disposition home or self-care (01) ==
LOC: ORWHC2ENDO 12:13
PROVIDERS: ATTEND Surgery
DX: K31.9 Disease of stomach and duodenum, unspecified (principal); K29.50 Unspecified chronic gastritis without bleeding; K57.30 Diverticulosis of large intestine without perforation or abscess without bleeding; K21.9 Gastro-esophageal reflux disease without esophagitis; K52.9 Noninfective gastroenteritis and colitis, unspecified; M79.7 Fibromyalgia; I10 Essential (primary) hypertension; E78.5 Hyperlipidemia, unspecified; J18.9 Pneumonia, unspecified organism; G47.33 Obstructive sleep apnea (adult) (pediatric); G25.81 Restless legs syndrome; Z86.73 Personal history of transient ischemic attack (TIA), and cerebral infarction without residual deficits; Z90.49 Acquired absence of other specified parts of digestive tract; Z90.710 Acquired absence of both cervix and uterus; Z98.890 Other specified postprocedural states; Z79.899 Other long term (current) drug therapy; Z99.89 Dependence on other enabling machines and devices
CPT/HCPCS: 45378; 43239; J2704; J2001; 88305

== ENCOUNTER → 2022-06-04 | Outpatient (CLI) | payer MEDICARE, OTHER ==
--- NOTE | 2022-06-04 13:05 | CT ---
EXAMINATION TYPE: CT abdomen pelvis w con CT DLP: 1026 mGycm, Automated exposure control for dose reduction was used. DATE OF EXAM: 06/04/2022 12:51 PM COMPARISON: CT abdomen pelvis most recent from 04/30/2022 . CLINICAL INDICATION:Female, 72 years old with history of K51.519; Transverse colon colitis TECHNIQUE: Standard CT of the abdomen and pelvis following the administration of 100 cc of Isovue 3 00 IV contrast material and oral contrast. Coronal and sagittal reformats were performed. FINDINGS: LOWER CHEST: Visualized lungs are clear. Heart is borderline prominent in size. No pericardial effusi on. ABDOMEN LIVER: Diffusely hypoattenuating parenchyma. No focal lesion. GALLBLADDER AND BILE DUCTS: The gallbladder is surgically absent. Stable prominence of the bile ducts . PANCREAS: Unremarkable. SPLEEN: Unremarkable. ADRENAL GLANDS: Unremarkable. KIDNEYS AND URETERS: No evidence of hydronephrosis or renal calculus. The kidneys enhance symmetrical ly without suspicious focal lesion. Contrast is demonstrated within both collecting systems on the de layed phase. PELVIS BLADDER: Unremarkable REPRODUCTIVE: The uterus is surgically absent. ABDOMEN & PELVIS STOMACH AND BOWEL: Small hiatal hernia with adjacent surgical clips at the GE junction from likely pr ior surgery, duodenum is unremarkable. Enteric contrast reaches the distal ileum. Anastomosis involvi ng the sigmoid colon region. Colonic diverticulosis of the descending and transverse colon without ev idence for acute diverticulitis. Resolution of previous demonstrated wall thickening involving the tr ansverse colon. No pericolonic abscess. No evidence of bowel obstruction. PERITONEUM: No evidence of pneumoperitoneum or free fluid. VASCULATURE: No evidence of aortic aneurysm. Multiple pelvic phleboliths. MUSCULOSKELETAL: No acute osseous abnormalities . Mild degenerative changes of the hips. Hypertrophic facet arthropathy of the mid to lower lumbar spine with grade 1 anterolisthesis of L5 on S1. DISH in volving the lower thoracic spine. LYMPH NODES: No gross evidence for lymphadenopathy. SOFT TISSUE/ABDOMINAL WALL: Unremarkable IMPRESSION: 1. No acute abdominal/pelvic process. Resolution of previously demonstrated colitis. 2. Colonic diverticulosis without evidence for acute diverticulitis. 3. Hepatic steatosis.
== END | disposition home or self-care (01) ==
LOC: RADCTMAIN 10:49
PROVIDERS: ATTEND Surgery
DX: K76.0 Fatty (change of) liver, not elsewhere classified (principal); K57.30 Diverticulosis of large intestine without perforation or abscess without bleeding; K51.519 Left sided colitis with unspecified complications
CPT/HCPCS: 82565; 84520; 74177; 36415; Q9967

== ENCOUNTER 2022-06-19 07:40 | Day surgery (SDC) | payer MEDICARE, OTHER ==
[2022-06-17 09:58] VITALS: BMI 29.7
[~2022-06-19 07:40] MED LIST changes: +ACETAMINOPHEN TAB 500 MG TAB PO PRN; +DEXAMETHASONE SOD PHOSPHATE 4 MG/ML 1 ML VIAL IV ONE; +ONDANSETRON 4 MG/2 ML VIAL IVP ONE; +Pre Op ABX Message 1 EACH MISC MISCELLANE ONE
[2022-06-19] MEDS: HEPARIN SODIUM,PORCINE/PF 5,000 UNIT/0.5 ML SYRINGE SQ PRN ×2 (08:50→09:29)
[2022-06-19 08:58] VITALS: RESP 16
[2022-06-19] MEDS ORDERED: MIDAZOLAM 2 MG/2 ML VIAL IVP ONE (09:12)
[2022-06-19] MEDS ORDERED: ROPIVACAINE 5 MG/ML 30 ML VIAL ONE (09:22)
[2022-06-19] MEDS ORDERED: MIDAZOLAM 2 MG/2 ML VIAL ONE (09:22)
[2022-06-19] MEDS ORDERED: ROCURONIUM 10 MG/ML (5 ML VIAL) IV ONE (09:22)
[2022-06-19] MEDS ORDERED: PROPOFOL 10 MG/ML 20 ML VIAL IV ONE (09:22)
[2022-06-19] MEDS ORDERED: NEOSTIGMINE 1 MG/ML 10 ML VIAL ONE (09:22)
[2022-06-19] MEDS ORDERED: DEXAMETHASONE SOD PHOSPHATE 4 MG/ML 1 ML VIAL ONE (09:22)
[2022-06-19] MEDS ORDERED: KETOROLAC 15 MG/ML 1 ML VIAL ONE (09:22)
[2022-06-19] MEDS ORDERED: LIDOCAINE 2% INJ 20 MG/ML (2 ML VIAL) ONE (09:22)
[2022-06-19] MEDS ORDERED: fentaNYL (PF) 50 MCG/ML 2 ML AMP ONE (09:22)
[2022-06-19] MEDS ORDERED: GLYCOPYRROLATE 0.2 MG/ML 2 ML VIAL ONE (09:22)
[2022-06-19] MEDS ORDERED: SUCCINYLCHOLINE CHLORIDE 200 MG/10 ML VIAL IV ONE (09:22)
[2022-06-19] MEDS ORDERED: SODIUM CHLORIDE 0.9% 50 ML with ceFAZolin 2,000 MG IV ONE ×2 (09:35)
[2022-06-19] MEDS ORDERED: BUPIVACAIN-EPI 0.25%-1:200,000 30 ML VIAL SQ ONE (09:45)
--- NOTE | 2022-06-19 10:23 | P.OP ---
Date of Procedure: 06/19/22 Preoperative Diagnosis: Partial small bowel obstruction Adhesions Postoperative Diagnosis: Extensive adhesions Procedure(s) Performed: Laparoscopic lysis of extensive Anesthesia: MAC Surgeon: Severo Meneses Estimated Blood Loss (ml): 5 Pathology: none sent Condition: stable Disposition: PACU Description of Procedure: Patient's placed on the operative table in the supine position. She received general endotracheal tube anesthesia. Her abdomen was prepped and draped usual fashion. Using an optical 5 mm trocar in the left upper quadrant the pleural cavity is entered. The abdomen was insufflated after adequate inflation the laparoscope placed back into the pleural cavity. A four-quadrant transversus abdominis plane block was performed using 1% local Xylocaine. There is extensive adhesions noted along the midline. Next a 5 mm trochars placed in the right upper quadrant another 5 mm trochars placed in the right lower quadrant and then another optical trocar is placed in the right mid position. The trochars were placed under direct vision. Using the Harmonic scissors and metastases months scissors the adhesions were lysed. Approximately 20 minutes of operative time used to lyse adhesions. All the adhesions along the midline scar were lysed. There is no injury to the bowel seen. There is no bleeding seen. This point the abdomen was deflated. The trochars withdrawn. Skin was closed interrupted 3-0 Monocryl suture. Dermabond dressing applied. Patient top she will sent to recovery in stable condition.
[2022-06-19 10:24] VITALS: TEMP 97.5
[2022-06-19] MEDS: HYDROmorphone 0.5 MG/0.5 ML SYRINGE IVP PRN ×3 (10:50→10:57)
[2022-06-19 12:07] VITALS: BP 145/87; PULSE 78
== END 2022-06-19 12:44 | disposition home or self-care (01) ==
LOC: OR 07:40
PROVIDERS: ATTEND Surgery
DX: K56.600 Partial intestinal obstruction, unspecified as to cause (principal); K56.51 Intestinal adhesions [bands], with partial obstruction; I10 Essential (primary) hypertension; E78.5 Hyperlipidemia, unspecified; G47.33 Obstructive sleep apnea (adult) (pediatric); K21.9 Gastro-esophageal reflux disease without esophagitis; Z90.710 Acquired absence of both cervix and uterus; Z90.49 Acquired absence of other specified parts of digestive tract; Z90.89 Acquired absence of other organs; Z98.890 Other specified postprocedural states; Z79.899 Other long term (current) drug therapy
CPT/HCPCS: 64999; 76942; 84132; 44180; J2250; J0330; J1100; J2710; J2405; J0690; J3010; J2795; J1885; J2704; J1170; J1644; J2001

== ENCOUNTER → 2022-12-27 | Outpatient (CLI) | payer MEDICARE, OTHER ==
--- NOTE | 2022-12-27 15:24 | MR ---
EXAMINATION TYPE: MR lumbar spine wo con DATE OF EXAM: 12/27/2022 COMPARISON: Prior MRI lumbar spine November 01, 2015 HISTORY: Low back pain into legs, outer thigh and front of calf TECHNIQUE: Multiplanar, multisequence imaging of the lumbar spine is performed without IV contrast. FINDINGS: Sagittal images of the lumbar spine show vertebral body heights and alignment to remain sta ble and satisfactory. Multilevel disc desiccation is redemonstrated but disk space heights are preser cari. The conus medullaris remains normal in position and signal ending at mid L1 level. The bone ma rrow signal intensity is within normal limits. Axial images show T12-L1 through L2-L3 levels remain within normal limits. Axial images at L3-L4 level show mild broad disc bulge minimally effacing anterior thecal sac along w ith mild facet arthropathy bilaterally. Findings new from prior. Bilateral neural foramina are patent . Axial images at L4-L5 level moderate to severe facet arthropathy and ligamentum flavum hypertrophy ef facing posterior lateral thecal sac and moderate broad-based posterior disc protrusion effacing the a nterior thecal sac. There is mild to moderate right greater than left bilateral neural foraminal narr owing. Findings are more prominent from prior. Axial images at L5-S1 level shows [id number] facet arthropathy bilaterally left greater than ri ght along with left lateral disc protrusion causing moderate to severe left-sided neural foraminal na rrowing and encroachment on the extraforaminal left L5 nerve sagittal image 4 and axial image 2 for r eference. Right-sided neural foramina is patent. Paraspinal muscle bulk is maintained. IMPRESSION: Multilevel degenerative changes in the mid to lower lumbar spine are seen and are new or more prominent from 2016 MRI.
== END | disposition home or self-care (01) ==
LOC: RADMRIMAIN 11:27
PROVIDERS: ATTEND Physical Medicine & Rehabilitation
DX: M47.26 Other spondylosis with radiculopathy, lumbar region (principal); M51.16 Intervertebral disc disorders with radiculopathy, lumbar region; M48.062 Spinal stenosis, lumbar region with neurogenic claudication
CPT/HCPCS: 72148

== ENCOUNTER → 2023-01-07 | Outpatient (CLI) | payer MEDICARE, OTHER ==
--- NOTE | 2023-01-07 14:49 | US ---
EXAMINATION TYPE: US thyroid st tissue head/neck DATE OF EXAM: 01/07/2023 COMPARISON: Thyroid ultrasound 07/11/2020, FNA thyroid 08/22/2020 CLINICAL INDICATION: Female, 72 years old with history of E04.2 NONTOXIC MULTINODULAR GOITER; thy nod ules GLAND SIZE: Right Lobe: 3.6 x 1.1 x 1.6 cm Overall Parenchyma: homogeneous Left Lobe: 4.8 x 1.4 x 1.8 cm Overall Parenchyma: heterogenous Isthmus Thickness: .2 cm NODULES RIGHT: # of nodules measured on right: 1 1. 1.3 X .9 x 1.1 cm, lower medial, solid or almost completely solid, hypoechoic nodule, which is w ider than tall, with smooth margins, without echogenic foci. TR 4. Prior size: 1.3 x .8 x 1.0 cm LEFT: # of nodules measured on left: 2 1. 1.2 X 1.0 x 1.6 cm, lower medial, solid or almost completely solid, hypoechoic nodule, which is wider than tall, with smooth margins, without echogenic foci. TR 4. Prior size: 1.5 x 1.0 x 1.4 cm 2. 2.2 X 1.1 x 1.6 cm, mid , solid or almost completely solid, hypoechoic nodule, which is wider t marshall tall, with smooth margins, without echogenic foci. TR 4. Prior size: 2.0 x 1.3 x 1.4 cm ISTHMUS: # of nodules measured in the isthmus: 0 Bilateral neck scanned, no evidence of lymphadenopathy. IMPRESSION: Stable bilateral thyroid nodules which have been previously biopsied. No new or enlarging or nodules.
== END | disposition home or self-care (01) ==
LOC: RADUSWWP 13:30
PROVIDERS: ATTEND Family Medicine
DX: E04.2 Nontoxic multinodular goiter (principal)
CPT/HCPCS: 76536

== ENCOUNTER → 2023-04-23 | Outpatient (CLI) | payer MEDICARE, OTHER ==
[2023-04-23 16:38] LABS: ALT 15 U/L (8-44); AST 19 U/L (13-35); Albumin 4.1 g/dL (3.8-4.9); Albumin/Globulin Ratio 2.05 Ratio (1.60-3.17); Alkaline Phosphatase 102 U/L (41-126); BUN/Creat Ratio 10.22 Ratio (12.00-20.00); Blood Urea Nitrogen 9.2 mg/dL (9.0-27.0); Calcium 9.6 mg/dL (8.7-10.3); Carbon Dioxide 27.9 mmol/L (21.6-31.8); Chloride 104 mmol/L (96-109); Chol/HDL Ratio 3.36 Ratio; Glucose 95 mg/dL (70-110); LDL Cholesterol,Calculated 114.2 mg/dL (0.0-131.0); Potassium 4.6 mmol/L (3.5-5.5); Sodium 144 mmol/L (135-145); Total Bilirubin 0.5 mg/dL (0.3-1.2); Total Protein 6.1 g/dL (6.2-8.2)
[2023-04-23 16:48] LABS: Basophils # (A) 0.05 X 10*3/uL (0.00-0.10); Basophils % (A) 0.5 %; Eosinophils # (A) 0.11 X 10*3/uL (0.04-0.35); Eosinophils % (A) 1.1 %; HCT 42.1 % (37.2-46.3); HGB 13.7 g/dL (12.0-15.0); Lymphocytes % (A) 29.4 %; MCH 31.3 pg (27.0-32.0); MCHC 32.5 g/dL (32.0-37.0); MCV 96.1 FL (80.0-97.0); Mean Platelet Volume 10.6 FL (9.5-12.2); Monocytes % (A) 8.1 %; NRBC Per 100 WBC 0 X 10*3/uL (0.00-0.01); Neutrophils # (A) 5.93 X 10*3/uL (1.80-7.70); Neutrophils % (A) 60.3 %; Platelet Count 307 X 10*3/uL (140-440); RBC 4.38 X 10*6/uL (4.10-5.20); RDW 12.8 % (11.5-14.5); WBC 9.85 X 10*3/uL (4.50-10.00)
== END | disposition home or self-care (01) ==
LOC: LABWHC1 08:53
PROVIDERS: ATTEND Physician Assistant Medical
DX: I10 Essential (primary) hypertension (principal); E55.9 Vitamin D deficiency, unspecified; E78.5 Hyperlipidemia, unspecified; R53.83 Other fatigue
CPT/HCPCS: 36415; 80053; 80061; 82306; 84443; 85025

== ENCOUNTER 2023-05-01 13:26 | Emergency (ER) | payer MEDICARE, OTHER ==
--- NOTE | 2023-05-01 14:34 | ED ---
Chest Pain HPI - General Chief Complaint: Extremity Problem,Nontraumatic Stated Complaint: Abn labs Time Seen by Provider: 05/01/23 14:24 Source: patient, RN notes reviewed, old records reviewed Mode of arrival: ambulatory Limitations: no limitations - History of Present Illness Initial Comments: This is a 73-year-old female to the ER for evaluation of chest pain today. Patient has been chest pain sent from urgent care to the emergency room today. Patient is also complaining of elevated blood pressure as well as persistent chest pain with mild symptoms of numbness and tingling back arm with shortness of breath. MD Complaint: chest pain -: hour(s) Onset: during rest, during exertion Pain Location: substernal, left chest Pain Radiation: LUE Severity: mild Severity scale (1-10): 2 Quality: tightness Consistency: constant Improves With: nothing Worsens With: nothing Other Symptoms: cough Treatments Prior to Arrival: none - Related Data Home Medications Medication Instructions Recorded Confirmed rOPINIRole HCL [Requip] 0.5 mg PO HS 04/26/16 06/19/22 oxyCODONE HCL [Roxicodone] 15 mg PO TID PRN 10/18/16 06/19/22 Baclofen 10 mg PO BID PRN 05/19/17 06/19/22 Ezetimibe [Zetia] 10 mg PO HS 05/10/18 06/19/22 Fluticasone Nasal Anderson [Flonase 1 spray EA NOSTRIL BID PRN 05/10/18 06/19/22 Nasal Anderson] Omeprazole 20 mg PO QAM 12/19/18 06/19/22 Celecoxib [CeleBREX] 200 mg PO BID PRN 07/09/19 06/17/22 Ergocalciferol [Vitamin D2 (1250 1,250 mcg PO TREVIZO 06/06/21 06/17/22 Mcg = 84026 Iu)] Triamcinolone 0.1% Cream [Kenalog 1 applic TOPICAL BID PRN 06/06/21 06/17/22 0.1% Cream] hydroCHLOROthiazide [Hydrodiuril] 25 mg PO QAM 06/06/21 06/19/22 Rimegepant Sulfate [Nurtec Odt] 1 tab PO Q4D 05/09/22 06/17/22 Ocrelizumab [Ocrevus] 300 mg IV Q182D 06/17/22 06/17/22 Previous Rx's Medication Instructions Recorded Acetaminophen Tab [Tylenol] 650 mg PO Q6H #30 tab 06/19/22 Docusate [Colace] 100 mg PO BID #20 capsule 06/19/22 Ibuprofen [Motrin] 600 mg PO Q6HR PRN #40 tab 06/19/22 oxyCODONE HCL [OxyIR] 5 mg PO Q6H PRN 3 Days #10 tab 06/19/22 Allergies Allergy/AdvReac Type Severity Reaction Status Date / Time No Known Allergies Allergy Verified 06/19/22 08:49 Review of Systems ROS Statement: Those systems with pertinent positive or pertinent negative responses have been documented in the HPI. ROS Other: All systems not noted in ROS Statement are negative. EKG Findings - EKG Comments: EKG Findings:: EKG is sinus 87 IA 143 QRS 79 QTc 386 - EKG Results: EKG: interpreted by ERMD Past Medical History Past Medical History: CVA/TIA, Fibromyalgia, GERD/Reflux, Hyperlipidemia, Hypertension, Musculoskeletal Disorder, Pneumonia, Sleep Apnea/CPAP/BIPAP Additional Past Medical History / Comment(s): NO CPAP USE, HX OF MS, hx VERTIGO AND HAS HAD FALLS, RESTLESS LEG, SLIGHT LEFT SIDED WEAKNESS FROM TIA X2, hx diverticulitis. neuropathy History of Any Multi-Drug Resistant Organisms: None Reported Past Surgical History: Appendectomy, Bowel Resection, Breast Surgery, Cholecystectomy, Hernia Repair, Hysterectomy, Orthopedic Surgery Additional Past Surgical History / Comment(s): RIGHT BREAST BIOPSY, BILATERAL CARPAL TUNNEL, thumb joint replacement, BONE SPUR REMOVED FROM PELVIS, SURGERY FOR ACID REFLUX, HEMORRHOIDECTOMY, BILATERAL CATARACTS, incisional hernia surgery X3, EGD. Past Anesthesia/Blood Transfusion Reactions: No Reported Reaction Past Psychological History: No Psychological Hx Reported Smoking Status: Never smoker Past Alcohol Use History: None Reported Past Drug Use History: None Reported - Past Family History Father Additional Family Medical History / Comment(s): at age 30- drowning Son(s) Family Medical History: Cancer Additional Family Medical History / Comment(s): MELENOMA. Sister(s) Family Medical History: Cancer Additional Family Medical History / Comment(s): BREAST CANCER. Mother Family Medical History: Deep Vein Thrombosis (DVT), Pulmonary Embolus General Exam Limitations: no limitations General appearance: alert, in no apparent distress Head exam: Present: atraumatic, normocephalic, normal inspection Eye exam: Present: normal appearance, PERRL, EOMI. Absent: scleral icterus, co njunctival injection, periorbital swelling ENT exam: Present: normal exam, mucous membranes moist Neck exam: Present: normal inspection. Absent: tenderness, meningismus, lymphadenopathy Respiratory exam: Present: normal lung sounds bilaterally. Absent: respiratory distress, wheezes, rales, rhonchi, stridor Cardiovascular Exam: Present: regular rate, normal rhythm, normal heart sounds. Absent: systolic murmur, diastolic murmur, rubs, gallop, clicks GI/Abdominal exam: Present: soft, normal bowel sounds. Absent: distended, tenderness, guarding, rebound, rigid Extremities exam: Present: normal inspection, full ROM, normal capillary refill. Absent: tenderness, pedal edema, joint swelling, calf tenderness Back exam: Present: normal inspection Neurological exam: Present: alert, oriented X3, CN II-XII intact Psychiatric exam: Present: normal affect, normal mood Skin exam: Present: warm, dry, intact, normal color. Absent: rash Course Vital Signs 05/01/23 05/01/23 05/01/23 13:46 16:13 18:07 Temperature 98.7 F Pulse Rate 95 87 Respiratory 16 18 Rate Blood Pressure 188/108 172/99 168/98 O2 Sat by Pulse 97 99 Oximetry 05/01/23 18:50 Temperature 98.1 F Pulse Rate 78 Respiratory 18 Rate Blood Pressure 173/98 O2 Sat by Pulse 99 Oximetry - Reevaluation(s) Reevaluation #1: Medical record is reviewed Reevaluation #2: Symptoms unchanged Reevaluation #3: Patient informed of results and questions answered Studies CT chest is negative for acute disease Reevaluation #4: Was pt. sent in by a medical professional or institution (, PA, REPAIR SERVICE CLERK, urgent care, hospital, or residential...) When possible be specific @ -no Did you speak to anyone other than the patient for history (EMS, parent, family, police, friend...)? What history was obtained from this source @ -no Did you review nursing and triage notes (agree or disagree)? Why? @ -agree Are old charts reviewed (outside hosp., previous admission, EMS record, old EKG, old radiological studies, urgent care reports/EKG's, residential records)? Report findings @ -yes Differential Diagnosis (chest pain, altered mental status, abdominal pain women, abdominal pain men, vaginal bleeding, weakness, fever, dyspnea, syncope, headache, dizziness, GI bleed, back pain, seizure, CVA, palpatations, mental health, musculoskeletal)? @ -prior EKG interpreted by me (3pts min.). @ -yes X-rays interpreted by me (1pt min.). @ -No CT interpreted by me (1pt min.). @ -yes negative for acute disease U/S interpreted by me (1pt. min.). @ -no What testing was considered but not performed or refused? (CT, X-rays, U/S, labs)? Why? @ -none What meds were considered but not given or refused? Why? @ -none Did you discuss the management of the patient with other professionals (professionals i.e. , PA, REPAIR SERVICE CLERK, lab, RT, psych nurse, social organization professor, liquid chlorine operator, teacher, global chief experience officer, case finisher)? Give summary @ -no Was smoking cessation discussed for >3mins.? @ -no Was critical care preformed (if so, how long)? @ -no Were there social determinants of health that impacted care today? How? (Homelessness, low income, unemployed, alcoholism, drug addiction, transportat ion, low edu. Level, literacy, decrease access to med. care, nursing home, rehab)? @ -none Was there de-escalation of care discussed even if they declined (Discuss DNR or withdrawal of care, Hospice)? DNR status @ -no What co-morbidities impacted this encounter? (DM, HTN, Smoking, COPD, CAD, Cancer, CVA, ARF, Chemo, Hep., AIDS, mental health diagnosis, sleep apnea, morbid obesity)? @ -none Was patient admitted / discharged? Hospital course, mention meds given and route, prescriptions, significant lab abnormalities, going to OR and other pertinent info. @ - 73-year-old female to the ER for evaluation of chest pain. Patient has no acute findings here in the ER and patient can be discharged home Discharge Undiagnosed new problem with uncertain prognosis? @ -no Drug Therapy requiring intensive monitoring for toxicity (Heparin, Nitro, Insulin, Cardizem)? @ -no Were any procedures done? @ -no Diagnosis/symptom? @ -Chest pain Acute, or Chronic, or Acute on Chronic? @ -Acute Uncomplicated (without systemic symptoms) or Complicated (systemic symptoms)? @ -Complicated Side effects of treatment? @ -no Exacerbation, Progression, or Severe Exacerbation? @ -exacerbation Poses a threat to life or bodily function? How? (Chest pain, [place], [place], pneumonia, PE, COPD, DKA, ARF, appy, cholecystitis, CVA, Diverticulitis, Homicidal, Suicidal, threat to staff... and all critical care pts) @ -yes with chest pain Reevaluation #5: Differential Chest Pain: Stable Angina, Unstable Angina, STEMI, NSTEMI Aortic Dissection, Pneumothorax, Musculoskeletal, Esophageal Spasm GERD, Cholecystitis, Pancreatitis, Zoster, this is not meant to be an all-inclusive list. Chest Pain MDM - MDM 73-year-old female to the ER for evaluation of chest pain. Patient has no acute findings here in the ER and patient can be discharged home Disposition Clinical Impression: Chest pain, Hypertension Disposition: HOME SELF-CARE Condition: Good Instructions (If sedation given, give patient instructions): Chest Pain (ED), Hypertension (ED) Is patient prescribed a controlled substance at d/c from ED?: No Referrals: Omid Hunter DO [Primary Care Provider] - 1-2 days Time of Disposition: 18:40
[2023-05-01 15:33] LABS: Basophils # (A) 0.1 k/uL (0-0.2); Basophils % (A) 1 %; Eosinophils # (A) 0.2 k/uL (0-0.7); Eosinophils % (A) 2 %; HCT 39.7 % (34.0-46.0); HGB 13.7 gm/dL (11.4-16.0); Lymphocytes # (A) 2.6 k/uL (1.0-4.8); Lymphocytes % (A) 24 %; MCH 32.5 pg (25.0-35.0); MCHC 34.4 g/dL (31.0-37.0); MCV 94.4 fL (80.0-100.0); Mean Platelet Volume 8.1; Monocytes # (A) 0.6 k/uL (0-1.0); Monocytes % (A) 5 %; Neutrophils # (A) 7.4 k/uL (1.3-7.7); Neutrophils % (A) 67 %; Platelet Count 287 k/uL (150-450); RBC 4.21 m/uL (3.80-5.40); RDW 12.9 % (11.5-15.5)
[2023-05-01 15:46] LABS: INR 0.9 (<1.2); Partial Thromboplastin Time 22.8 sec (22.0-30.0); Prothrombin Time 9.7 sec (10.0-12.5)
[2023-05-01 15:58] LABS: ALT 16 U/L (4-34); AST 28 U/L (14-36); African American GFR (CKD) >90 (>60 ml/min/1.73 sqM); Alkaline Phosphatase 93 U/L (38-126); Anion Gap 5 mmol/L; Blood Urea Nitrogen 8 mg/dL (7-17); Calcium 9.1 mg/dL (8.4-10.2); Carbon Dioxide 26 mmol/L (22-30); Chloride 110 mmol/L (98-107); Glucose 94 mg/dL (74-99); Non-African American GFR(CKD) 83 (>60 ml/min/1.73 sqM); Phosphorus 3.6 mg/dL (2.5-4.5); Potassium 4.1 mmol/L (3.5-5.1); Sodium 141 mmol/L (137-145); Total Bilirubin 0.6 mg/dL (0.2-1.3); Total Protein 6.4 g/dL (6.3-8.2)
[2023-05-01 16:06] LABS: NT-Pro-B-Type Natriuretic Pept 122 pg/mL
[2023-05-01 16:33] VITALS: RESP 18
[2023-05-01] MEDS: SODIUM CHLORIDE 0.9% 1,000 ML IV STA (17:24)
[2023-05-01] MEDS: KETOROLAC 15 MG/ML 1 ML VIAL IVP STA (17:25)
--- NOTE | 2023-05-01 18:04 | CT ---
CTA CHEST EXAMINATION TYPE: CT angio chest DATE OF EXAM: 05/01/2023 INDICATION: chest pain CT DLP: 255.3 mGycm, Automated exposure control for dose reduction was used. CONTRAST: Patient injected with 100 mL of Isovue 300. COMPARISON: None TECHNIQUE: CT of the chest is performed on a spiral scan at 2 mm thick sections. Study is performed with intravenous contrast timed for evaluation for pulmonary embolism. This will limit additional po rtions of the evaluation. 3-D MIP images reconstructed by the technologist are reviewed on the compu ter in the coronal and sagittal planes. FINDINGS: No persistent filling defects are evident to suggest an acute pulmonary embolism. No mediastinal or hilar adenopathy enlarged by CT criteria is evident. The ascending aorta diameter at the level of the main pulmonary artery is 3.7 cm. The main pulmonary artery diameter at the bifurcation is 1.9 cm. Lung windows are clear. Limited CT sections were through the upper abdomen. Upper abdomen appears unremarkable. IMPRESSION: 1. No acute pulmonary embolism. 2. No acute pulmonary process
[2023-05-01 19:00] VITALS: BP 173/98; PULSE 78; TEMP 98.1
== END 2023-05-01 18:54 | disposition home or self-care (01) ==
LOC: EC 13:26
DX: I10 Essential (primary) hypertension (principal); R07.89 Other chest pain; E78.5 Hyperlipidemia, unspecified; K21.9 Gastro-esophageal reflux disease without esophagitis; M79.7 Fibromyalgia; Z79.899 Other long term (current) drug therapy; Z86.73 Personal history of transient ischemic attack (TIA), and cerebral infarction without residual deficits; Z90.49 Acquired absence of other specified parts of digestive tract; Z90.710 Acquired absence of both cervix and uterus
CPT/HCPCS: 36415; 93005; 83880; 80053; 83735; 84100; 84484; 85025; 85610; 85730; 71275; 99285; 96374; 96361; J1885; Q9967

== ENCOUNTER → 2023-08-04 | Outpatient (CLI) | payer MEDICARE, OTHER ==
[2023-08-04 15:52] LABS: Blood Urea Nitrogen 15.1 mg/dL (9.0-27.0); Carbon Dioxide 25.5 mmol/L (21.6-31.8); Chloride 104 mmol/L (96-109); Potassium 3.8 mmol/L (3.5-5.5); Sodium 141 mmol/L (135-145)
[2023-08-04 16:00] LABS: HCT 37.8 % (37.2-46.3); HGB 12.9 g/dL (12.0-15.0); MCHC 34.1 g/dL (32.0-37.0); MCV 93.8 FL (80.0-97.0); Mean Platelet Volume 10.1 FL (9.5-12.2); NRBC Per 100 WBC 0 X 10*3/uL (0.00-0.01); Platelet Count 333 X 10*3/uL (140-440); RBC 4.03 X 10*6/uL (4.10-5.20); RDW 13.4 % (11.5-14.5); WBC 9.06 X 10*3/uL (4.50-10.00)
== END | disposition home or self-care (01) ==
LOC: LABPAT 11:14
PROVIDERS: ATTEND Internal Medicine Interventional Cardiology
DX: Z01.812 Encounter for preprocedural laboratory examination (principal); R94.39 Abnormal result of other cardiovascular function study
CPT/HCPCS: 80051; 82565; 84520; 85027

== ENCOUNTER 2023-08-07 05:47 | Day surgery (SDC) | payer MEDICARE, OTHER ==
[2023-08-07] MEDS ORDERED: HEPARIN SODIUM,PORCINE (1 ML) 2,500 UNIT in SODIUM CHLORIDE 0.9% 250 ML IRRIGATION PRN (05:57)
[2023-08-07] MEDS ORDERED: NITROGLYCERIN SL TABS 0.4 MG TAB SUBLINGUAL PRN (05:57)
[2023-08-07] MEDS ORDERED: ASPIRIN 325 MG TAB PO STA (05:57)
[2023-08-07] MEDS ORDERED: ALPRAZolam 0.5 MG TAB PO PRN (05:57)
[2023-08-07] MEDS ORDERED: ATORVASTATIN 80 MG TAB PO STA (05:57)
[2023-08-07] MEDS ORDERED: HEPARIN SODIUM,PORCINE 10,000 UNIT in SODIUM CHLORIDE 0.9% 1,000 ML IRRIGATION PRN (05:57)
[2023-08-07] MEDS ORDERED: ALPRAZolam 0.25 MG TAB PO PRN (05:57)
[2023-08-07 06:49] VITALS: TEMP 98.1
[2023-08-07] MEDS: SODIUM CHLORIDE 0.9% 1,000 ML in EMPTY BAG 1 BAG IV SCH (06:49)
[2023-08-07] MEDS: IV FLUID CONTINUATION 1,000 ML IV ONE (06:50)
[2023-08-07] MEDS ORDERED: VERAPAMIL 2.5 MG/ML 2 ML AMP ONE (07:12)
[2023-08-07] MEDS ORDERED: fentaNYL (PF) 50 MCG/ML 2 ML AMP ONE (07:12)
[2023-08-07] MEDS ORDERED: HEPARIN SODIUM 1,000 UN/ML (10ML VL) ONE (07:12)
[2023-08-07] MEDS ORDERED: LIDOCAINE 1% INJ 10MG/ML (20 ML MDV) ONE (07:12)
[2023-08-07] MEDS: fentaNYL (PF) 50 MCG/ML 2 ML AMP IVP ONE (07:55)
[2023-08-07] MEDS: LIDOCAINE 1% INJ 10MG/ML (20 ML MDV) SQ ONE (07:57)
[2023-08-07] MEDS: VERAPAMIL SYRINGE (5 MG/10 ML) INTRAARTER ONE (07:59)
[2023-08-07] MEDS: MIDAZOLAM 2 MG/2 ML VIAL IVP ONE (08:02)
[2023-08-07] MEDS: IOPAMIDOL-370 100ML BTL INJ ONE (08:08)
[2023-08-07] MEDS ORDERED: RX INFO: IV CONTRAST WAS GIVEN 1 EACH MISC MISCELLANE PRN (08:19)
--- NOTE | 2023-08-07 08:24 | P.CARDCATH ---
Date of Procedure: 08/07/23 Description of Procedure: Cardiac Catheterization: The patient is a 73-year-old female with known history of hypertension, hyperlipidemia who has been complaining of symptoms of chest discomfort and had an abnormal MPI. Recommendations were made regarding cardiac catheterization, the risks and the complications were discussed with the patient who is in full understanding and agreement. Procedure Description: Patient was brought to lab assistant in fasting semi-sedated state after receiving Fentanyl and Benadryl achieiving moderate conscious sedated state. Using Xylocaine Anesthesia and modified Seldinger technique, a 6-[place] Islander sheath was introduced in the right radial artery . Subsequently, selective coronary angiography was performed using a 5-[place]er 3.5 bend Edgar catheter. Multiple views of the coronary artery including hemiaxial views were obtained. The right Edgar catheter was used to cross the aortic valve and LVEDP was calculated. Following that, catheter and sheath were removed. Hemostasis was obtained with deployment of vascular band . There was no immediate complication. Patient was returned to room in stable condition. Of note, the patient received a total of 4000 units of intravenous heparin as well as intra-arterial verapamil. Findings: Left main: This is a large size vessel, bifurcating into LAD and left circumflex, left main has no obstructive disease LAD: This is a large size vessel, reaching to the apex, giving rise to 2 small diagonal branch. The LAD and its branches have no evidence of obstructive disease Left circumflex: This is a codominant vessel, large in caliber, giving rise to a large first obtuse marginal branch the second obtuse marginal branch is large as well. Distally bifurcating to PDA and PLV. The left circumflex and its branches have no evidence of obstructive disease RCA: This is a small nondominant vessel giving rise to a small PDA. The right coronary artery and its branches have no obstructive disease Left Ventriculogram: Not performed Hemodynamics: There was no gradient across aortic valve, LVEDP was 6-10 mmHg Conclusion: 1. Normal coronary arteries 2. Codominant system 3. Normal LVEDP Recommendations: The patient will continue on present therapy, I see no evidence to suggest cardiac etiology to her symptoms. The findings and the recommendations were discussed with the patient and the family and they were in full understanding and agreement. Duration of sedation is 15 minutes.
[2023-08-07] MEDS ORDERED: SODIUM CHLORIDE 0.9% 1,000 ML IV SCH (08:30)
[2023-08-07 08:46] VITALS: PULSE 74
[2023-08-07 09:57] VITALS: RESP 18
[2023-08-07 13:07] VITALS: BP 121/64
[2023-08-07] MEDS ORDERED: EZETIMIBE 10 MG TAB PO SCH (21:00)
[2023-08-07] MEDS ORDERED: ATORVASTATIN 20 MG TAB PO SCH (21:00)
[2023-08-08] MEDS ORDERED: HYDROCHLOROTHIAZIDE PO SCH (09:00)
[2023-08-08] MEDS ORDERED: LOSARTAN PO SCH (09:00)
== END 2023-08-07 11:50 | disposition home or self-care (01) ==
LOC: CATHCVL 05:47
PROVIDERS: ATTEND Internal Medicine Interventional Cardiology
DX: R94.39 Abnormal result of other cardiovascular function study (principal); R07.89 Other chest pain; I10 Essential (primary) hypertension; E78.5 Hyperlipidemia, unspecified; G35 Multiple sclerosis; G47.33 Obstructive sleep apnea (adult) (pediatric); Z79.82 Long term (current) use of aspirin; Z79.899 Other long term (current) drug therapy
CPT/HCPCS: 93458; 99152; J2250; J2001; J3010; J1644; Q9967

== ENCOUNTER → 2023-08-20 | Outpatient (CLI) | payer MEDICARE, OTHER ==
[2023-08-20 13:36] VITALS: BP 125/80; PULSE 78; RESP 16; TEMP 98
--- NOTE | 2023-08-20 14:00 | P.SLEEP ---
History of Present Illness DATE: 08/20/2023 CONSULTATION/NEW PATIENT EVALUATION HISTORY OF PRESENT ILLNESS/SLEEP-WAKE EVALUATION: 73-year-old lady had been e valuated in the sleep center for possible obstructive sleep apnea hypopnea syndrome. SLEEP SCHEDULE: Usually sleep schedule from 911 PM to 57 AM. FALLING ASLEEP: No problems with falling asleep. DURING SLEEP: Patient has loud snoring and witnessed episodes of stop breathing during the sleep by her daughter. Positive history of restless leg symptoms and possibly leg movements during the night. Patient wakes up from sleep up to 4 times with nocturia. Positive history of sweating and heartburn. No history of hypnogogical hallucinations, sleep paralysis, or cataplexy. DURING THE DAY/WAKE STATE: In the morning patient wake up tired, falling asleep during the day. [place]cott sleepiness scale is 9. Patient takes nap during the day between 2 and 5 PM. PAST MEDICAL HISTORY: Hypertension, multiple sclerosis, fibromyalgia, headaches, hyperlipidemia. PAST SURGICAL HISTORY: Please see below. MEDICATIONS: Please see below. SOCIAL HISTORY: Please see below. FAMILY HISTORY: Please see below. REVIEW OF SYSTEMS: Loud snoring, multiple awakenings from sleep, sleepiness during the day. No fevers. No double vision. No recent chest pain. No shortness of breath. No abdominal pain. No bleeding episodes. No blood in urine. No seizure episodes. PHYSICAL EXAMINATION: GENERAL: A pleasant patient without any distress. VITAL SIGNS: Please see below, short distance between soft palate and posterior pharyngeal wall, big uvula. HEENT: PERRLA, EOMI. Evaluation of oropharynx showed tongue protrudes midline, low position of soft palate Mallampati 23. NECK: Supple. No JVD. Thyroid is not palpable. 15-1/4 inches in circumference. LUNGS: Clear to percussion and to auscultation. Good air exchange. No wheezing or rhonchi. HEART: S1, S2 regular. No murmurs, gallops or rubs. ABDOMEN: Soft and nontender. Bowel sounds are present. No organomegaly appreciated. EXTREMITIES: No clubbing or cyanosis. ASSISTANT PROFESSOR OF DRAMA: Awake, alert, and oriented x3. Cranial nerves 2 to 7 intact. There is no fasciculation or atrophy noted. No focal deficits observed. ASSESSMENT: 1. Loud snoring, witnessed episodes of stop breathing during the sleep, multiple awakenings from sleep, episodes of sleepiness during the day. Obstructive sleep apnea hypopnea syndrome. 2. Mild obesity BMI 32.7. 3. Hypertension. 4. Restless leg symptoms. 5 possibly periodic limb movements. 6 . Acid reflux. 7. History of MS. 8. History of fibromyalgia. 9 . History of herniated disc. 10. Headaches. 11. Hyperlipidemia. PLAN: 1. Polysomnography for evaluation of patient's breathing during sleep. 2. Following plan after reading sleep study. 3. Preferable position during sleep on the side. 4. No driving if patient feels any sleepiness. Patient is aware of civil and criminal liability for unsafe driving. 5. Sleep hygiene with regular sleep time for at least 7.5-8 hours. 6. Watching weight. Thank you very much for referring this patient for consultation. Sincerely, Jaiden Castro MD, PhD, FAASM. Diplomat of [employer] [place], Sleep Medicine Board by [place] [place] [employer] Representative of [facility] [place] Past Medical History Past Medical History: Chest Pain / Angina, CVA/TIA, Fibromyalgia, GERD/Reflux, Hyperlipidemia, Hypertension, Musculoskeletal Disorder, Pneumonia, Sleep Apnea/CPAP/BIPAP Additional Past Medical History / Comment(s): NO CPAP USE, HX OF MS, hx VERTIGO AND HAS HAD FALLS, RESTLESS LEG, SLIGHT LEFT SIDED WEAKNESS FROM TIA X2, hx diverticulitis. neuropathy sob , bp keeps rising lft arm pain testing showed some irregularities History of Any Multi-Drug Resistant Organisms: None Reported Past Surgical History: Appendectomy, Bowel Resection, Breast Surgery, Cholecystectomy, Hernia Repair, Hysterectomy, Orthopedic Surgery Additional Past Surgical History / Comment(s): RIGHT BREAST BIOPSY, BILATERAL CARPAL TUNNEL, thumb joint replacement, BONE SPUR REMOVED FROM PELVIS, SURGERY FOR ACID REFLUX, HEMORRHOIDECTOMY, BILATERAL CATARACTS, incisional hernia surgery X3, EGD. Past Anesthesia/Blood Transfusion Reactions: No Reported Reaction Past Psychological History: No Psychological Hx Reported Smoking Status: Never smoker Past Alcohol Use History: None Reported Past Drug Use History: None Reported - Past Family History Father Additional Family Medical History / Comment(s): at age 30- drowning Son(s) Family Medical History: Cancer Additional Family Medical History / Comment(s): MELENOMA. Sister(s) Family Medical History: Cancer Additional Family Medical History / Comment(s): BREAST CANCER. Mother Family Medical History: Deep Vein Thrombosis (DVT), Pulmonary Embolus Medications and Allergies Home Medications Medication Instructions Recorded Confirmed Type rOPINIRole HCL [Requip] 0.5 mg PO HS 04/26/16 08/05/23 History oxyCODONE HCL [Roxicodone] 15 mg PO TID PRN 10/18/16 08/07/23 History Baclofen 10 mg PO BID PRN 05/19/17 08/20/23 History Ezetimibe [Zetia] 10 mg PO HS 05/10/18 08/20/23 History Fluticasone Nasal [place] [Flonase 1 spray EA NOSTRIL BID PRN 05/10/18 08/05/23 History Nasal [place]] Omeprazole 20 mg PO QAM 12/19/18 08/05/23 History Celecoxib [CeleBREX] 200 mg PO BID PRN 07/09/19 08/20/23 History Ergocalciferol [Vitamin D2 (1250 1,250 mcg PO TREVIZO 06/06/21 08/20/23 History Mcg = 13001 Iu)] Triamcinolone 0.1% Cream [Kenalog 1 applic TOPICAL BID PRN 06/06/21 08/07/23 History 0.1% Cream] Rimegepant Sulfate [Nurtec Odt] 1 tab PO Q4D PRN 05/09/22 08/07/23 History Ocrelizumab [Ocrevus] 300 mg IV Q182D 06/17/22 08/07/23 History Acetaminophen Tab [Tylenol] 650 mg PO Q6H #30 tab 06/19/22 08/05/23 Rx Ibuprofen [Motrin] 600 mg PO Q6HR PRN #40 tab 06/19/22 08/07/23 Rx Aspirin [Adult Low Dose Aspirin EC] 81 mg PO DAILY 08/05/23 08/07/23 History Atorvastatin [Lipitor] 20 mg PO HS 08/05/23 08/20/23 History Docusate [Colace] 100 mg PO BID PRN 08/05/23 08/07/23 History Levalbuterol Hfa Inhaler [Xopenex 1 puff INHALATION Q6HR PRN 08/05/23 08/05/23 History Hfa Inhaler] Loartan Hydrocholthiazide 1 tab PO DAILY 08/05/23 08/07/23 History Butalbital/Aspirin/Caffeine 1 each PO PRN 08/20/23 History [Nvqddmptlg-Ktxrzbi-Lyppewbj Tb] Allergies Allergy/AdvReac Type Severity Reaction Status Date / Time No Known Allergies Allergy Verified 08/07/23 06:34 Physical Exam Vitals: Vital Signs Temp Pulse Resp BP Pulse Ox 08/20/23 13:36 98.0 F 78 16 125/80 98 Intake and Output 08/19/23 08/20/23 08/20/23 22:59 06:59 14:59 Other: Weight 75.296 kg Sleep Note - Sleep Data ESS Total: 9 - Sleep Note Sleep Note: Temperature: 98.0 F Pulse Rate: 78 Respiratory Rate: 16 Blood Pressure: 125/80 SpO2: 98 Height: 4 ft 11.75 in Weight: 75.296 kg BMI: Neck Circumference: 15.2
== END ==
LOC: 3 N SLEEP 13:06
PROVIDERS: ATTEND Internal Medicine
DX: G47.33 Obstructive sleep apnea (adult) (pediatric) (principal); E66.9 Obesity, unspecified; I10 Essential (primary) hypertension; G25.81 Restless legs syndrome; K21.9 Gastro-esophageal reflux disease without esophagitis; R51.9 Headache, unspecified; E78.5 Hyperlipidemia, unspecified; Z86.69 Personal history of other diseases of the nervous system and sense organs; Z87.39 Personal history of other diseases of the musculoskeletal system and connective tissue; Z68.32 Body mass index [BMI] 32.0-32.9, adult; Z79.899 Other long term (current) drug therapy
CPT/HCPCS: 99211

== ENCOUNTER → 2024-02-10 | Outpatient (CLI) | payer MEDICARE, OTHER ==
[2024-02-10 15:45] LABS: ALT 12 U/L (8-44); AST 17 U/L (13-35); Chol/HDL Ratio 3.34 Ratio; LDL Cholesterol,Calculated 113.2 mg/dL (0.0-131.0)
== END | disposition home or self-care (01) ==
LOC: LABWHC1 09:55
PROVIDERS: ATTEND Internal Medicine Interventional Cardiology
DX: E78.2 Mixed hyperlipidemia (principal)
CPT/HCPCS: 36415; 80061; 84450; 84460

== ENCOUNTER 2024-04-20 19:26 | Outpatient (CLI) | payer MEDICARE, OTHER ==
--- NOTE | 2024-04-21 17:34 | P.PCN ---
Description of Procedure: POLYSOMNOGRAPHY REPORT PROCEDURE(S)/DATE(S): Polysomnography 04/20/2024 CLINICAL: Patient has been seen in the sleep center for evaluation of obstructive sleep apnea-hypopnea syndrome. Please see my consultation. Sleep study has been done for evaluation of patient breathing during the sleep. PROCEDURE: The standard montage for clinical polysomnography included the electroencephalogram, the electrooculogram, the mentalis surface electromyography and Lead II cardiography. The respiratory battery consisted of measurements of nasal/buccal air flow, pressure transducer measurements from nose, thoracic and/or abdominal effort and intercostal surface electromyography. Video monitoring has been done to check for any parasomnia events. Nocturnal oxyhemoglobin saturations were obtained by finger oximetry. Step-jon titration with positive airway pressure was utilized to control the respiratory events, if necessary. RESULTS: During the diagnostic sleep study sleep efficiency was practically normal 87.7%. Latency to sleep onset was normal 9.0 min. Sleep architecture showed stage NI was short 3.6%, Delta sleep was absent 0%, REM sleep was short 8.6%. Respiratory channel showed 13 obstructive apneas, 0 mixed apneas, 1 central apneas, 21 hypopneas with lowest oxygen level 80%. Total apnea hypopnea index was 5.8. Heart rate was in the range between 73 and 79, average 76. EMG showed 1.0 periodic limb movements per hour with 1.0 micro-arousals per hour. IMPRESSIONS: 1. Mild obstructive sleep apnea hypopnea syndrome. 2. No significant periodic limb movements have been documented. 3. Hypertension. 4. History of MS. Please see other impressions from consultation PLAN: 1. The patient will AutoPAP treatment for correction of respiratory abnormalities during the sleep. 2. Watching weight. 3. Sleep hygiene with regular time in bed for at least 7-1/2 hours. 4. No driving if feeling sleepiness. 5. I will see patient for follow-up visit to evaluate clinical response on treatment, compliance with treatment and [place] adjustments related to mask fitting pressure and humidification. Thank you very much for allowing me to participate in the management of your patient. Sincerely, Jaiden Castro MD, PhD, FAASM. Diplomat of [place] [employer], Sleep Medicine Board by [place] [employer] Technical Spec of [facility] [place] cc: Omid Hunter DO
== END 2024-04-21 05:11 | disposition home or self-care (01) ==
LOC: 3 N SLEEP 19:26
PROVIDERS: ATTEND Internal Medicine
DX: G47.33 Obstructive sleep apnea (adult) (pediatric) (principal); I10 Essential (primary) hypertension; Z86.61 Personal history of infections of the central nervous system
CPT/HCPCS: 95810

== ENCOUNTER → 2024-06-10 | Outpatient (CLI) | payer MEDICARE, OTHER ==
[2024-06-11 02:39] LABS: Basophils # (A) 0.05 X 10*3/uL (0.00-0.10); Basophils % (A) 0.5 %; Eosinophils # (A) 0.04 X 10*3/uL (0.04-0.35); Eosinophils % (A) 0.4 %; HCT 40.8 % (37.2-46.3); HGB 13.1 g/dL (12.0-15.0); Lymphocytes # (A) 2.91 X 10*3/uL (0.90-5.00); MCH 31.7 pg (27.0-32.0); MCHC 32.1 g/dL (32.0-37.0); MCV 98.8 FL (80.0-97.0); Mean Platelet Volume 10.8 FL (9.5-12.2); Monocytes # (A) 0.74 X 10*3/uL (0.20-1.00); Monocytes % (A) 7.9 %; NRBC Per 100 WBC 0 X 10*3/uL (0.00-0.01); Neutrophils # (A) 5.61 X 10*3/uL (1.80-7.70); Neutrophils % (A) 59.9 %; Platelet Count 307 X 10*3/uL (140-440); RBC 4.13 X 10*6/uL (4.10-5.20); RDW 13.6 % (11.5-14.5); WBC 9.38 X 10*3/uL (4.50-10.00)
[2024-06-11 03:14] LABS: ALT 15 U/L (8-44); AST 21 U/L (13-35); Albumin 4.4 g/dL (3.8-4.9); Alkaline Phosphatase 97 U/L (41-126); BUN/Creat Ratio 12.82 Ratio (12.00-20.00); Blood Urea Nitrogen 14.1 mg/dL (9.0-27.0); Calcium 9.6 mg/dL (8.7-10.3); Carbon Dioxide 21.5 mmol/L (21.6-31.8); Chloride 107 mmol/L (96-109); Chol/HDL Ratio 2.63 Ratio; Globulin 2.1 g/dL (1.6-3.3); Glucose 99 mg/dL (70-110); LDL Cholesterol,Calculated 112.9 mg/dL (0.0-131.0); Potassium 3.9 mmol/L (3.5-5.5); Sodium 145 mmol/L (135-145); Total Bilirubin 0.6 mg/dL (0.3-1.2); Total Protein 6.5 g/dL (6.2-8.2); VLDL Calculation 17.16 mg/dL (5.00-40.00)
== END | disposition home or self-care (01) ==
LOC: LABWHC1 15:08
PROVIDERS: ATTEND Family Medicine
DX: Z00.00 Encounter for general adult medical examination without abnormal findings (principal); I10 Essential (primary) hypertension; E55.9 Vitamin D deficiency, unspecified; E78.5 Hyperlipidemia, unspecified; G35 Multiple sclerosis; R53.83 Other fatigue; Z79.899 Other long term (current) drug therapy
CPT/HCPCS: 36415; 80053; 80061; 82306; 84443; 85025

== ENCOUNTER → 2024-06-15 | Outpatient (CLI) | payer MEDICARE, OTHER ==
--- NOTE | 2024-06-15 15:33 | XR ---
EXAMINATION TYPE: XR shoulder complete LT DATE OF EXAM: 06/15/2024 3:20 PM INDICATION: Patient age:Female; 74 years old; Reason for study: [id number] LT SHLD PAIN; pain COMPARISON: Left shoulder radiograph 12/19/2018 TECHNIQUE: The left shoulder was examined in AP, internally rotated and scapular Y projections. . FINDINGS: No evidence of acute osseous pathology, joint dislocation, or soft tissue swelling. Remote fracture i nvolving the greater tuberosity of the humerus. AC joint arthropathy with joint space narrowing. The remaining portions of the visualized chest are unremarkable. IMPRESSION: 1. No acute osseous pathology. 2. Mild AC joint arthropathy. 3. Remote Hill-Sachs deformity of the humerus. [facility], , 06/15/2024 3:31 PM
== END | disposition home or self-care (01) ==
LOC: RADXRYALE 14:54
PROVIDERS: ATTEND Physician Assistant Medical
DX: M19.012 Primary osteoarthritis, left shoulder (principal)